=== PATIENT | male | born 1965 ===

== ENCOUNTER 2020-07-20 06:12 | Outpatient (REF) | payer OTHER, SELFPAY ==
[2020-07-20 07:17] LABS: Estimated Average Glucose 120 mg/dL; Hemoglobin A1c % 5.8 %
[2020-07-20 07:23] LABS: Alanine Aminotransferase 17 U/L (0-40); Albumin Level 4.2 g/dL (3.5-5.0); Alkaline Phosphatase 42 U/L (39-117); Anion Gap 13 (12-20); Aspartate Amino Transferase 20 U/L (5-37); Bilirubin Total 0.5 mg/dL (0.0-1.0); Blood Urea Nitrogen 17 mg/dL (9-16); Calcium 8.4 mg/dL (8.4-10.2); Carbon Dioxide 25 mmol/L (22-29); Chloride 105 mmol/L (96-108); Estimated Glomerular Filt Rate > 60; Glucose Random 102 mg/dL (60-115); Potassium 4.3 mmol/l (3.3-5.1); Sodium 139 mmol/L (135-145); Total Protein 6.7 g/dL (6.5-8.0)
== END 2020-07-20 06:13 | disposition home or self-care (01) ==
LOC: HO.LAB 06:12
PROVIDERS: PCP Internal Medicine; Visit Provider Internal Medicine
DX: R73.02 Impaired glucose tolerance (oral) (principal)
CPT/HCPCS: 80053; 83036

== ENCOUNTER 2020-11-18 12:04 | Emergency (ER) | payer OTHER, SELFPAY ==
--- NOTE | ~2020-11-18 | US_ITS ---
EXAMINATION: US SCROTUM CLINICAL INFORMATION: Pain. Evaluate for torsion.. COMPARISON: None TECHNIQUE: A sonogram of the scrotum was performed assessing yin-scale appearance and color Doppler flow. Spectral Doppler analysis of the arterial and venous flow were performed in the testes bilaterally. FINDINGS: RIGHT: Right testicle measures 4.3 x 2 x 3.2 cm. No focal testicular parenchymal lesions are visualized. There is an appendix testis. Spectral Doppler analysis of the arterial and venous flow is normal in the right testis. Right epididymal head is normal in size. There is a small right hydrocele. No right varicocele is seen. Right epididymal Doppler flow is increased. LEFT: Left testicle measures 3.8 x 2.1 x 3.1 cm. Left testicular echotexture is slightly heterogeneous. No focal testicular parenchymal lesions are visualized. There is an appendix testis. Spectral Doppler analysis of the arterial and venous flow is increased in the left testis. Left epididymal head is normal in size. There is a small left hydrocele. No left varicocele is seen. Left epididymal Doppler flow is increased. US/US scrotum IMPRESSION: No evidence of torsion. Increased flow to the left testicle and the left testicle is slightly heterogeneous questionable for orchitis. There is also increased flow to both epididymides questionable for bilateral epididymitis. There are small bilateral hydroceles.
--- NOTE | ~2020-11-18 | US_ITS ---
EXAMINATION: US SCROTUM CLINICAL INFORMATION: Pain. Evaluate for torsion.. COMPARISON: None TECHNIQUE: A sonogram of the scrotum was performed assessing yin-scale appearance and color Doppler flow. Spectral Doppler analysis of the arterial and venous flow were performed in the testes bilaterally. FINDINGS: RIGHT: Right testicle measures 4.3 x 2 x 3.2 cm. No focal testicular parenchymal lesions are visualized. There is an appendix testis. Spectral Doppler analysis of the arterial and venous flow is normal in the right testis. Right epididymal head is normal in size. There is a small right hydrocele. No right varicocele is seen. Right epididymal Doppler flow is increased. LEFT: Left testicle measures 3.8 x 2.1 x 3.1 cm. Left testicular echotexture is slightly heterogeneous. No focal testicular parenchymal lesions are visualized. There is an appendix testis. Spectral Doppler analysis of the arterial and venous flow is increased in the left testis. Left epididymal head is normal in size. There is a small left hydrocele. No left varicocele is seen. Left epididymal Doppler flow is increased. US/US scrotum doppler IMPRESSION: No evidence of torsion. Increased flow to the left testicle and the left testicle is slightly heterogeneous questionable for orchitis. There is also increased flow to both epididymides questionable for bilateral epididymitis. There are small bilateral hydroceles.
[2020-11-18 12:30] VITALS: BP 139/74; PULSE 65; RESP 16; TEMP 37.1; O2SAT 99; BMI 33.0
[2020-11-18 14:17] VITALS: BP 140/71; PULSE 59; RESP 14; TEMP 36.6; O2SAT 98
[2020-11-18 14:47] LABS: MANUAL DIFF FLAG NO
[2020-11-18 14:51] LABS: Basophils Absolute Auto 0.1 X10*3/uL (0.0-0.2); Basophils Percent Auto 0.8 % (0-2); Eosinophils Absolute Auto 0.3 X10*3/uL (0.0-0.4); Eosinophils Percent Auto 3.6 % (0-4); Hematocrit 40.9 % (42-52); Imm Gran Abs Auto 0.02 X10*3/uL (0.00-0.03); Imm Gran Pct Auto 0.3 % (0.0-0.4); Lymphocytes Absolute Auto 2.5 X10*3/uL (1.2-4.9); Lymphocytes Percent Auto 33.4 % (20-40); Mean Corpuscular HGB Conc 31.8 g/dl (31.0-36.0); Mean Corpuscular Hemoglobin 26.7 pg (27.0-33.0); Mean Corpuscular Volume 84.2 fL (80-98); Mean Platelet Volume 9.3 fL (9.4-12.4); Monocytes Absolute Auto 0.7 X10*3/uL (0.1-1.2); Monocytes Percent Auto 8.6 % (2-11); Neutrophils Percent Auto 53.3 % (45-73); Platelet Count 261 X10*3/uL (160-400); Red Blood Count 4.86 X10*6/uL (4.60-5.80); Red Cell Distribution Width 13.9 % (11.0-16.0); White Blood Count 7.6 X10*3/uL (4.8-10.8)
[2020-11-18 15:17] LABS: Alanine Aminotransferase 23 U/L (0-40); Albumin Level 4.4 g/dL (3.5-5.0); Alkaline Phosphatase 46 U/L (39-117); Anion Gap 9 (12-20); Aspartate Amino Transferase 21 U/L (5-37); Bilirubin Total 0.4 mg/dL (0.0-1.0); Blood Urea Nitrogen 16 mg/dL (9-16); Calcium 8.9 mg/dL (8.4-10.2); Carbon Dioxide 28 mmol/L (22-29); Chloride 107 mmol/L (96-108); Creatinine Clr Calc Pharmacy 103.4; Estimated Glomerular Filt Rate > 60; Glucose Random 109 mg/dL (60-115); Potassium 4.1 mmol/L (3.3-5.1); Sodium 140 mmol/L (135-145); Total Protein 7.1 g/dL (6.5-8.0)
--- NOTE | 2020-11-18 16:06 | ED.MALEGU ---
HPI - Male Genitourinary General Chief complaint: General Medical Stated complaint: ABD PAIN Time Seen by Provider: 11/18/20 13:56 Source: patient Mode of arrival: ambulatory Limitations: language barrier (Congolese-speaking) History of Present Illness HPI Narrative: 55-year-old male with a past medical history of asthma, impaired glucose intolerance and tubular adenoma of colon presenting to the ED with complaints of atraumatic left groin pain for the past week worse today. Reports that he walks a lot denies any other possible injuries. Denies any fevers, nausea/vomiting, abdominal pain, dysuria, hematuria, abnormal penile discharge, testicular pain/swelling, lesions or sores to the penis, or thoughts of STD. Denies any other symptom complaints or concerns at this time. Patient reports he was sexually active 3 months ago with someone he is no longer with and he did not use condoms. Related Data Previous Rx's Medication Instructions Recorded budesonide-formoterol HFA 80 2 puff INHALATION BID #10.2 g 06/30/20 mcg-4.5 mcg/actuation aerosol inhaler albuterol sulfate 90 mcg/actuation 2 puff INHALATION Q4-6H PRN #18 g 07/02/20 aerosol inhaler morphine 15 mg tablet,extended 15 mg PO Q8H PRN #84 tab 10/20/20 release oxycodone-acetaminophen 5 mg-325 1 tab PO Q6H PRN 28 Days #112 tab 10/20/20 mg tablet cyclobenzaprine 10 mg PO Q8H #10 tab 11/18/20 doxycycline monohydrate 100 mg PO BID 10 Days #20 cap 11/18/20 naproxen 500 mg PO BID PRN #10 tab 11/18/20 Allergies Allergy/AdvReac Type Severity Reaction Status Date / Time No Known Allergies Allergy Verified 06/08/20 09:56 Review of Systems Review of Systems: Constitutional : No Weight loss, No Fever, No Chills, No Night Sweats, No Fatigue, NoMalaise ENT/Mouth: No ear pain, No sore throat, No Difficulty swallowing Cardiovascular : No Chest Pain, No SOB, No Dyspnea on Exertion, No Orthopnea, NoEdema, No Palpitations Respiratory : No Cough, No Sputum, No Wheezing, No Dyspnea Gastrointestinal : No Nausea, No Vomiting, No abdominal pain, No Diarrhea, No blood streaked emesis, No coffee-ground emesis, No gross hematemesis, No blood streak stool, No gross hematochezia, No Melena Genitourinary : + left groin pain, No irregular bleeding, No Dysuria, No Urinary Frequency, No Hematuria,No Urinary Incontinence, No Urgency, No Flank Pain Musculoskeletal : No joint pain, No Myalgias, No Joint Swelling Skin : No Skin Lesions, No rash Neuro : No Weakness, No Numbness, No Paresthesias, No Loss of Consciousness, NoDizziness, No Headache Psych : No Social Issues, Heme/Lymph: No Bruising, No Bleeding,No Lymphadenopathy Endocrine : No Polyuria, No Polydipsia, No Temperature Intolerance Yes all other systems are reviewed and are negative [facility] Past Medical History Attestation statement: The following information was validated with the patient. Medical History Asthma Carpal tunnel syndrome of right wrist Cervicalgia Impaired glucose tolerance Obesity (BMI 30-39.9) Tubular adenoma of colon Ulnar nerve entrapment Surgical History History of neck surgery Family History Family History Father Cancer Diabetes Hypertension Mother Hypertension CVD (cardiovascular disease) Social History Social History Alcohol intake: never Smoking Status: Never smoker Use of substances other than those prescribed or required for medical reasons: No Advance Directives: No Advance Directives Information Provided: No Physical Exam Vital Signs: Vital Signs: Last Vital Signs Temp 97.9 F 11/18/20 14:17 Pulse 59 11/18/20 14:17 Resp 14 11/18/20 14:17 BP 140/71 H 11/18/20 14:17 Pulse Ox 98 11/18/20 14:17 Body Mass Index 33.0 vital signs have been reviewed as normal and appeared to be correct. Blood pressure normal. Heart rate normal. Respiration rate normal. Temperature normal. Oxygen saturation normal. Appearance: Alert. Oriented X3. No acute distress. Head: Normal external exam. Normocephalic. Atraumatic. Eyes: PERRLA. EOMI. Conjunctiva and sclera normal. Eyelids normal. ENT: Pharynx normal. Uvula midline. Moist mucous membranes. Neck: Normal inspection. Neck supple. FROM. No adenopathy. Thyroid Normal. No meningeal signs. No neck mass noted. CVS: Normal heart rate and rhythm. Heart sound normal. No murmurs noted. Pulses normal throughout. Respiratory: No respiratory distress. Painless inspiration. Breath sounds normal. No wheezes/rales/rhonchi noted. Chest nontender. No accessory muscle usage noted or decreased air movement noted. Abdomen: Soft and nontender. Bowel sounds normal in all 4 quadrants. No distention noted. No organomegaly noted. No visible injury noted. : Chaperoned by SRI Garcia. Normal external exam. No ecchymosis/edema/erythema. No hernia noted. No inguinal lymphadenopathy noted. Mild left groin pain. No lacerations/lesions/induration noted. Normal penis. No Condyloma noted. No ecchymosis/erythema/swelling/edematous/mass/nodule/papules/pustules/vesicles. Not consistent with paraphimosis or phimosis. No ulcerations or lesions noted. The meatus is normal. No meatal discharge noted. No blood at the meatus. The scrotum is normal. Cremasteric reflex absent. No ecchymosis/edematous/erythema noted. Testicles are both descended bilaterally. No hydrocele noted. No inguinal hernia noted. No scrotal mass/swelling noted. No ulcerations or varicocele. Testicles appear normal. They lie normal. Epididymides normal. No blue dot sign. Testicles are not enlarged. No epididymal induration/mass/tenderness. No testicular mass noted. No testicular swelling/tenderness. No high-riding testicle noted. No testicular atrophy noted. Back: No CVA tenderness. Full range of motion noted. Skin: Skin warm and dry. Normal skin color. Normal skin turgor. No rashes/lesions/lacerations noted. Extremities: Extremities exhibit normal range of motion. Extremities nontender. Neuro: Oriented X 3. No motor deficit. No sensory deficit. Reflexes normal. Course Course Course Narrative: 55-year-old male presenting to the ED with atraumatic left groin pain for the past week worse today. Unsure if it is related to walking. Recently sexually active unprotected. - labs obtained and all within normal limits. - ultrasound revealed No evidence of torsion. Increased flow to the left testicle and the left testicle is slightly heterogeneous questionable for orchitis. There is also increased flow to both epididymides questionable for bilateral epididymitis. There are small bilateral hydroceles. - awaiting UA and gonorrhea chlamydia sample. - will treat for gonorrhea chlamydia and instructions to return if any new or worsening symptoms to follow up with primary care provider. Patient understands agrees the plan. MDM - Male Genitourinary Medical Records Attestation: I reviewed the patient's medical records. Lab Data Attestation: I reviewed the patient's lab results. Result diagrams: 11/18/20 14:42 11/18/20 14:42 Labs: Lab Results 11/18/20 11/18/20 Range/Units 14:42 14:42 WBC 7.6 (4.8-10.8) X10*3/uL RBC 4.86 (4.60-5.80) X10*6/uL Hgb 13.0 L (14.0-18.0) g/dl Hct 40.9 L (42-52) % MCV 84.2 (80-98) fL MCH 26.7 L (27.0-33.0) pg MCHC 31.8 (31.0-36.0) g/dl RDW 13.9 (11.0-16.0) % Plt Count 261 (160-400) X10*3/uL MPV 9.3 L (9.4-12.4) fL Immature Gran % (Auto) 0.3 (0.0-0.4) % Neut % (Auto) 53.3 (45-73) % Lymph % (Auto) 33.4 (20-40) % Gates % (Auto) 8.6 (2-11) % Eos % (Auto) 3.6 (0-4) % Baso % (Auto) 0.8 (0-2) % Lymph # (Auto) 2.5 (1.2-4.9) X10*3/uL Gates # (Auto) 0.7 (0.1-1.2) X10*3/uL Eos # (Auto) 0.3 (0.0-0.4) X10*3/uL Baso # (Auto) 0.1 (0.0-0.2) X10*3/uL Abs Immat Gran (auto) 0.02 (0.00-0.03) X10*3/uL Absolute Neuts (auto) 4.0 (2.0-8.3) X10*3/uL Absolute Nucleated RBC 0.000 (0.0-0.012) X10*3/uL Nucleated RBC % (auto) 0.0 (0.0-0.2) /100WBC Sodium 140 (135-145) mmol/L Potassium 4.1 (3.3-5.1) mmol/L Chloride 107 (96-108) mmol/L Carbon Dioxide 28 (22-29) mmol/L Anion Gap 9 L (12-20) BUN 16 (9-16) mg/dL Creatinine 0.84 (0.5-1.4) mg/dL Estim Creat Clear Calc 103.4 Estimated GFR > 60 Random Glucose 109 (60-115) mg/dL Calcium 8.9 (8.4-10.2) mg/dL Total Bilirubin 0.4 (0.0-1.0) mg/dL AST 21 (5-37) U/L ALT 23 (0-40) U/L Alkaline Phosphatase 46 (39-117) U/L Total Protein 7.1 (6.5-8.0) g/dL Albumin 4.4 (3.5-5.0) g/dL Imaging Data Scrotum ultrasound: Attestation: I personally reviewed and interpreted this imaging study as follows: Radiologist's impression: FINDINGS: RIGHT: Right testicle measures 4.3 x 2 x 3.2 cm. No focal testicular parenchymal lesions are visualized. There is an appendix testis. Spectral Doppler analysis of the arterial and venous flow is normal in the right testis. Right epididymal head is normal in size. There is a small right hydrocele. No right varicocele is seen. Right epididymal Doppler flow is increased. LEFT: Left testicle measures 3.8 x 2.1 x 3.1 cm. Left testicular echotexture is slightly heterogeneous. No focal testicular parenchymal lesions are visualized. There is an appendix testis. Spectral Doppler analysis of the arterial and venous flow is increased in the left testis. Left epididymal head is normal in size. There is a small left hydrocele. No left varicocele is seen. Left epididymal Doppler flow is increased. US/US scrotum IMPRESSION: No evidence of torsion. Increased flow to the left testicle and the left testicle is slightly heterogeneous questionable for orchitis. There is also increased flow to both epididymides questionable for bilateral epididymitis. There are small bilateral hydroceles. Discharge Plan Discharge Clinical Impression: Acute epididymitis, Acute orchitis, Acute hydrocele Patient Disposition: Home, Self-Care Instructions: Epididymo-Orchitis (ED), Hydrocele (ED) Additional Instructions: You have pending lab results if any are positive you will be contacted. Please do not have any sexual intercourse for at least 10-14 days. Return if any new or worsening symptoms follow-up with her primary care provider. Prescriptions: New cyclobenzaprine 10 mg tablet 10 mg PO Q8H Qty: 10 RF: 0 doxycycline monohydrate 100 mg capsule 100 mg PO BID 10 Days Qty: 20 RF: 0 naproxen 500 mg tablet 500 mg PO BID PRN (Reason: pain) Qty: 10 RF: 0 No Action budesonide-formoterol [Symbicort] 80-4.5 mcg/actuation HFA aerosol inhaler 2 puff inhalation BID Qty: 10.2 RF: 5 albuterol sulfate [ProAir HFA] 90 mcg/actuation HFA aerosol inhaler 2 puff inhalation Q4-6H PRN (Reason: shortness of breath or wheezing) Qty: 18 RF: 2 oxycodone-acetaminophen 5-325 mg tablet 1 tab PO Q6H PRN (Reason: pain) 28 Days Qty: 112 RF: 0 morphine 15 mg tablet extended release 15 mg PO Q8H PRN (Reason: pain) Qty: 84 RF: 0 Referrals: Po,Arash Cates MD [Primary Care Provider] - 2 days Print Language: Congolese
[2020-11-18] MEDS: cefTRIAXone sodium 500 MG, Lidocaine HCl 1 % MPF 1 ML IM (17:07)
[2020-11-18] MEDS: Cyclobenzaprine HCl 10 MG TABLET PO (17:10)
[2020-11-18 17:11] VITALS: BP 137/80; PULSE 66; RESP 16; O2SAT 96
[2020-11-18] MEDS: NaPROXEN 500 MG TABLET PO (17:11)
== END 2020-11-18 17:24 | disposition home or self-care (01) ==
PROVIDERS: Nurse Practitioner Primary Care; Emergency Provider Emergency Medicine; PCP Internal Medicine
DX: N45.1 Epididymitis (principal); N45.2 Orchitis; N43.3 Hydrocele, unspecified; N50.812 Left testicular pain
CPT/HCPCS: 36415; 76870; 80053; 85025; 93975; 96372; 99284; J0696

== ENCOUNTER 2021-02-28 06:26 | Outpatient (REF) | payer OTHER, SELFPAY ==
[2021-02-28 06:59] LABS: MANUAL DIFF FLAG NO
[2021-02-28 07:05] LABS: Basophils Absolute Auto 0.1 X10*3/uL (0.0-0.2); Basophils Percent Auto 1.3 % (0-2); Eosinophils Absolute Auto 0.4 X10*3/uL (0.0-0.4); Eosinophils Percent Auto 5.7 % (0-4); Hematocrit 40.8 % (42-52); Hemoglobin 13.1 g/dl (14.0-18.0); Imm Gran Abs Auto 0.01 X10*3/uL (0.00-0.03); Imm Gran Pct Auto 0.2 % (0.0-0.4); Lymphocytes Absolute Auto 3.1 X10*3/uL (1.2-4.9); Lymphocytes Percent Auto 49.1 % (20-40); Mean Corpuscular HGB Conc 32.1 g/dl (31.0-36.0); Mean Corpuscular Hemoglobin 26.9 pg (27.0-33.0); Mean Corpuscular Volume 83.8 fL (80-98); Mean Platelet Volume 9.7 fL (9.4-12.4); Monocytes Absolute Auto 0.6 X10*3/uL (0.1-1.2); Monocytes Percent Auto 9.4 % (2-11); Neutrophils Absolute Auto 2.2 X10*3/uL (2.0-8.3); Neutrophils Percent Auto 34.3 % (45-73); Platelet Count 237 X10*3/uL (160-400); Red Blood Count 4.87 X10*6/uL (4.60-5.80); Red Cell Distribution Width 13.9 % (11.0-16.0); White Blood Count 6.3 X10*3/uL (4.8-10.8)
[2021-02-28 07:31] LABS: Alanine Aminotransferase 27 U/L (0-40); Albumin Level 4.3 g/dL (3.5-5.0); Alkaline Phosphatase 46 U/L (39-117); Anion Gap 12 (12-20); Aspartate Amino Transferase 26 U/L (5-37); Bilirubin Total 0.3 mg/dL (0.0-1.0); Blood Urea Nitrogen 14 mg/dL (9-16); Calcium 9.1 mg/dL (8.4-10.2); Carbon Dioxide 25 mmol/L (22-29); Chloride 108 mmol/L (96-108); Cholesterol 160 mg/dL; Estimated Glomerular Filt Rate > 60; Glucose Random 114 mg/dL (60-115); HDL Cholesterol 57 mg/dL; LDL Cholesterol Calculated 92 mg/dl; Potassium 4.5 mmol/L (3.3-5.1); Sodium 140 mmol/L (135-145); Triglycerides 56 mg/dL
[2021-02-28 07:39] LABS: Estimated Average Glucose 123 mg/dL; Hemoglobin A1c % 5.9 %
[2021-02-28 07:47] LABS: Free T4 (Free Thyroxine) 0.92 ng/dL (0.71-1.85); Thyroid Stimulating Hormone 1.12 uIU/mL (0.32-4.0)
[2021-02-28 08:07] LABS: Folate 13.2 ng/mL (> or = 4.0); Vitamin B12 648 pg/mL (200-900)
== END 2021-02-28 06:27 | disposition home or self-care (01) ==
LOC: HO.LAB 06:26
PROVIDERS: Visit Provider Internal Medicine
DX: R73.02 Impaired glucose tolerance (oral) (principal); E78.00 Pure hypercholesterolemia, unspecified
CPT/HCPCS: 36415; 80053; 80061; 82607; 82746; 83036; 84439; 84443; 85025

== ENCOUNTER 2021-07-17 08:29 | Emergency (ER) | payer OTHER, SELFPAY ==
--- NOTE | ~2021-07-17 | XR_ITS ---
EXAMINATION: XR SHOULDER, LEFT CLINICAL INFORMATION: Chest pain after moving heavy objects. COMPARISON: None TECHNIQUE: AP external rotation, Grashey, scapular Y, and axillary views of the left shoulder. FINDINGS: The glenohumeral joint space and AC joint space is normal. No visible acute fracture, dislocation or subluxation seen. The soft tissues are normal. XR/XR shoulder LT min 2V IMPRESSION: Unremarkable left shoulder exam.
[2021-07-17 08:43] VITALS: BP 144/71; PULSE 67; RESP 19; TEMP 36.6; O2SAT 98; BMI 32.9
--- NOTE | 2021-07-17 09:07 | ED.EXTPRO ---
HPI - Extremity Problem General Chief complaint: Extremity Injury, Upper Stated complaint: lt shoulder pain Time Seen by Provider: 07/17/21 09:01 Source: patient Mode of arrival: ambulatory History of Present Illness HPI Narrative: 48-year-old male with past medical history of asthma, carpal tunnel, presenting to the ED complaining of left shoulder pain s/p moving Washing machine yesterday. Denies direct injury/trauma. Reports decreased ROM secondary to pain. Denies associated numbness/tingling, weakness, CP/SOB MD Complaint: joint paint Onset (ago): day(s) Pain Consistency: constant Location: left Radiation: none Associated symptoms: denies other symptoms Related Data Previous Rx's Medication Instructions Recorded cyclobenzaprine 10 mg tablet 10 mg PO Q8H #10 tab 11/18/20 doxycycline monohydrate 100 mg 100 mg PO BID 10 Days #20 cap 11/18/20 capsule naproxen 500 mg tablet 500 mg PO BID PRN #10 tab 11/18/20 albuterol sulfate 90 mcg/actuation 2 puff INHALATION Q4-6H PRN #18 g 06/06/21 aerosol inhaler (ProAir HFA) budesonide-formoterol HFA 80 2 puff INHALATION BID #10.2 g 06/12/21 mcg-4.5 mcg/actuation aerosol inhaler (Symbicort) morphine 15 mg tablet,extended 15 mg PO Q8H PRN #84 tab 07/10/21 release oxycodone-acetaminophen 5 mg-325 1 tab PO Q6H PRN 28 Days #112 tab 07/10/21 mg tablet Allergies Allergy/AdvReac Type Severity Reaction Status Date / Time No Known Allergies Allergy Verified 06/06/21 12:53 Review of Systems Review of Systems: Constitutional: No Fever, No Chills ENT/Mouth: No Ear Pain, No Nasal Congestion, No Swallowing Difficulty Cardiovascular: No Chest Pain, No SOB Respiratory: No Cough Gastrointestinal: No Nausea, No Vomiting, No Abdominal pain Genitourinary: No Dysuria, No Flank Pain Musculoskeletal: + joint pain, No Myalgias, No Joint Swelling Skin: No Skin Lesions, No rash Neuro: No Weakness, No Numbness, No Paresthesias Yes all other systems are reviewed and are negative PMFSH Past Medical History Attestation statement: The following information was validated with the patient. Medical History Asthma Carpal tunnel syndrome of right wrist Cervicalgia Impaired glucose tolerance Obesity (BMI 30-39.9) Tubular adenoma of colon Ulnar nerve entrapment Surgical History History of neck surgery Family History Family History Father Cancer Diabetes Hypertension Mother Hypertension CVD (cardiovascular disease) Social History Social History Housing: Apartment Alcohol intake: never Patient Tobacco Use Status: Former Tobacco user Tobacco use type: Cigarette e-Cigarette/Vaping Use: Never Used Second Hand Smoke Exposure: No Advance Directives: No service: No Current occupational status: disabled Physical Exam Vital Signs: Vital Signs: Last Vital Signs Temp 98 F 07/17/21 08:43 Pulse 67 07/17/21 08:43 Resp 19 07/17/21 08:43 BP 144/71 H 07/17/21 08:43 Pulse Ox 98 07/17/21 08:43 Body Mass Index 32.9 Const: General: cooperative, healthy appearing and no acute distress Orientation/consciousness: patient oriented x3 Limitations: no limitations HENMT: Head: Yes normal to inspection, Yes normocephalic and Yes atraumatic Ears: hearing grossly normal bilaterally General nose exam: Normal external nose present Face and sinus: Yes normal facial exam Eyes: General: appearance normal, both eyes and all related structures EOM: EOMs intact bilaterally Neck: Neck: Yes normal visual inspection and Yes no meningeal signs Resp: Effort & Inspection: normal respiratory effort and no respiratory distress Cardio: Rate: regular rate Heart sounds: S1 normal heart sound present and S2 normal heart sound present Peripheral pulses: radial pulses present Skin: Rashes: no rashes Wounds: no wounds Neuro: General: patient oriented x3 and no meningeal signs Gait exam (Neuro): Normal gait present Extrem: Other: Left shoulder with mild swelling. Tender to palpation > anterior aspect AC joint. Limited ROM of shoulder secondary to pain. Sensation intact to light touch. Neurovascular intact distally Course Course Course Narrative: XR shoulder LT min 2V IMPRESSION: Unremarkable left shoulder exam. >> results discussed with patient including worrisome signs and symptoms and you had follow-up with Orthopedics -patient filled 112 pills Percocet 5 mg on 07/10 & 84 pills of morphine 15 mg extended release on 06/18 per [facility] review MDM - Extremity (Nontraumatic) MDM Narrative Medical decision making narrative: 48-year-old male with past medical history of asthma, carpal tunnel, presenting to the ED complaining of left shoulder pain s/p moving Washing machine yesterday. On exam VSS, NAD, physical exam as above, tenderness elicited to left shoulder with pain and decreased ROM. Concern for AC separation/tendinitis vs MSK strain/spasming vs rotator cuff injury. Rule out fracture. Low concern for dislocation Plan: X-ray Medical Records Attestation: I reviewed the patient's medical records. Lab Data Attestation: I reviewed the patient's lab results. Discharge Plan Discharge Clinical Impression: Acute pain of left shoulder Patient Disposition: Home, Self-Care Instructions: Shoulder Pain (ED) Additional Instructions: Your x-ray was unremarkable Continue taking previously prescribed home pain medications In addition Flexeril as a muscle relaxer, take at night as it makes you drowsy, do not drive, drink alcohol, or operate machinery while taking it Naproxen as anti-inflammatory/pain medication You may also take Tylenol Lidoderm patches or numbing patches, apply to painful area Please follow-up with orthopedics. If pain persist or worsen/becomes unbearable please return to the emergency department Prescriptions: No Action budesonide-formoterol [Symbicort] 80-4.5 mcg/actuation HFA aerosol inhaler 2 puff inhalation BID Qty: 10.2 RF: 5 morphine 15 mg tablet extended release 15 mg PO Q8H PRN (Reason: pain) Qty: 84 RF: 0 oxycodone-acetaminophen 5-325 mg tablet 1 tab PO Q6H PRN (Reason: pain) 28 Days Qty: 112 RF: 0 cyclobenzaprine 10 mg tablet 10 mg PO Q8H Qty: 10 RF: 0 doxycycline monohydrate 100 mg capsule 100 mg PO BID 10 Days Qty: 20 RF: 0 naproxen 500 mg tablet 500 mg PO BID PRN (Reason: pain) Qty: 10 RF: 0 albuterol sulfate [ProAir HFA] 90 mcg/actuation HFA aerosol inhaler 2 puff inhalation Q4-6H PRN (Reason: shortness of breath or wheezing) Qty: 18 RF: 0 Referrals: Ludwin Rucker MD [Physician] - 1 week
[2021-07-17] MEDS: Cyclobenzaprine HCl 5 MG TABLET PO (09:34)
== END 2021-07-17 10:57 | disposition home or self-care (01) ==
PROVIDERS: Emergency Provider Emergency Medicine; PCP Internal Medicine
DX: M25.512 Pain in left shoulder (principal); Z87.891 Personal history of nicotine dependence; Z79.899 Other long term (current) drug therapy
CPT/HCPCS: 73030; 99283

== ENCOUNTER → 2021-08-17 11:30 | Outpatient (BNVA) | payer OTHER, SELFPAY | PROVIDERS: PCP Internal Medicine; Visit Provider Orthopaedic Surgery | DX: M24.812 Other specific joint derangements of left shoulder, not elsewhere classified (principal) | CPT/HCPCS: 20610; 99202; 99212; J1100 ==

== ENCOUNTER 2021-08-28 07:31 | Outpatient (REF) | payer OTHER, SELFPAY ==
--- NOTE | ~2021-08-28 | MR_ITS ---
EXAMINATION: MR SHOULDER WITHOUT CONTRAST, LEFT CLINICAL INFORMATION: Left shoulder pain and decreased range of motion. Injury in July 2021. COMPARISON: Left shoulder radiographs dated 07/17/2021. TECHNIQUE: Multisequence MR imaging of the left shoulder was obtained without contrast on a high-field strength scanner. FINDINGS: ROTATOR CUFF: Full-thickness partial tear through the anterior aspect of the supraspinatus tendon measuring up to 2.1 x 2.0 cm (AP x ML). There appear to be a few anterior and posterior tendon fibers remaining intact. Moderate infraspinatus and subscapularis tendinosis. No muscle atrophy or fatty infiltration. BICEPS: Mild proximal long head biceps tendinosis without a measurable tendon defect. CORACOACROMIAL ARCH: The undersurface of the acromion is curved with small subacromial spurs. Moderate acromioclavicular osteoarthritis. LABRUM/CAPSULE: No displaced labral tear. Intact joint capsule. GLENOHUMERAL JOINT/MARROW: Intact articular cartilage. No marrow edema or evidence of acute osseous injury. Degenerative cystic change within the greater tuberosity. Moderate joint effusion. MR/MR shoulder LT wo con IMPRESSION: 1. Full-thickness partial tear through the anterior supraspinatus tendon measuring 2.1 x 2.0 cm with a few anterior and posterior tendon fibers remaining intact. Degenerative cystic change within the underlying greater tuberosity. Moderate infraspinatus and subscapularis tendinosis. 2. Mild proximal long head biceps tendinosis. 3. Moderate acromioclavicular osteoarthritis with small subacromial spurs. 4. Moderate glenohumeral joint effusion.
== END 2021-08-28 07:32 | disposition home or self-care (01) ==
LOC: HO.MRI 07:31
PROVIDERS: PCP Internal Medicine; Visit Provider Orthopaedic Surgery
DX: M24.812 Other specific joint derangements of left shoulder, not elsewhere classified (principal)
CPT/HCPCS: 73221

== ENCOUNTER 2021-09-04 09:00 | Outpatient (RCR) | payer OTHER, SELFPAY ==
--- NOTE | 2021-08-30 09:33 | MHC.PT.EP ---
[facility] [place] Office [place] Office [place] Office [address] Gretta Navarrete [address] [phone] F: [phone] F: [phone] F: [phone] F: [phone] Physical Therapy Plan of Care Date of Evaluation: Date of Surgery: Diagnosis: LEFT SHOULDER INTERNAL DERANGEMENT Assessment: 56 YO MALE REF TO PT S/P LIFTING A WASHING MACHINE 07/16/21 AND FEELING A POP, MRI 08/28/21 REVEALED MR/MR shoulder LT wo con IMPRESSION: 1. Full-thickness partial tear through the anterior supraspinatus tendon measuring 2.1 x 2.0 cm with a few anterior and posterior tendon fibers remaining intact. Degenerative cystic change within the underlying greater tuberosity. Moderate infraspinatus and subscapularis tendinosis. 2. Mild proximal long head biceps tendinosis. 3. Moderate acromioclavicular osteoarthritis with small subacromial spurs. 4. Moderate glenohumeral joint effusion. Dictated By:NEFTALY HUERTA MD Signed By:<Electronically signed by NEFTALY HUERTA MD in OV>08/28/21 1320 Pt HAS H/O CERVICAL SURGERY AND HAS BEEN OOW ON DISABILITY SINCE- HE HAS DECR POSTURAL AWARENESS, LEFT SH AROM DEFICITS, DECR STRENGTH AND SCAP STAB IN Lt SH GIRDLE, HYPOMOB THORACIC REGION, AND PAIN IN LEFT ANT GH/ DELT AREA. FUNCTIONALLY, Pt GUARDS LEFT SH W ALL ADLS, HE IS ABLE TO USE Lt UE FROM ELBOW DISTALLY-> LIMITED REACH, LIFT, CARRY WITH Lt- Pt IS Rt HAND DOMINANT, HE HAD SOME PRE-EXISTING FUNCT LIMITATIONS FROM HIS CERV DX. Pt WPOULD BENEFIT FROM PT TO ADDRESS PAIN AND DEV HEP , IMPROVE ROM, POSTURE, SCAP STAB, AND STRENGTH IN POST RC W RESPECT TO SUPRASPINATUS TRAUMA. Frequency and Duration: The patient will be seen 2 x WK x 5 WKS Short Term Goals: Pt indep self-correct posture to neutral IN VARIED POSTURES IN 1 wk Pt'S LEFT SH PAIN DECR TO 4-5/10 W REG ADLs IN 2 WKS Pt INCR AROM Lt SH IN 2 WKS Senior Care Goals: Pt INDEP HEP PROGR AND SELF-SX MGMT STRATEGIES FOR LEFT SH INJURY IN 5 WKS Pt RESUME REG ADLs TO NAM EVIDENT IN IMPROVED SPADI BY 8-10 POINTS ( AT EVAL 130/130 ) IN 5 WKS Pt SIMUL 3:3 ADLs W WFL MECHANICS (DECR SH AND CERV STRAIN) IN 5 WKS Pt DEMON IMPROVED Lt SH GIRDLE STRENGTH BY AT LEAST 1/2 GRADE IN 5 WKS Treatment Plan: Modalities to reduce pain, spasms and effusion. Manual therapy to restore motion and function. Therapeutic exercise to improve strength and flexibility. Neuromuscular re-education for posture and balance. Therapeutic activities to return to functional activities of daily living. Electronically signed by: Ramona Gamboa,PT Please sign and return to therapist. Thank you for your referral.
--- NOTE | 2021-09-13 09:52 | MHC.PT.DC ---
[facility] [place] Office [place] Office [place] Office [address] Gretta Navarrete 140 [facility] [phone] F: [phone] F: [phone] F: [phone] F: [phone] Physical Therapy Discharge Report Diagnosis: LEFT SHOULDER INTERNAL DERANGEMENT Date of Surgery: Date of Evaluation: 08/30/21 Date of Discharge: 09/13/21 Treatments to Date: 2 Cancellations to Date: 2 No Shows to Date: 1 Discharge Status: Patient Elected to Stop Recommend MD Follow-up Discharge Summary: Pt CONTACTED US AND D/C HIMSELF NOTING HE WAS HAVING SURGERY IN OCTOBER 2021- HE ALSO NOTED HIS RASH HAS WORSENED AND MD FOLLOWING HIM. Electronically signed by: Ramona Gamboa,PT Please sign and return to therapist. Thank you for your referral.
== END 2021-09-13 09:54 | disposition home or self-care (01) ==
LOC: HO.PT 09:00
PROVIDERS: PCP Internal Medicine; Visit Provider Orthopaedic Surgery
DX: M24.812 Other specific joint derangements of left shoulder, not elsewhere classified (principal)
CPT/HCPCS: 97110; 97140; 97162; 97535

== ENCOUNTER → 2021-09-04 13:56 | Outpatient (BNVA) | payer OTHER, SELFPAY | PROVIDERS: PCP Internal Medicine; Visit Provider Orthopaedic Surgery | DX: M75.102 Unspecified rotator cuff tear or rupture of left shoulder, not specified as traumatic (principal) | CPT/HCPCS: 99212 ==

== ENCOUNTER 2021-09-06 11:50 | Emergency (ER) | payer OTHER, SELFPAY ==
[2021-09-06 13:17] VITALS: BP 166/82; PULSE 79; RESP 19; TEMP 36.6; O2SAT 98; BMI 32.9
--- NOTE | 2021-09-06 14:34 | ED.GENADULT ---
HPI - General Adult General Chief complaint: General Medical Stated complaint: Rash Time Seen by Provider: 09/06/21 14:34 Source: patient Mode of arrival: ambulatory Limitations: no limitations History of Present Illness HPI narrative: This is a 56-year-old male who presents to the emergency department with a . Ache rash scattered throughout his body, worse on bilateral upper extremities, palms of hands and on top of his head. Patient tells me that this has been going on for about a week and has been progressively worsening. Patient has tried [id number] Benadryl with no relief. He tells me what is bothering him the most is the itchiness. He does not recall touching anything out of the ordinary. No new detergents, or soaps. No new foods. Denies chest pain, shortness of breath, scratchy throat, sore throat, nausea, vomiting, diarrhea, abdominal pain, weakness, headache, dizziness. Onset (ago): week(s) (1) Location: head, abdomen, left, right, upper extremity and lower extremity Radiation: non-radiation Severity: severe Severity scale (1-10): 10 Quality: constant and other (Itchy ) Pain Consistency: constant Relieving factors: none Exacerbating factors: none Associated symptoms: denies other symptoms Treatments prior to arrival: other (benadryl and other OTC medicines for allergies ) Related Data Previous Rx's Medication Instructions Recorded cyclobenzaprine 10 mg tablet 10 mg PO Q8H #10 tab 11/18/20 doxycycline monohydrate 100 mg 100 mg PO BID 10 Days #20 cap 11/18/20 capsule naproxen 500 mg tablet 500 mg PO BID PRN #10 tab 11/18/20 albuterol sulfate 90 mcg/actuation 2 puff INHALATION Q4-6H PRN #18 g 06/06/21 aerosol inhaler (ProAir HFA) budesonide-formoterol HFA 80 2 puff INHALATION BID #10.2 g 06/12/21 mcg-4.5 mcg/actuation aerosol inhaler (Symbicort) cyclobenzaprine 5 mg tablet 5 mg PO Q8H PRN 5 Days #14 tab 07/17/21 lidocaine 5 % topical patch 1 patch TOPICAL DAILY PRN #30 ea 07/17/21 (Lidoderm) MDD remove after 12 hours naproxen 500 mg tablet 500 mg PO BID PRN 10 Days #20 tab 07/17/21 morphine 15 mg tablet,extended 15 mg PO Q8H PRN #84 tab 08/01/21 release oxycodone-acetaminophen 5 mg-325 1 tab PO Q6H PRN 28 Days #112 tab 08/07/21 mg tablet hydroxyzine HCl 25 mg tablet 25 mg PO BID PRN #14 tab 09/06/21 prednisone 20 mg tablet 40 mg PO DAILY 4 Days #8 tab 09/06/21 Allergies Allergy/AdvReac Type Severity Reaction Status Date / Time No Known Allergies Allergy Verified 08/17/21 11:51 Review of Systems Review of Systems: Constitutional : No Fever, No Chills, Cardiovascular : No Chest Pain, No SOB Respiratory : No Dyspnea Gastrointestinal : No abdominal pain Musculoskeletal : No Joint Swelling Skin : + rash, No skin laceration Neuro : No Weakness, No Numbness Psych : No SI/HI Yes all other systems are reviewed and are negative PMFSH Past Medical History Attestation statement: The following information was validated with the patient. Source: old records reviewed and nursing notes reviewed Medical History Asthma Carpal tunnel syndrome of right wrist Cervicalgia Impaired glucose tolerance Obesity (BMI 30-39.9) Tubular adenoma of colon Ulnar nerve entrapment Surgical History History of neck surgery Family History Family History Father Cancer Diabetes Hypertension Mother Hypertension CVD (cardiovascular disease) Social History Social History Housing: Apartment Alcohol intake: never Patient Tobacco Use Status: Former Tobacco user Tobacco use type: Cigarette e-Cigarette/Vaping Use: Never Used Second Hand Smoke Exposure: No Advance Directives: No Advance Directives Information Provided: No service: No Current occupational status: disabled Physical Exam Vital Signs: Vital Signs: Last Vital Signs Temp 98.1 F 09/06/21 15:10 Pulse 75 09/06/21 15:10 Resp 18 09/06/21 15:10 BP 139/77 09/06/21 15:10 Pulse Ox 99 09/06/21 15:10 BMI result Body Mass Index 32.9 VSS Appearance: Alert.? Oriented X3.? No acute distress.? Head: Normocephalic, atraumatic, no step-offs or deformities Eyes: Pupils equal, round and reactive to light.? ENT: Pharynx normal.? Neck: Normal inspection.? Neck supple.? CVS: Normal heart rate and rhythm.? Pulses normal.? Respiratory: No respiratory distress.? Breath sounds normal.? Abdomen: Soft and nontender.? Skin: Skin warm and dry.? Normal skin color.? Normal skin turgor.?+ uriticaria and rash over his body (images below) on palms and soles. Extremities: No lower extremity edema.? No calf ttp. 5/5 strength to bilateral upper and lower extremities Back: No midline tenderness, no C-spine tenderness, full range of motion, no CVA tenderness bilaterally Neuro: Oriented X 3.? No motor deficit.? No sensory deficit. Course Reevaluation(s) Reevaluation #1: I spoke to the patient and had a lengthy conversation with him about sexually transmitted infections, expressed my concern for possibility of syphilis. Patient got a little bit upset and tells me no no no I do not have this. He tells me he would not want prophylactic treatment for syphilis, gonorrhea or chlamydia. He denies dysuria, new sexual partners, penile discharge, headache, altered mentation. Time: 15:19 Medical Decision Making [facility] Narrative Medical decision making narrative: 151 56 yo m presents with urticaria and a rash scattered throughout his body including palms and soles. PE- urticaria and puritic rash (images in the chart) Plan- I will give hydroxyzine, prednisone and will obtain a syphilis test as I am concerned for syphilis since the rash is palms and soles. Medical Records Medical records reviewed: Yes I reviewed the patient's medical records. Lab Data Lab results reviewed: Yes I reviewed the patient's lab results. Labs: Lab Results 09/06/21 Range/Units 15:23 T.pallidum Ab (EIA) Nonreactive (Nonreactive) Critical Care Time Critical Care Time Critical Care Time: No Discharge Plan Discharge Clinical Impression: Urticaria, Rash Patient Disposition: Home, Self-Care Instructions: Urticaria (ED), Acute Rash (ED), Cold Compress or Soak (ED) Additional Instructions: Take your medications as prescribed. If you were prescribed antibiotics today, it is important that you take your medication to their entirety, do not skip any doses, do not finish them early. Follow-up with your primary care provider this week. One lab test is still pending, will call you only with positive results Return to the emergency department with new or worsening symptoms. Such as chest pain, trouble breathing, fevers, chills, nausea, vomiting. In case of emergency call 911 Prescriptions: New hydroxyzine HCl 25 mg tablet 25 mg PO BID PRN (Reason: itching) Qty: 14 RF: 0 prednisone 20 mg tablet 40 mg PO DAILY 4 Days Qty: 8 RF: 0 No Action budesonide-formoterol [Symbicort] 80-4.5 mcg/actuation HFA aerosol inhaler 2 puff inhalation BID Qty: 10.2 RF: 5 morphine 15 mg tablet extended release 15 mg PO Q8H PRN (Reason: pain) Qty: 84 RF: 0 oxycodone-acetaminophen 5-325 mg tablet 1 tab PO Q6H PRN (Reason: pain) 28 Days Qty: 112 RF: 0 cyclobenzaprine 10 mg tablet 10 mg PO Q8H Qty: 10 RF: 0 doxycycline monohydrate 100 mg capsule 100 mg PO BID 10 Days Qty: 20 RF: 0 naproxen 500 mg tablet 500 mg PO BID PRN (Reason: pain) Qty: 10 RF: 0 lidocaine [Lidoderm] 5 % adhesive patch,medicated 1 patch topical DAILY MDD remove after 12 hours PRN (Reason: pain) Qty: 30 RF: 0 naproxen 500 mg tablet 500 mg PO BID PRN (Reason: pain) 10 Days Qty: 20 RF: 0 cyclobenzaprine 5 mg tablet 5 mg PO Q8H PRN (Reason: pain (scale score 7-10)) 5 Days Qty: 14 RF: 0 albuterol sulfate [ProAir HFA] 90 mcg/actuation HFA aerosol inhaler 2 puff inhalation Q4-6H PRN (Reason: shortness of breath or wheezing) Qty: 18 RF: 0 Referrals: [place] [Primary Care Provider] - 2 days Stand Alone Forms: Work/School Release
[2021-09-06 15:10] VITALS: BP 139/77; PULSE 75; RESP 18; TEMP 36.7; O2SAT 99
[2021-09-06] MEDS: hydrOXYzine HCL 25 MG TABLET PO (15:19)
[2021-09-06] MEDS: predniSONE 20 MG TABLET 40 MG PO (15:19)
[2021-09-06 16:04] LABS: Syphilis Screen Nonreactive (Nonreactive)
== END 2021-09-06 16:46 | disposition home or self-care (01) ==
PROVIDERS: Physician Assistant; Emergency Provider Emergency Medicine
DX: L50.0 Allergic urticaria (principal); R51.9 Headache, unspecified; M79.601 Pain in right arm; R10.9 Unspecified abdominal pain; Z79.899 Other long term (current) drug therapy; Z87.891 Personal history of nicotine dependence
CPT/HCPCS: 36415; 86780; 99283; 99284

== ENCOUNTER → 2021-10-06 10:57 | Outpatient (BNVA) | payer OTHER, SELFPAY | PROVIDERS: Visit Provider Physician Assistant | DX: M75.102 Unspecified rotator cuff tear or rupture of left shoulder, not specified as traumatic (principal) | CPT/HCPCS: 99212 ==

== ENCOUNTER 2021-10-25 09:49 | Day surgery (SDC) | payer OTHER, SELFPAY ==
[2021-10-19 13:08] VITALS: BMI 33.8
[2021-10-25] VITALS (10 sets, daily range): BP systolic 120–179; BP diastolic 70–98; PULSE 75–87; RESP 12–20; TEMP 36.2–36.7; O2SAT 92–98
--- NOTE | 2021-10-25 10:19 | P.CONAN_ITS ---
HPI - Anesthesia Eval Consult details Narrative: Left Shoulder Pain PMFSH Active Problems Active Problems: All Active Problems (Updated 10/10/21 @ 13:36 by Arash Gerard MD) Epididymitis (Acute) Internal derangement of left shoulder (Acute) Rotator cuff tear, left (Acute) Annual physical exam (Acute) Impaired fasting blood sugar (Acute) Ulnar nerve entrapment (Acute) Tubular adenoma of colon (Acute) Obesity (BMI 30-39.9) (Acute) Asthma (Acute) Cervicalgia (Acute) Past Medical History Medical History (Updated 10/10/21 @ 13:36 by Arash Gerard MD) Asthma Carpal tunnel syndrome of right wrist Cervicalgia Obesity (BMI 30-39.9) Tubular adenoma of colon Ulnar nerve entrapment Family History Family History Father Cancer Diabetes Hypertension Mother Hypertension CVD (cardiovascular disease) Family history of problems with anesthesia: No Surgical History Surgical History (Updated 10/19/21 @ 12:16 by Kandice Morse RN) History of neck surgery Hx of colonoscopy History of Problems with Anesthesia: No Social History Social History (Updated 10/10/21 @ 13:25 by Arash Gerard MD) Housing: Apartment Are you a primary rn intensive care unit to a significant other at home: No Do you presently have visiting nurse or other home services: No Alcohol intake: never Patient Tobacco Use Status: Former Tobacco user Quit Date: 1994 Tobacco use type: Cigarette Years Smoked: 1994 e-Cigarette/Vaping Use: Never Used Second Hand Smoke Exposure: No Have you been hit, kicked, punched, or otherwise hurt by someone within the past year? If so, by whom?: No Are you DNR?: No Advance Directives: No Advance Directives Information Provided: No Advance Directives on File: No Recently lost weight without trying: No Eating poorly because of decreased appetite: No Nutrition Risks: No Nutritional Risk service: No Current occupational status: disabled Meds Allergies Allergy/AdvReac Type Severity Reaction Status Date / Time No Known Allergies Allergy Verified 10/19/21 12:16 Active Medications: Current Medications Lactated Ringer's (Lr) 1,000 mls @ 50 mls/hr IVCONT .Q20H TEDDY Cefazolin Sodium/Dextrose (Ancef) 2 gm in 50 mls @ 100 mls/hr IV PREOP ONE Stop: 10/25/21 10:22 Home Medications Medication Instructions Recorded Confirmed Last Taken Type lidocaine 5 % topical patch 1 patch TOPICAL NEEDED 10/19/21 10/19/21 Unknown History Exam Exam Date and Time: October 25, 2021 1019 Height,Weight and Vital Signs: Height 5 ft 7 in Weight 97.976 kg Last Vital Signs Temp 98.1 F 10/25/21 10:10 Pulse 75 10/25/21 10:10 Resp 16 10/25/21 10:10 BP 137/76 10/25/21 10:10 Pulse Ox 98 10/25/21 10:10 Airway Mallampati Class: III TM Dist: >3cm Neck ROM: Full Partial: Lower Loose/Missing/Broken Teeth: Yes Heart: [id number] Lungs: CTA b/l Assessment and Plan Assessment Anesthesia Assessment: Anesthesia Plan Discussed and Chart Reviewed Final Anesthetic Review Family History of Problems with Anesthesia: No History of Problems with Anesthesia: No NPO: Yes ASA Class: III Final Preanesthetic Review: No Changes in Pt Med Stat, Meds/Allgs Chart Reviewed, Consent Obtained/Reviewed and Anes Risks/Benef Reviewed Patient Risk: Intermediate Procedure Risk: Intermediate Assessment/Block/Sedation in SS: Assess/Block/Sedation-SS Anesthetic Plan Anesthetic Plan: GA, Regional Block and Agree w/ Assess. and Plan Disposition: Standard PACU
[2021-10-25] MEDS: Lactated Ringers 1,000 ML 50 ML IVCONT (10:30)
--- NOTE | 2021-10-25 11:31 | MHC.SHP ---
Pre-Procedural Eval Section A Date of Service: 10/25/21 The patient is an INPATIENT: No Changes since office visit: Yes Patient answered all questions; No Cold of Flu in the past 2 weeks, No New Medical Problems and No Changes in Medication The History & Physical has been completed within 30 days and I have reviewed it.: Yes Section B Chief Complaint: rotator cuff tear Allergies: Allergies Allergy/AdvReac Type Severity Reaction Status Date / Time No Known Allergies Allergy Verified 10/19/21 12:16 Plan I have reviewed the history and physical and performed a pertinent physical examination on my patient. No changes have occurred unless specified.
--- NOTE | 2021-10-25 13:37 | P.BOP_ITS ---
Brief Operative Note Date of Service: 10/25/21 Pre-op diagnosis: left rotrator cuff tear Post-op diagnosis: same Procedure: Left rotator cuff repair Implants: [employer]on [employer]hew helacoil x 2, knotless x2 Surgeon: Ludwin Rucker MD Anesthesia: GETA and regional Was an Sports Marketing Internship used for this Procedure?: Yes Sports Marketing Internship: Heather Vinson Estimated blood loss (mL): 15 IV fluids (mL): 1,000 Pathology: none sent Condition: stable Disposition: PACU
--- NOTE | 2021-10-25 13:39 | W.PM.OPN ---
Operative Note Operative Note Date of Service: 10/25/21 Narrative: Pre-op diagnosis: left rotrator cuff tear Post-op diagnosis: same Procedure: Left rotator cuff repair Implants: [employer] Nephew helacoil x 2, knotless x2 Surgeon: Ludwin Rucker MD Anesthesia: GETA and regional Was an Recreational Therapist used for this Procedure?: Yes Recreational Therapist: Heather Vinson Estimated blood loss (mL): 15 IV fluids (mL): 1,000 Pathology: none sent Condition: stable Disposition: PACU Procedure in detail: Patient was brought to the operating room and placed the the beach chair position. All bony prominences were well padded and the limb was prepped and draped in standard sterile fashion. A time out was called to identify proper site, proper procedure and proper surgeon. IV antibiotics per weight were administered. I began by making a posterolateral stab incision with a 15 blade. A blunt trochar was placed into the glenohumeral joint and I insufflated the joint with saline and a 30 degree arthroscope was placed. I established an outside- in anterior portal just distal to the biceps tendon. I then began my inspection of the glenohumeral joint. There was a small central glenoid chondrolmalacia and cartilage surfaces were otherwise normal. Gutter was clean and there was synovitis of the anterior interval and superior capsule. There was fraying of the anterior labrum but gleno-complex was intact. Subscapularis was intact. There was a full thickness rotator cuff tear that could be visualized from the glenohumeral joint. I then removed the trochar and entered the subacromial space. A direct lateral portal was then established and I performed a bursectomy. The cuff was then examined. There was a complete tear of the supraspinatus. I placed two medial double loaded helacoil and two lateral knotless anchors. The footprint was debrided down to bleeding bone and the cuff was compressed over the footprint. A small subacromial decompression was perfromed. Once I was satisfied with the repair final images were captured and I removed all instrumentation. Portals were closed with nylon. Patient was placed in an abduction sling, extubated and brought to the recovery room in stable condition. There were no known complications.
[2021-10-25] MEDS: fentaNYL citrate/PF 100 MCG/2 ML VIAL 50 MCG IVPUSH (13:55)
[2021-10-25] MEDS: oxyCODONE HCl Immed Release 5 MG TABLET 10 MG PO (13:57)
== END 2021-10-25 15:59 | disposition home or self-care (01) ==
LOC: HO.SSS 09:50
PROVIDERS: PCP Internal Medicine; Visit Provider Orthopaedic Surgery
PROC: (CPT 29827; principal; 2021-10-25 12:40)
DX: S46.012A Strain of muscle(s) and tendon(s) of the rotator cuff of left shoulder, initial encounter (principal); X50.0XXA Overexertion from strenuous movement or load, initial encounter; X50.9XXA Other and unspecified overexertion or strenuous movements or postures, initial encounter; Y93.89 Activity, other specified; Y92.9 Unspecified place or not applicable; Y99.8 Other external cause status; G56.20 Lesion of ulnar nerve, unspecified upper limb; J45.909 Unspecified asthma, uncomplicated; E66.9 Obesity, unspecified; Z68.33 Body mass index [BMI] 33.0-33.9, adult; R73.02 Impaired glucose tolerance (oral); Z87.891 Personal history of nicotine dependence
CPT/HCPCS: 29827; 29826; C1713; J0131; J0171; J0690; J1100; J1170; J2250; J2405; J3010

== ENCOUNTER 2021-10-30 08:57 | Outpatient (RCR) | payer OTHER, SELFPAY | END 2021-12-19 13:37 | disposition home or self-care (01) | LOC: HO.PT 08:57 | PROVIDERS: Visit Provider Physician Assistant | DX: M75.102 Unspecified rotator cuff tear or rupture of left shoulder, not specified as traumatic (principal) ==

== ENCOUNTER → 2021-11-02 14:56 | Outpatient (BNVA) | payer OTHER, SELFPAY | PROVIDERS: Visit Provider Physician Assistant | DX: M75.102 Unspecified rotator cuff tear or rupture of left shoulder, not specified as traumatic (principal) | CPT/HCPCS: 99212 ==

== ENCOUNTER → 2021-12-01 09:53 | Outpatient (BNVA) | payer OTHER, SELFPAY | PROVIDERS: PCP Internal Medicine; Visit Provider Physician Assistant | DX: M75.102 Unspecified rotator cuff tear or rupture of left shoulder, not specified as traumatic (principal) | CPT/HCPCS: 99212 ==

== ENCOUNTER 2021-12-20 07:41 | Outpatient (REF) | payer OTHER, SELFPAY ==
[2021-12-20 08:03] LABS: MANUAL DIFF FLAG NO
[2021-12-20 08:33] LABS: Basophils Absolute Auto 0.1 X10*3/uL (0.0-0.2); Basophils Percent Auto 0.7 % (0-2); Eosinophils Absolute Auto 0.3 X10*3/uL (0.0-0.4); Eosinophils Percent Auto 3.1 % (0-4); Hematocrit 42.4 % (42.0-52.0); Hemoglobin 13.8 g/dl (14.0-18.0); Imm Gran Abs Auto 0.02 X10*3/uL (0.00-0.03); Imm Gran Pct Auto 0.2 % (0.0-0.4); Lymphocytes Absolute Auto 3.2 X10*3/uL (1.2-4.9); Lymphocytes Percent Auto 38.3 % (20-40); Mean Corpuscular HGB Conc 32.5 g/dl (31.0-36.0); Mean Corpuscular Volume 82.8 fL (80.0-98.0); Mean Platelet Volume 9.4 fL (9.4-12.4); Monocytes Absolute Auto 0.6 X10*3/uL (0.1-1.2); Monocytes Percent Auto 7.7 % (2-11); Neutrophils Absolute Auto 4.1 x10*3/uL (2.0-8.3); Platelet Count 305 X10*3/uL (160-400); Red Blood Count 5.12 X10*6/uL (4.60-5.80); White Blood Count 8.3 X10*3/uL (4.8-10.8)
[2021-12-20 08:50] LABS: Estimated Average Glucose 131 mg/dL; Hemoglobin A1c % 6.2 %
[2021-12-20 09:03] LABS: Alanine Aminotransferase 34 U/L (0-40); Albumin Level 4.4 g/dL (3.5-5.0); Alkaline Phosphatase 58 U/L (39-117); Anion Gap 13 (12-20); Aspartate Amino Transferase 22 U/L (5-37); Bilirubin Total 0.5 mg/dL (0.0-1.0); Blood Urea Nitrogen 11 mg/dL (9-16); Calcium 9.6 mg/dL (8.4-10.2); Carbon Dioxide 27 mmol/L (22-29); Chloride 105 mmol/L (96-108); Cholesterol 176 mg/dL; Estimated Glomerular Filt Rate > 60; Glucose Random 108 mg/dL (60-115); HDL Cholesterol 65 mg/dL; LDL Cholesterol Calculated 96 mg/dl; Potassium 4.7 mmol/L (3.3-5.1); Sodium 140 mmol/L (135-145); Total Protein 7.2 g/dL (6.5-8.0); Triglycerides 75 mg/dL
[2021-12-20 09:25] LABS: Free T4 (Free Thyroxine) 1.04 ng/dL (0.71-1.85); Thyroid Stimulating Hormone 0.66 uIU/mL (0.32-4.0)
[2021-12-20 09:31] LABS: Folate 18.2 ng/mL (> or = 4.0); Vitamin B12 441 pg/mL (200-900)
== END 2021-12-20 07:42 | disposition home or self-care (01) ==
LOC: HO.LAB 07:41
PROVIDERS: PCP Internal Medicine; Visit Provider Internal Medicine
DX: R73.01 Impaired fasting glucose (principal); E78.00 Pure hypercholesterolemia, unspecified; Z12.5 Encounter for screening for malignant neoplasm of prostate
CPT/HCPCS: 36415; 80053; 80061; 82607; 82746; 83036; 84153; 84439; 84443; 85025

== ENCOUNTER → 2021-12-22 12:30 | Outpatient (BNVA) | payer OTHER, SELFPAY | PROVIDERS: PCP Internal Medicine; Visit Provider Physician Assistant | DX: M75.102 Unspecified rotator cuff tear or rupture of left shoulder, not specified as traumatic (principal) | CPT/HCPCS: 99212 ==

== ENCOUNTER → 2022-01-12 09:55 | Outpatient (BNVA) | payer OTHER, SELFPAY | PROVIDERS: PCP Internal Medicine; Visit Provider Physician Assistant | DX: M75.102 Unspecified rotator cuff tear or rupture of left shoulder, not specified as traumatic (principal) | CPT/HCPCS: 99212 ==

== ENCOUNTER 2022-01-16 10:00 | Outpatient (RCR) | payer OTHER, SELFPAY ==
--- NOTE | 2021-11-09 14:27 | MHC.PT.EP ---
[facility] [place] Office [place] Office [place] Office [address] Tomeka Navarrete [address] [phone] F: [phone] F: [phone] F: [phone] F: [phone] Physical Therapy Plan of Care Date of Evaluation: Date of Surgery: 10/25/21 Diagnosis: Large rotator cuff tear, or rupture of L shoulder, traumatic, Large rotator cuff tear, bursectomy, subacromial decompression- 10/25/21 Assessment: Rickie is a 56 year old male who is referred to PT following large rotator cuff tear and repair . Per operative noted pt had supraspinatus repair with bursectomy and subacromial decompression. He is 2 weeks post op. On PT examination he presents with 0/10 pain at rest 9/10 pain with shoulder movements, TTP over anterior shoulder joint line, decreased shoulder ROM, decreased shoulder and scap strength and altered posture. Due to these impairments he has difficulty performing ADLS like dressing, showering, cleaning, cooking and grocery. He would benefit from PT to address the aforementioned impairments and improve tolerance to functional activities. Frequency and Duration: The patient will be seen 2/week for 12 weeks Short Term Goals: 1. Pt will have 50% decrease in pain which will enable him to sleep at night in 3 weeks. 2. Pt will have all shoulder ranges WFL and with a pain no more than 2/10 which will enable him to dress her upper body without difficulty in 5 weeks Hospitality Job Titles Goals: 1. Pt will demonstrate an increase in muscle strength by 1 grade which will enable him to participate in light house keeping like dusting in 7 weeks. 2. Pt will be able to perform IADLS like cleaning, cooking and grocery without pain in 10 weeks. 3. Pt will be independent with all HEPs and return to PLOF in 12 weeks. Treatment Plan: Modalities to reduce pain, spasms and effusion. Manual therapy to restore motion and function. Therapeutic exercise to improve strength and flexibility. Neuromuscular re-education for posture and balance. Therapeutic activities to return to functional activities of daily living. Electronically signed by: Nathalia Edwards PT DPT Please sign and return to therapist. Thank you for your referral.
--- NOTE | 2022-02-08 10:42 | MHC.PT.DC ---
[facility] [place] Office [place] Office [place] Office [address] Gretta Navarrete 140 [facility] [phone] F: [phone] F: [phone] F: [phone] F: [phone] Physical Therapy Discharge Report Diagnosis: Large rotator cuff tear, or rupture of L shoulder, traumatic, Large rotator cuff tear, bursectomy, subacromial decompression- 10/25/21 Date of Surgery: 10/25/21 Date of Evaluation: 11/09/21 Date of Discharge: 02/08/22 Treatments to Date: 16 Cancellations to Date: 1 No Shows to Date: 0 Discharge Status: Patient Elected to Stop Discharge Summary: Rickie was making progress but did not complete his course of PT. He missed his last few appointments. Attempted to call pt to make more appointments however he did not call back to schedule them. He is therefore being d/c from PT. Electronically signed by: Nathalia Edwards PT DPT Please sign and return to therapist. Thank you for your referral.
== END 2022-02-08 10:43 | disposition home or self-care (01) ==
LOC: HO.PT 10:00
PROVIDERS: PCP Internal Medicine; Visit Provider Physician Assistant
DX: M75.102 Unspecified rotator cuff tear or rupture of left shoulder, not specified as traumatic (principal)
CPT/HCPCS: 97014; 97110; 97112; 97140; 97161; 97530

== ENCOUNTER → 2022-04-26 08:59 | Outpatient (BNVA) | payer OTHER, SELFPAY | PROVIDERS: PCP Internal Medicine; Visit Provider Physician Assistant | DX: M75.102 Unspecified rotator cuff tear or rupture of left shoulder, not specified as traumatic (principal) | CPT/HCPCS: 99212 ==

== ENCOUNTER 2022-09-14 06:02 | Outpatient (REF) | payer OTHER, SELFPAY ==
[2022-09-14 06:20] LABS: MANUAL DIFF FLAG NO
[2022-09-14 07:28] LABS: Basophils Absolute Auto 0.1 X10*3/uL (0.0-0.2); Basophils Percent Auto 1.3 % (0-2); Eosinophils Absolute Auto 0.4 X10*3/uL (0.0-0.4); Eosinophils Percent Auto 6.5 % (0-4); Hematocrit 40.6 % (42.0-52.0); Hemoglobin 13.3 g/dl (14.0-18.0); Imm Gran Abs Auto 0.02 X10*3/uL (0.00-0.03); Imm Gran Pct Auto 0.3 % (0.0-0.4); Immature Retic Fraction 11.6 % (2.3-13.4); Lymphocytes Absolute Auto 3.1 X10*3/uL (1.2-4.9); Lymphocytes Percent Auto 51.1 % (20-40); Mean Corpuscular HGB Conc 32.8 g/dl (31.0-36.0); Mean Corpuscular Hemoglobin 27.1 pg (27.0-33.0); Mean Corpuscular Volume 82.7 fL (80.0-98.0); Mean Platelet Volume 9.7 fL (9.4-12.4); Monocytes Absolute Auto 0.7 X10*3/uL (0.1-1.2); Neutrophils Absolute Auto 1.8 x10*3/uL (2.0-8.3); Neutrophils Percent Auto 29.8 % (45-73); Platelet Count 282 X10*3/uL (160-400); Red Blood Count 4.91 X10*6/uL (4.60-5.80); Retic HGB Equivalent 30.9 pg (30.0-35.0); Reticulocytes Absolute 0.051 X10*6/uL (0.026-0.095)
[2022-09-14 07:44] LABS: Estimated Average Glucose 131 mg/dL; Hemoglobin A1C 151.4718 umol/L; Hemoglobin A1c % 6.2 %
[2022-09-14 07:59] LABS: Alanine Aminotransferase 29 U/L (0-40); Albumin Level 4.2 g/dL (3.5-5.0); Alkaline Phosphatase 55 U/L (39-117); Anion Gap 13 (12-20); Aspartate Amino Transferase 26 U/L (5-37); Bilirubin Total 0.3 mg/dL (0.0-1.0); Blood Urea Nitrogen 18 mg/dL (9-16); Calcium 9.1 mg/dL (8.4-10.2); Carbon Dioxide 28 mmol/L (22-29); Chloride 104 mmol/L (96-108); Estimated Glomerular Filt Rate > 60; Glucose Random 108 mg/dL (60-115); Iron 58 mcg/dL (45-160); Percent Iron Saturation 20 % (15-50); Potassium 5.1 mmol/L (3.3-5.1); Sodium 140 mmol/L (135-145); Total Iron Binding Capacity 288 mcg/dL (228-428); Total Protein 6.8 g/dL (6.5-8.0); Unsaturated Iron Binding 230 ug/dL
[2022-09-14 08:16] LABS: Ferritin 95 ng/mL (20-250)
[2022-09-14 08:29] LABS: Folate 13.6 ng/mL (> or = 4.0); Vitamin B12 522 pg/mL (200-900)
== END 2022-09-14 06:03 | disposition home or self-care (01) ==
LOC: HO.LAB 06:02
PROVIDERS: PCP Internal Medicine; Visit Provider Internal Medicine
DX: R73.01 Impaired fasting glucose (principal)
CPT/HCPCS: 36415; 80053; 82607; 82728; 82746; 83036; 83540; 84443; 85025; 85045

== ENCOUNTER 2023-01-16 06:39 | Outpatient (REF) | payer OTHER, SELFPAY ==
[2023-01-16 06:47] LABS: MANUAL DIFF FLAG NO
[2023-01-16 07:03] LABS: Basophils Absolute Auto 0.1 X10*3/uL (0.0-0.2); Basophils Percent Auto 0.8 % (0-2); Eosinophils Absolute Auto 0.2 X10*3/uL (0.0-0.4); Eosinophils Percent Auto 3.2 % (0-4); Hemoglobin 14.2 g/dl (14.0-18.0); Imm Gran Abs Auto 0.01 X10*3/uL (0.00-0.03); Imm Gran Pct Auto 0.1 % (0.0-0.4); Lymphocytes Absolute Auto 2.9 X10*3/uL (1.2-4.9); Lymphocytes Percent Auto 40.7 % (20-40); Mean Corpuscular HGB Conc 31.6 g/dl (31.0-36.0); Mean Corpuscular Hemoglobin 26.4 pg (27.0-33.0); Mean Corpuscular Volume 83.8 fL (80.0-98.0); Mean Platelet Volume 9.3 fL (9.4-12.4); Monocytes Absolute Auto 0.5 X10*3/uL (0.1-1.2); Monocytes Percent Auto 7.1 % (2-11); Neutrophils Absolute Auto 3.4 x10*3/uL (2.0-8.3); Neutrophils Percent Auto 48.1 % (45-73); Platelet Count 259 X10*3/uL (160-400); Red Blood Count 5.37 X10*6/uL (4.60-5.80); Red Cell Distribution Width 15.1 % (11.0-16.0); White Blood Count 7.2 X10*3/uL (4.8-10.8)
[2023-01-16 07:23] LABS: Alanine Aminotransferase 29 U/L (0-40); Albumin Level 4.5 g/dL (3.5-5.0); Alkaline Phosphatase 51 U/L (39-117); Anion Gap 12 (12-20); Aspartate Amino Transferase 23 U/L (5-37); Bilirubin Total 0.4 mg/dL (0.0-1.0); Blood Urea Nitrogen 14 mg/dL (9-16); Calcium 9.6 mg/dL (8.4-10.2); Carbon Dioxide 28 mmol/L (22-29); Chloride 107 mmol/L (96-108); Cholesterol 183 mg/dL; Estimated Glomerular Filt Rate > 60; Glucose Random 109 mg/dL (60-115); HDL Cholesterol 62 mg/dL; LDL Cholesterol Calculated 110 mg/dl; Potassium 4.8 mmol/L (3.3-5.1); Sodium 142 mmol/L (135-145); Total Protein 7.5 g/dL (6.5-8.0); Triglycerides 58 mg/dL
[2023-01-16 07:28] LABS: Estimated Average Glucose 117 mg/dL; Hemoglobin A1C 149.6191 umol/L; Hemoglobin A1c % 5.7 %
[2023-01-16 07:52] LABS: Folate 12.3 ng/mL (> or = 4.0); Free T4 (Free Thyroxine) 0.86 ng/dL (0.71-1.85); Prostate Specific Antigen Scr 0.36 ng/mL (<0.05-4.0); Thyroid Stimulating Hormone 0.96 uIU/mL (0.32-4.0); Vitamin B12 1570 pg/mL (200-900)
== END 2023-01-16 06:40 | disposition home or self-care (01) ==
LOC: HO.LAB 06:39
PROVIDERS: PCP Internal Medicine; Visit Provider Internal Medicine
DX: R73.01 Impaired fasting glucose (principal); E78.00 Pure hypercholesterolemia, unspecified
CPT/HCPCS: 36415; 80053; 80061; 82607; 82746; 83036; 84153; 84439; 84443; 85025

== ENCOUNTER 2023-09-13 12:18 | Outpatient (AMB) | payer OTHER, SELFPAY ==
--- NOTE | 2023-09-13 12:38 | A.OFFPC_ITS ---
Vital Signs 09/13/23 12:40 Height 5 ft 7 in Weight 226 lb BMI 35.4 BP 138/72 Blood Pressure Location Lt brachial Position Sitting Pulse 65 Pulse Source Pulse Oximeter Pulse Oximetry (%) 97 Oxygen Delivery Method Room Air Intake Visit Reasons: Pain med follow up Intake Note: Patient is here to follow up on pain medication Allergies lisinopril Adverse Reaction (Intermediate, Verified 09/13/23 12:40) dryness of throat Medication List - Last Reconciled 09/13/23 by Arash Gerard MD albuterol sulfate 90 mcg/actuation (Ventolin HFA) 2 puffs inhalation Q6H PRN blood pressure monitor (Blood Pressure Kit) As directed budesonide-formoterol 80-4.5 mcg/actuation (Symbicort) 2 puffs inhalation BID 30 days cetirizine (Zyrtec) 10 mg PO DAILY PRN cyclobenzaprine 10 mg PO Q8H hydroxyzine HCl 25 mg PO BID PRN lidocaine 5% 1 patch topical NEEDED hejnlgyt-kzqyrtlko-YN 3.5-10,000-1 mg/mL-unit/mL-% 4 drps otic (ear) left Q8H 5 days oxycodone-acetaminophen 5-325 mg 1 tab PO Q6H PRN 28 days triamcinolone acetonide 0.5% 1 appl topical BID 14 days Tobacco use date assessed: 09/13/23 HPI Pain med follow up HPI Details 58-year-old obese male with a history of cervicalgia on narcotic pain medication impaired glucose tolerance last seen in January 2023. Noted 20 lb weight gain? ! Last blood work was in December 2022 with impaired glucose tolerance. [facility] Medical History (Updated 11/08/22 @ 16:59 by Arash Gerard MD) Blood pressure elevated without history of HTN Carpal tunnel syndrome of right wrist Tubular adenoma of colon Ulnar nerve entrapment Obesity (BMI 30-39.9) Asthma Cervicalgia Surgical History H/O hand surgery H/O shoulder surgery History of neck surgery Hx of colonoscopy Family History (Updated 12/18/22 @ 14:49 by Emelia Hallman CMA) Father Cancer Diabetes Hypertension Mother Hypertension CVD (cardiovascular disease) Social History Housing: Apartment Are you a primary childcare center administrator to a significant other at home: No Do you presently have visiting nurse or other home services: No Alcohol intake: never Patient Tobacco Use Status: Former Tobacco user Quit Date: 1994 Tobacco use type: Cigarette Years Smoked: 1994 e-Cigarette/Vaping Use: Never Used Second Hand Smoke Exposure: No service: No Current occupational status: disabled Cognitive needs: No Hearing needs: No Vision needs: No Questionnaire PHQ-9 Over the last 2 weeks, how often have you been bothered by any of the following problems? 1. Little interest or pleasure in doing things: not at all 2. Feeling down, depressed, or hopeless: not at all 3. Trouble falling or staying asleep, or sleeping too much: not at all 4. Feeling tired or having little energy: not at all 5. Poor appetite or overeating: not at all 6. Feeling bad about yourself - or that you are a failure or have let yourself or your family down: not at all 7. Trouble concentrating on things, such as reading the newspaper or watching television: not at all 8. Moving or speaking so slowly that other people could have noticed. Or the opposite - being so fidgety or restless that you have been moving around a lot more than usual: not at all 9. Thoughts that you would be better off or of hurting yourself in some way: not at all Total score: 0 Depression Screening Interpretation: Negative Depression Screening Done: Yes Source: Developed by Drs. Ze Lopez, Abel Minor and colleagues, with an educational reji from [employer]. Thrive Questionnaire Date Thrive assessed: 09/13/23 AUDIT C Alcohol Use Questionnaire (AUDIT-C) 1. How often do you have a drink containing alcohol?: Never 2. How many drinks containing alcohol do you have on a typical day when you are drinking?: 1 or 2 (0) 3. How often do you have six or more drinks on one occasion?: Never Total Score: 0 JAREN-7 AMB Questionnaire JAREN-7 Date JAREN - 7 assessed: 09/13/23 Source: Developed by Drs. Ze Lopez, Catrina Locke, Abel Fields and colleagues, with an educational reji from [employer]. Physical exam (Primary Care) Vital Signs: Last Vital Signs Pulse 65 09/13/23 12:40 BP 138/72 09/13/23 12:40 Pulse Ox 97 09/13/23 12:40 Oxygen Delivery Method Room Air 09/13/23 12:40 BMI result Body Mass Index 35.4 Tobacco/Smoking Status: Tobacco use Status Tobacco use date assessed 09/13/23 09/13/23 12:40 Patient Tobacco Use Status Former Tobacco user 09/13/23 12:39 Tobacco use type Cigarette 09/13/23 12:39 e-Cigarette/Vaping Use Never Used 09/13/23 12:39 PHQ-9: PHQ-9 Score PHQ-9: Total score 0 09/13/23 12:40 Depression Screening Interpretation: Negative Thrive Assessment: Date of Thrive Assessment Date Thrive assessed 09/13/23 09/13/23 12:40 Const General: alert; No acute distress Eyes Conjunctivae: conjunctivae normal Resp Auscultation: clear to auscultation bilaterally Cardio Rate: regular rate Rhythm: regular rhythm GI Inspection: Yes normal to inspection Extrem General: Yes normal to inspection and No edema Assessment and Plan Assessment & Plan (1) Cervicalgia: Comment: degenerative joint disease status post fusion Code(s): M54.2 - Cervicalgia Plan: Narcotic pain meds: Is being prescribed with the understanding that these medications are potentially addictive and should be used only when absolutely necessary and must always be secured. Any remaining pills should be safely disposed off appropriately. Patient is advised that narcotics can impaired judgment and one should not drive or operate heavy machinery while taking these medications. Never share these medications with anybody and do not leave them unattended. They will not be replaced under any circumstances. (2) Obesity (BMI 30-39.9): Code(s): E66.9 - Obesity, unspecified Plan: Diet and exercise (3) Impaired fasting blood sugar: Code(s): R73.01 - Impaired fasting glucose Plan: Decrease the amount of carbohydrate intake, pasta, bread, rice and potatoes are all sugar and that is aside from all the sweet stuff, remember that fruits are good but they are Sweet also. (4) Tubular adenoma of colon: Comment: June 2019 Code(s): D12.6 - Benign neoplasm of colon, unspecified Orders: Orders Hemoglobin A1c Today R73.01 - Impaired fasting glucose Thyroid Stimulating Hormone Today R73.01 - Impaired fasting glucose Free T4 (Free Thyroxine) Today R73.01 - Impaired fasting glucose Comprehensive Met. Panel Today R73.01 - Impaired fasting glucose Complete Blood Count Auto Diff Today R73.01 - Impaired fasting glucose Lipid Panel Today E78.00 - Pure hypercholesterolemia, unspecified, R73.01 - Impaired fasting glucose Referrals Gastroenterology Referral D12.6 - Benign neoplasm of colon, unspecified Medications: Refilled budesonide-formoterol 80-4.5 mcg/actuation (Symbicort) 2 puffs inhalation BID 30 days 10.2 grams 5RF R73.01 - Impaired fasting glucose Coding Level of Care Code Est Pt Level 4 (67538) Diagnoses Cervicalgia M54.2 Obesity (BMI 30-39.9) E66.9 Impaired fasting blood sugar R73.01 Tubular adenoma of colon D12.6
[2023-09-13 12:40] VITALS: BP 138/72; PULSE 65; O2SAT 97; BMI 35.4
== END 2023-09-13 13:07 | disposition home or self-care (01) ==
PROVIDERS: PCP Internal Medicine; Visit Provider Internal Medicine
DX: M54.2 Cervicalgia (principal); E66.9 Obesity, unspecified; Z68.35 Body mass index [BMI] 35.0-35.9, adult; R73.01 Impaired fasting glucose; D12.6 Benign neoplasm of colon, unspecified
CPT/HCPCS: 99214

== ENCOUNTER 2023-10-14 14:34 | Outpatient (AMB) | payer OTHER, SELFPAY ==
[2023-10-14 14:43] VITALS: BP 132/68; PULSE 80; O2SAT 98; BMI 35.1
--- NOTE | 2023-10-14 14:43 | MHC.PC.OV ---
Vital Signs 10/14/23 14:43 Height 5 ft 7 in Weight 224 lb 0.2 oz BMI 35.1 BP 132/68 Blood Pressure Location Lt brachial Position Sitting Pulse 80 Pulse Source Pulse Oximeter Pulse Oximetry (%) 98 Oxygen Delivery Method Room Air Intake Visit Reasons: Pain Med Follow UP Intake Note: Patient is here to follow up on pain medication Electroplating Sales Representative Required: No Allergies lisinopril Adverse Reaction (Intermediate, Verified 10/14/23 14:43) dryness of throat Tobacco use date assessed: 10/14/23 Dental Screening Dental Screen Date: 10/14/23 Did you have a dental visit in the last 12 months?: Yes Did you have a dental problem in the last 6 months where you did not have access to dental care?: No Was dental information given to patient?: Patient has dentist HPI Pain Med Follow UP HPI Details 58-year-old obese male with cervicalgia on narcotic pain medication seen on a monthly basis for refill has a history of obesity impaired glucose tolerance has a history of tubular adenoma also last seen in August 2023. Patient complains of some neck pain and feels that he has not able to move it. Discussed that his procedure was fusion yes it is to resist movement of the cervical spine. Will do x-rays to follow-up and heating pads should help patient also has muscle relaxants. [facility] Medical History (Updated 11/08/22 @ 16:59 by Arash Gerard MD) Blood pressure elevated without history of HTN Carpal tunnel syndrome of right wrist Tubular adenoma of colon Ulnar nerve entrapment Obesity (BMI 30-39.9) Asthma Cervicalgia Surgical History H/O hand surgery H/O shoulder surgery History of neck surgery Hx of colonoscopy Family History (Updated 12/18/22 @ 14:49 by Emelia Hallman CMA) Father Cancer Diabetes Hypertension Mother Hypertension CVD (cardiovascular disease) Social History Housing: Apartment Are you a primary care transitions nurse to a significant other at home: No Do you presently have visiting nurse or other home services: No Alcohol intake: never Patient Tobacco Use Status: Former Tobacco user Quit Date: 1994 Tobacco use type: Cigarette Years Smoked: 1994 e-Cigarette/Vaping Use: Never Used Second Hand Smoke Exposure: No service: No Current occupational status: disabled Cognitive needs: No Hearing needs: No Vision needs: No Questionnaire Thrive Questionnaire Date Thrive assessed: 09/13/23 AUDIT C Alcohol Use Questionnaire (AUDIT-C) 1. How often do you have a drink containing alcohol?: Never 2. How many drinks containing alcohol do you have on a typical day when you are drinking?: 1 or 2 (0) 3. How often do you have six or more drinks on one occasion?: Never Total Score: 0 JAREN-7 AMB Questionnaire JAREN-7 Date JAREN - 7 assessed: 09/13/23 Source: Developed by Drs. Ze Lopez, Catrina Locke, Abel Fields and colleagues, with an educational reji from [employer]. Physical exam (Primary Care) Vital Signs: Last Vital Signs Pulse 80 10/14/23 14:43 BP 132/68 10/14/23 14:43 Pulse Ox 98 10/14/23 14:43 Oxygen Delivery Method Room Air 10/14/23 14:43 BMI result Body Mass Index 35.1 Tobacco/Smoking Status: Tobacco use Status Tobacco use date assessed 10/14/23 10/14/23 14:44 Patient Tobacco Use Status Former Tobacco user 10/14/23 14:44 Tobacco use type Cigarette 10/14/23 14:44 e-Cigarette/Vaping Use Never Used 10/14/23 14:44 Thrive Assessment: Date of Thrive Assessment Date Thrive assessed 09/13/23 10/14/23 14:44 Const General: alert; No acute distress Eyes Conjunctivae: conjunctivae normal Resp Auscultation: clear to auscultation bilaterally Cardio Rate: regular rate Rhythm: regular rhythm GI Inspection: Yes normal to inspection Extrem General: Yes normal to inspection and No edema Assessment and Plan Assessment & Plan (1) Cervicalgia: Comment: degenerative joint disease status post fusion Code(s): M54.2 - Cervicalgia Plan: Narcotic pain meds: Is being prescribed with the understanding that these medications are potentially addictive and should be used only when absolutely necessary and must always be secured. Any remaining pills should be safely disposed off appropriately. Patient is advised that narcotics can impaired judgment and one should not drive or operate heavy machinery while taking these medications. Never share these medications with anybody and do not leave them unattended. They will not be replaced under any circumstances. Advised to get a neck x-ray to follow-up. (2) Obesity (BMI 30-39.9): Code(s): E66.9 - Obesity, unspecified Plan: Diet and exercise (3) Tubular adenoma of colon: Comment: June 2019 Code(s): D12.6 - Benign neoplasm of colon, unspecified Plan: Patient is due for colonoscopy this year (4) Impaired fasting blood sugar: Code(s): R73.01 - Impaired fasting glucose Plan: Decrease the amount of carbohydrate intake, pasta, bread, rice and potatoes are all sugar and that is aside from all the sweet stuff, remember that fruits are good but they are Sweet also. Medications: Refilled oxycodone-acetaminophen 5-325 mg 1 tab PO Q6H 28 days PRN 112 tabs 0RF pain M54.2 - Cervicalgia Coding Level of Care Code Est Pt Level 4 (07573) Diagnoses Cervicalgia M54.2 Obesity (BMI 30-39.9) E66.9 Tubular adenoma of colon D12.6 Impaired fasting blood sugar R73.01
== END 2023-10-14 15:09 | disposition home or self-care (01) ==
PROVIDERS: PCP Internal Medicine; Visit Provider Internal Medicine
DX: M54.2 Cervicalgia (principal); E66.9 Obesity, unspecified; D12.6 Benign neoplasm of colon, unspecified; Z68.35 Body mass index [BMI] 35.0-35.9, adult; R73.01 Impaired fasting glucose
CPT/HCPCS: 99214

== ENCOUNTER 2023-10-15 07:09 | Outpatient (REF) | payer OTHER, SELFPAY ==
[2023-10-15 07:22] LABS: MANUAL DIFF FLAG NO
[2023-10-15 07:44] LABS: Basophils Absolute Auto 0.1 X10*3/uL (0.0-0.2); Basophils Percent Auto 0.7 % (0-2); Eosinophils Absolute Auto 0.2 X10*3/uL (0.0-0.4); Eosinophils Percent Auto 2.7 % (0-4); Hematocrit 41.5 % (42.0-52.0); Hemoglobin 13.5 g/dl (14.0-18.0); Imm Gran Abs Auto 0.01 X10*3/uL (0.00-0.03); Imm Gran Pct Auto 0.1 % (0.0-0.4); Lymphocytes Absolute Auto 2.5 X10*3/uL (1.2-4.9); Lymphocytes Percent Auto 30.1 % (20-40); Mean Corpuscular HGB Conc 32.5 g/dl (31.0-36.0); Mean Corpuscular Hemoglobin 26.8 pg (27.0-33.0); Mean Corpuscular Volume 82.5 fL (80.0-98.0); Mean Platelet Volume 9.2 fL (9.4-12.4); Monocytes Absolute Auto 0.9 X10*3/uL (0.1-1.2); Monocytes Percent Auto 10.2 % (2-11); Neutrophils Absolute Auto 4.7 x10*3/uL (2.0-8.3); Neutrophils Percent Auto 56.2 % (45-73); Platelet Count 253 X10*3/uL (160-400); Red Blood Count 5.03 X10*6/uL (4.60-5.80); Red Cell Distribution Width 14.7 % (11.0-16.0); White Blood Count 8.4 X10*3/uL (4.8-10.8)
[2023-10-15 08:16] LABS: Alanine Aminotransferase 22 U/L (0-40); Albumin Level 4.3 g/dL (3.5-5.0); Alkaline Phosphatase 48 U/L (39-117); Anion Gap 9 (12-20); Aspartate Amino Transferase 23 U/L (5-37); Bilirubin Total 0.4 mg/dL (0.0-1.0); Blood Urea Nitrogen 18 mg/dL (9-16); Calcium 9.4 mg/dL (8.4-10.2); Carbon Dioxide 27 mmol/L (22-29); Chloride 106 mmol/L (96-108); Cholesterol 167 mg/dL (<200); Estimated Glomerular Filt Rate > 60; Glucose Random 110 mg/dL (60-115); HDL Cholesterol 65 mg/dL (>40); LDL Cholesterol Calculated 91 mg/dL (<100); Potassium 4.3 mmol/L (3.3-5.1); Sodium 138 mmol/L (135-145); Total Protein 7.5 g/dL (6.5-8.0); Triglycerides 58 mg/dL (<150)
[2023-10-15 08:35] LABS: Free T4 (Free Thyroxine) 0.84 ng/dL (0.71-1.85); Thyroid Stimulating Hormone 1.07 uIU/mL (0.32-4.0)
[2023-10-15 08:43] LABS: Estimated Average Glucose 126 mg/dL
== END 2023-10-15 07:10 | disposition home or self-care (01) ==
LOC: HO.LAB 07:09
PROVIDERS: PCP Internal Medicine; Visit Provider Internal Medicine
DX: R73.01 Impaired fasting glucose (principal); E78.00 Pure hypercholesterolemia, unspecified
CPT/HCPCS: 36415; 80053; 80061; 83036; 84439; 84443; 85025

== ENCOUNTER 2023-11-12 14:08 | Outpatient (AMB) | payer OTHER, SELFPAY ==
[2023-11-12 14:10] VITALS: BP 148/70; PULSE 74; O2SAT 98; BMI 34.6
--- NOTE | 2023-11-12 14:10 | A.OFFPC_ITS ---
Vital Signs 11/12/23 14:10 11/12/23 14:35 Height 5 ft 7 in Weight 221 lb 0.6 oz BMI 34.6 BP 148/70 H 128/70 Blood Pressure Location Lt brachial Lt brachial Position Sitting Sitting Pulse 74 Pulse Source Pulse Oximeter Pulse Oximetry (%) 98 Oxygen Delivery Method Room Air Intake Visit Reasons: Pain Med Follow Up Intake Note: Patient is here to follow up on medication follow up Range Examiner Required: No Allergies lisinopril Adverse Reaction (Intermediate, Verified 11/12/23 14:14) dryness of throat Medication List - Last Reconciled 11/12/23 by Arash Gerard MD albuterol sulfate 90 mcg/actuation (Ventolin HFA) 2 puffs inhalation Q6H PRN blood pressure monitor (Blood Pressure Kit) As directed budesonide-formoterol 80-4.5 mcg/actuation (Symbicort) 2 puffs inhalation BID 30 days cetirizine (Zyrtec) 10 mg PO DAILY PRN cyclobenzaprine 10 mg PO Q8H hydroxyzine HCl 25 mg PO BID PRN lidocaine 5% 1 patch topical NEEDED oxycodone-acetaminophen 5-325 mg 1 tab PO Q6H PRN 28 days triamcinolone acetonide 0.5% 1 appl topical BID 14 days Tobacco use date assessed: 11/12/23 HPI Pain Med Follow Up HPI Details 58-year-old obese male with a history of impaired glucose tolerance cervicalgia on narcotic pain medication asthma impaired glucose tolerance hypertension coming in for follow-up last seen in September 2023. Patient's colon test was done in 2018. Noted mild anemia September 2023 last blood work. [facility] Medical History (Updated 11/08/22 @ 16:59 by Arash Gerard MD) Blood pressure elevated without history of HTN Carpal tunnel syndrome of right wrist Tubular adenoma of colon Ulnar nerve entrapment Obesity (BMI 30-39.9) Asthma Cervicalgia Surgical History H/O hand surgery H/O shoulder surgery History of neck surgery Hx of colonoscopy Family History (Updated 12/18/22 @ 14:49 by Emelia Hallman CMA) Father Cancer Diabetes Hypertension Mother Hypertension CVD (cardiovascular disease) Social History Housing: Apartment Are you a primary home care administrator to a significant other at home: No Do you presently have visiting nurse or other home services: No Alcohol intake: never Patient Tobacco Use Status: Former Tobacco user Quit Date: 1994 Tobacco use type: Cigarette Years Smoked: 1994 e-Cigarette/Vaping Use: Never Used Second Hand Smoke Exposure: No service: No Current occupational status: disabled Cognitive needs: No Hearing needs: No Vision needs: No Questionnaire Thrive Questionnaire Date Thrive assessed: 09/13/23 AUDIT C Alcohol Use Questionnaire (AUDIT-C) 1. How often do you have a drink containing alcohol?: Never 2. How many drinks containing alcohol do you have on a typical day when you are drinking?: 1 or 2 (0) 3. How often do you have six or more drinks on one occasion?: Never Total Score: 0 JAREN-7 AMB Questionnaire JAREN-7 Date JAREN - 7 assessed: 09/13/23 Source: Developed by Drs. Ze Lopez, Catrina Locke, Abel Fields and colleagues, with an educational reji from [employer]. Physical exam (Primary Care) Vital Signs: Last Vital Signs Pulse 74 11/12/23 14:10 BP 148/70 H 11/12/23 14:10 Pulse Ox 98 11/12/23 14:10 Oxygen Delivery Method Room Air 11/12/23 14:10 BMI result Body Mass Index 34.6 Tobacco/Smoking Status: Tobacco use Status Tobacco use date assessed 11/12/23 11/12/23 14:11 Patient Tobacco Use Status Former Tobacco user 11/12/23 14:11 Tobacco use type Cigarette 11/12/23 14:11 e-Cigarette/Vaping Use Never Used 11/12/23 14:11 Thrive Assessment: Date of Thrive Assessment Date Thrive assessed 09/13/23 11/12/23 14:11 Const General: alert; No acute distress Eyes Conjunctivae: conjunctivae normal Resp Auscultation: clear to auscultation bilaterally Cardio Rate: regular rate Rhythm: regular rhythm GI Inspection: Yes normal to inspection Extrem General: Yes normal to inspection and No edema Assessment and Plan Assessment & Plan (1) Anemia of chronic disease: Code(s): D63.8 - Anemia in other chronic diseases classified elsewhere Plan: Continue to monitor blood count (2) Hypertension: Comment: Good BP at home. Code(s): I10 - Essential (primary) hypertension Plan: Continue with blood pressure medication. Decrease salt intake and exercise patient states blood pressure at home has been controlled patient is not on any blood pressure medication. (3) Impaired fasting blood sugar: Code(s): R73.01 - Impaired fasting glucose Plan: Decrease the amount of carbohydrate intake, pasta, bread, rice and potatoes are all sugar and that is aside from all the sweet stuff, remember that fruits are good but they are Sweet also. (4) Tubular adenoma of colon: Comment: June 2019 Code(s): D12.6 - Benign neoplasm of colon, unspecified Plan: Reminded about colonoscopy this year, referral has been done (5) Cervicalgia: Comment: degenerative joint disease status post fusion Code(s): M54.2 - Cervicalgia Plan: Narcotic pain meds: Is being prescribed with the understanding that these medications are potentially addictive and should be used only when absolutely necessary and must always be secured. Any remaining pills should be safely disposed off appropriately. Patient is advised that narcotics can impaired judgment and one should not drive or operate heavy machinery while taking these medications. Never share these medications with anybody and do not leave them unattended. They will not be replaced under any circumstances. X-ray requested of the neck Orders: Orders XR cervical spine 2V Today M54.2 - Cervicalgia Medications: Refilled oxycodone-acetaminophen 5-325 mg 1 tab PO Q6H PRN 112 tabs 0RF pain 28 days M54.2 - Cervicalgia Discontinued mfdoteoj-jxyjdksdl-OH 3.5-10,000-1 mg/mL-unit/mL-% Discontinued Reason: Patient Completed Course 4 drps otic (ear) left Q8H 10 mL 0RF 5 days H61.22 - Impacted cerumen, left ear Coding Level of Care Code Est Pt Level 4 (24515) Diagnoses Anemia of chronic disease D63.8 Hypertension I10 Impaired fasting blood sugar R73.01 Tubular adenoma of colon D12.6 Cervicalgia M54.2
[2023-11-12 14:35] VITALS: BP 128/70
== END 2023-11-12 14:43 | disposition home or self-care (01) ==
PROVIDERS: PCP Internal Medicine; Visit Provider Internal Medicine
DX: I10 Essential (primary) hypertension (principal); R73.01 Impaired fasting glucose; D63.8 Anemia in other chronic diseases classified elsewhere; D12.6 Benign neoplasm of colon, unspecified; M54.2 Cervicalgia
CPT/HCPCS: 99214

== ENCOUNTER 2023-12-13 07:27 | Outpatient (REF) | payer OTHER, SELFPAY ==
--- NOTE | ~2023-12-13 | XR_ITS ---
EXAMINATION: XR CERVICAL SPINE CLINICAL INFORMATION: Neck pain and limited range of motion Cervicalgia COMPARISON: Cervical spine 08/15/2017 TECHNIQUE: 4 views of the cervical spine were obtained. FINDINGS: The odontoid is obscured on the open-mouth view. There is no fracture or subluxation. Prevertebral soft tissues are within normal limits. There is straightening of the usual cervical lordosis which can be seen with muscle spasm or be due to patient positioning. There is fusion of the C5 and C6 vertebral bodies as previously seen. There is mild disc space narrowing with marginal osteophyte formation at C3-C4, C4-C5 and and C6-C7. Multilevel endplate osteophytes are noted. The lung apices are clear. Multilevel degenerative facet joint disease. XR/XR cervical spine 2V IMPRESSION: 1. Straightening of the usual cervical lordosis which can be seen with muscle spasm or be due to patient positioning. 2. Bony fusion of the C5 and C6 vertebral bodies. 3. Multilevel degenerative disc disease
== END 2023-12-13 07:28 | disposition home or self-care (01) ==
LOC: HO.XRAY 07:27
PROVIDERS: PCP Internal Medicine; Visit Provider Internal Medicine
DX: M54.2 Cervicalgia (principal)
CPT/HCPCS: 72040

== ENCOUNTER 2023-12-13 14:49 | Outpatient (AMB) | payer OTHER, SELFPAY ==
--- NOTE | 2023-12-13 15:00 | A.OFFPC_ITS ---
Vital Signs 12/13/23 15:02 Height 5 ft 7 in Weight 226 lb BMI 35.4 BP 114/62 Blood Pressure Location Lt brachial Position Sitting Pulse 71 Pulse Source Pulse Oximeter Pulse Oximetry (%) 97 Oxygen Delivery Method Room Air Intake Visit Reasons: Pain Med Follow Up Intake Note: Patient is here to follow up on pain med. Ends Down Checker Required: Yes Ends Down Checker Language: Center Human Resources Manager Name: Myrna (niece) Information Interpreted: non-clinical & clinical Employee Training Specialist: Present Accompanied by: Nephew or Niece Allergies lisinopril Adverse Reaction (Intermediate, Verified 12/13/23 15:02) dryness of throat Tobacco use date assessed: 12/13/23 Dental Screening Dental Screen Date: 10/14/23 HPI Pain Med Follow Up HPI Details 58-year-old obese male with a history of anemia of chronic disease hypertension impaired glucose tolerance cervicalgia on narcotic pain medication refill. Patient has history of tubular adenoma and is due for colonoscopy. [facility] Medical History (Updated 11/08/22 @ 16:59 by Arash Gerard MD) Blood pressure elevated without history of HTN Carpal tunnel syndrome of right wrist Tubular adenoma of colon Ulnar nerve entrapment Obesity (BMI 30-39.9) Asthma Cervicalgia Surgical History H/O shoulder surgery H/O hand surgery Hx of colonoscopy History of neck surgery Family History Father Cancer Diabetes Hypertension Mother Hypertension CVD (cardiovascular disease) Social History Housing: Apartment Are you a primary career center director to a significant other at home: No Do you presently have visiting nurse or other home services: No Alcohol intake: never Patient Tobacco Use Status: Former Tobacco user Quit Date: 1994 Tobacco use type: Cigarette Years Smoked: 1994 e-Cigarette/Vaping Use: Never Used Second Hand Smoke Exposure: No service: No Current occupational status: disabled Cognitive needs: No Hearing needs: No Vision needs: No Questionnaire Thrive Questionnaire Date Thrive assessed: 09/13/23 JAREN-7 AMB Questionnaire JAREN-7 Date JAREN - 7 assessed: 09/13/23 Source: Developed by Drs. Ze L. JohnCatrina oliveros, Abel Fields and colleagues, with an educational reji from [employer]. Physical exam (Primary Care) Vital Signs: Last Vital Signs Pulse 71 12/13/23 15:02 BP 114/62 12/13/23 15:02 Pulse Ox 97 12/13/23 15:02 Oxygen Delivery Method Room Air 12/13/23 15:02 BMI result Body Mass Index 35.4 Tobacco/Smoking Status: Tobacco use Status Tobacco use date assessed 12/13/23 12/13/23 15:09 Patient Tobacco Use Status Former Tobacco user 12/13/23 15:09 Tobacco use type Cigarette 12/13/23 15:09 e-Cigarette/Vaping Use Never Used 12/13/23 15:09 Thrive Assessment: Date of Thrive Assessment Date Thrive assessed 09/13/23 12/13/23 15:09 Const General: alert; No acute distress Eyes Conjunctivae: conjunctivae normal Resp Auscultation: clear to auscultation bilaterally Cardio Rate: regular rate Rhythm: regular rhythm GI Inspection: Yes normal to inspection Extrem General: Yes normal to inspection and No edema Assessment and Plan Assessment & Plan (1) Obesity (BMI 30-39.9): Code(s): E66.9 - Obesity, unspecified Plan: Diet and exercise (2) Tubular adenoma of colon: Comment: June 2019 Code(s): D12.6 - Benign neoplasm of colon, unspecified Plan: Patient is reminded about colon cancer screening as the patient has tubular adenoma. (3) Cervicalgia: Comment: degenerative joint disease status post fusion Code(s): M54.2 - Cervicalgia Plan: Narcotic pain meds: Is being prescribed with the understanding that these medications are potentially addictive and should be used only when absolutely necessary and must always be secured. Any remaining pills should be safely disposed off appropriately. Patient is advised that narcotics can impaired ju dgment and one should not drive or operate heavy machinery while taking these medications. Never share these medications with anybody and do not leave them unattended. They will not be replaced under any circumstances. Medications: Refilled oxycodone-acetaminophen 5-325 mg 1 tab PO Q6H 28 days PRN 112 tabs 0RF pain M54.2 - Cervicalgia Coding Level of Care Code Est Pt Level 4 (85072) Diagnoses Obesity (BMI 30-39.9) E66.9 Tubular adenoma of colon D12.6 Cervicalgia M54.2
[2023-12-13 15:02] VITALS: BP 114/62; PULSE 71; O2SAT 97; BMI 35.4
== END 2023-12-13 15:52 | disposition home or self-care (01) ==
PROVIDERS: PCP Internal Medicine; Visit Provider Internal Medicine
DX: D12.6 Benign neoplasm of colon, unspecified (principal); E66.9 Obesity, unspecified; M54.2 Cervicalgia; Z68.34 Body mass index [BMI] 34.0-34.9, adult
CPT/HCPCS: 99214

== ENCOUNTER 2024-01-10 11:51 | Outpatient (AMB) | payer OTHER, SELFPAY ==
[2024-01-10 11:52] VITALS: BP 112/72; PULSE 73; O2SAT 96; BMI 35.5
--- NOTE | 2024-01-10 11:52 | A.OFFPC_ITS ---
Vital Signs 01/10/24 11:52 Height 5 ft 7 in Weight 227 lb BMI 35.5 BP 112/72 Blood Pressure Location Lt brachial Position Sitting Pulse 73 Pulse Source Pulse Oximeter Pulse Oximetry (%) 96 Oxygen Delivery Method Room Air Intake Visit Reasons: Med follow up Watch Engine Operator Required: No Allergies lisinopril Adverse Reaction (Intermediate, Verified 01/10/24 11:53) dryness of throat Tobacco use date assessed: 01/10/24 Dental Screening Dental Screen Date: 10/14/23 HPI Med follow up HPI Details 58-year-old obese male with cervicalgia on narcotic pain medication coming in for follow-up. Has a history of tubular adenoma and advised to get repeat colonoscopy patient has a history of asthma impaired glucose tolerance hypertension. [facility] Medical History (Updated 11/08/22 @ 16:59 by Arash Gerard MD) Blood pressure elevated without history of HTN Carpal tunnel syndrome of right wrist Tubular adenoma of colon Ulnar nerve entrapment Obesity (BMI 30-39.9) Asthma Cervicalgia Surgical History H/O shoulder surgery H/O hand surgery Hx of colonoscopy History of neck surgery Family History Father Cancer Diabetes Hypertension Mother Hypertension CVD (cardiovascular disease) Social History Housing: Apartment Are you a primary critical care educator to a significant other at home: No Do you presently have visiting nurse or other home services: No Alcohol intake: never Patient Tobacco Use Status: Former Tobacco user Quit Date: 1994 Tobacco use type: Cigarette Years Smoked: 1994 e-Cigarette/Vaping Use: Never Used Second Hand Smoke Exposure: No service: No Current occupational status: disabled Cognitive needs: No Hearing needs: No Vision needs: No Questionnaire Thrive Questionnaire Date Thrive assessed: 09/13/23 AUDIT C Alcohol Use Questionnaire (AUDIT-C) 1. How often do you have a drink containing alcohol?: Never 2. How many drinks containing alcohol do you have on a typical day when you are drinking?: 1 or 2 (0) 3. How often do you have six or more drinks on one occasion?: Never Total Score: 0 JAREN-7 AMB Questionnaire JAREN-7 Date JAREN - 7 assessed: 09/13/23 Source: Developed by Drs. Ze Lopez, Catrina Locke, Abel Fields and colleagues, with an educational reji from [employer]. Physical exam (Primary Care) Vital Signs: Last Vital Signs Pulse 73 01/10/24 11:52 BP 112/72 01/10/24 11:52 Pulse Ox 96 01/10/24 11:52 Oxygen Delivery Method Room Air 01/10/24 11:52 BMI result Body Mass Index 35.5 Tobacco/Smoking Status: Tobacco use Status Tobacco use date assessed 01/10/24 01/10/24 11:57 Patient Tobacco Use Status Former Tobacco user 01/10/24 11:57 Tobacco use type Cigarette 01/10/24 11:57 e-Cigarette/Vaping Use Never Used 01/10/24 11:57 Thrive Assessment: Date of Thrive Assessment Date Thrive assessed 09/13/23 01/10/24 11:57 Const General: alert; No acute distress Eyes Conjunctivae: conjunctivae normal Resp Auscultation: clear to auscultation bilaterally Cardio Rate: regular rate Rhythm: regular rhythm GI Inspection: Yes normal to inspection Extrem General: Yes normal to inspection and No edema Assessment and Plan Assessment & Plan (1) Cervicalgia: Comment: degenerative joint disease status post fusion Code(s): M54.2 - Cervicalgia Plan: Narcotic pain meds: Is being prescribed with the understanding that these medications are potentially addictive and should be used only when absolutely necessary and must always be secured. Any remaining pills should be safely disposed off appropriately. Patient is advised that narcotics can impaired judgment and one should not drive or operate heavy machinery while taking these medications. Never share these medications with anybody and do not leave them unattended. They will not be replaced under any circumstances. PAtient is asking for additional treatment as he still has pain . (2) Obesity (BMI 30-39.9): Code(s): E66.9 - Obesity, unspecified Plan: Diet and exercise (3) Impaired fasting blood sugar: Code(s): R73.01 - Impaired fasting glucose Plan: Decrease the amount of carbohydrate intake, pasta, bread, rice and potatoes are all sugar and that is aside from all the sweet stuff, remember that fruits are good but they are Sweet also. Will request for blood work (4) Tubular adenoma of colon: Comment: June 2019 Code(s): D12.6 - Benign neoplasm of colon, unspecified Plan: awaiting GI for schedule for colon test Orders: Orders Lipid Panel Today E78.00 - Pure hypercholesterolemia, unspecified, R73.01 - Impaired fasting glucose Complete Blood Count Auto Diff Today R73.01 - Impaired fasting glucose Vitamin B12 and Folate Today R73.01 - Impaired fasting glucose Hemoglobin A1c Today R73.01 - Impaired fasting glucose Comprehensive Met. Panel Today R73.01 - Impaired fasting glucose Reticulocyte Count Today R73.01 - Impaired fasting glucose IRON PROFILE Today R73.01 - Impaired fasting glucose Referrals Pain Management Referral M54.2 - Cervicalgia Medications: Refilled oxycodone-acetaminophen 5-325 mg 1 tab PO Q6H 28 days PRN 112 tabs 0RF pain M54.2 - Cervicalgia Coding Level of Care Code Est Pt Level 4 (44516) Diagnoses Cervicalgia M54.2 Obesity (BMI 30-39.9) E66.9 Impaired fasting blood sugar R73.01 Tubular adenoma of colon D12.6
== END 2024-01-10 15:02 | disposition home or self-care (01) ==
LOC: HO.HMGH 11:51
PROVIDERS: PCP Internal Medicine; Visit Provider Internal Medicine
DX: M54.2 Cervicalgia (principal); R73.01 Impaired fasting glucose; Z86.010 Personal history of colon polyps; J45.20 Mild intermittent asthma, uncomplicated
CPT/HCPCS: 99214

== ENCOUNTER 2024-01-29 09:18 | Outpatient (AMB) | payer OTHER, SELFPAY ==
--- NOTE | 2024-01-29 09:24 | MHC.OFFVIS ---
Vital Signs 01/29/24 09:33 Height 5 ft 7 in Weight 215 lb BMI 33.7 BP 146/62 H Blood Pressure Location Rt radial Position Sitting Respiration 16 Pulse 71 Pulse Source Pulse Oximeter Pulse Oximetry (%) 99 Oxygen Delivery Method Room Air Intake Visit Reasons: Cervicalgia Intake Note: Patient comes in for initial visit was referred by primary care. He was accompanied by?his niece Stephanie. Reports pain 05/28. Accompanied by: Nephew or Niece Allergies lisinopril Adverse Reaction (Intermediate, Verified 01/29/24 09:32) dryness of throat HPI Comments Details: Rickie is very pleasant 58 years old gentleman who presents in my office with his daughter who is fluent in both Yi and Serbian and help us to maintain this conversation. He reports pain in the neck and pain in the left shoulder joint remote pain in lower back. The appointment today concentrated on the pain on the neck because patient was more interested in alleviation that pain. The patient reports that he had surgery on his neck in [address] Hernandez. Unfortunately we will not be able to obtain the records from that doctor's office, it is permanently closed. He reports he sleeps okay after he is taking his opioid medications oxycodone, he does some of his activities of daily living, he can not take care of himself he can not function normally in some of the circumstances. He is on permanent disability because of the pain in the neck. Say he is self mobile. He tried multiple medications for the pain in the neck including topical cold topical heat and topical medications. He reports his pain in terms of tissue damage as pulsing, throbbing, pounding, jumping, flushing, shooting, stabbing, lancinating, sharp, lacerating, pinching, crushing. We have x-ray available in the chart results of which dictated as below. He had physical therapy for his neck pain many years ago he reported exacerbation of the pain secondary to physical therapy. He received multiple steroid injections in his neck. Those injections were performed in [place]. He does not know the name of the practitioner however after many years of injections this practitioner told him that because of potential osteoporosis he should avoid steroid injections in the neck. He has past medical history of asthma and he has urticaria skin condition. His past surgical history described as above next surgery and shoulder surgery, social history he is retired and disabled individual he denies smoking cigarettes denies drinking alcohol drinks coffee but not soda and denies recreational drugs. [facility] Medical History (Updated 01/29/24 @ 09:56 by Ezra Luna MD) Blood pressure elevated without history of HTN Carpal tunnel syndrome of right wrist Tubular adenoma of colon Ulnar nerve entrapment Obesity (BMI 30-39.9) Asthma Cervicalgia Surgical History H/O shoulder surgery H/O hand surgery Hx of colonoscopy History of neck surgery Family History Father Cancer Diabetes Hypertension Mother Hypertension CVD (cardiovascular disease) Social History Housing: Apartment Are you a primary gericare aide teacher to a significant other at home: No Do you presently have visiting nurse or other home services: No Alcohol intake: never Patient Tobacco Use Status: Former Tobacco user Tobacco use type: Cigarette Years Smoked: 1994 e-Cigarette/Vaping Use: Never Used Second Hand Smoke Exposure: No service: No Current occupational status: disabled Cognitive needs: No Hearing needs: No Vision needs: No Review of Systems Const Denies poor appetite and Denies weakness Eyes Denies no additional complaints ENT Reports Normal hearing present, Denies dizziness, Denies nasal congestion, Denies tinnitus and Denies sore throat Card Denies chest pain, Denies syncope, Denies rapid heart rate and Denies dyspnea Resp Denies cough and Denies dyspnea GI Denies change in stool character, Reports constipation, Denies diarrhea, Denies nausea and Denies vomiting Denies dysuria and Denies urinary frequency Neuro Reports Normal hearing present, Denies dizziness, Denies syncope and Denies weakness Physical Exam Vital Signs: Last Vital Signs Pulse 71 01/29/24 09:33 Resp 16 01/29/24 09:33 BP 146/62 H 01/29/24 09:33 Pulse Ox 99 01/29/24 09:33 Oxygen Delivery Method Room Air 01/29/24 09:33 BMI result Body Mass Index 33.7 Const General: comfortable and no acute distress Nutritional Appearance: average body habitus and well nourished Orientation/consciousness: patient oriented x3 Neck Other: On inspection patient tends to keep his head slightly turned to the left side avoiding tension in the left side of the neck. Tenderness on palpation in paraspinal spinal region of the cervical spine most tender spot approximately in the projection of C4-C5 vertebral bodies. All motions of the cervical spine are very painful for the patient. Spurling test is negative bilaterally, axial compression on the head reveals pain in the projection of the midcervical spine, however this pain does not radiate down the spine therefore Lhermitte is negative. Normal strength and sensation of bilateral upper extremities. Tenderness on palpation in the projection of the left shoulder. See as below. Resp Effort & Inspection: normal respiratory effort, able to speak in complete sentences, normal respiratory pattern, no audible wheezes and no cough Cardio Jugular venous distension: no JVD GI Inspection: Yes normal to inspection Neuro General: patient oriented x3 Cranial nerves: Yes Normal hearing present Extrem Other: Left shoulder normal to inspection.? No ecchymosis, redness or edema.? Prior incision sites are well approximated and healed.? Patient is able to demonstrate forward flexion to 110 degrees.? Abduction to 90 degrees.? Sensation intact.? Radial pulse intact. Results Reviewed Results Reviewed: XR CERVICAL SPINE CLINICAL INFORMATION: Neck pain and limited range of motion Cervicalgia COMPARISON: Cervical spine 08/15/2017 TECHNIQUE: 4 views of the cervical spine were obtained. FINDINGS: The odontoid is obscured on the open-mouth view. There is no fracture or subluxation. Prevertebral soft tissues are within normal limits. There is straightening of the usual cervical lordosis which can be seen with muscle spasm or be due to patient positioning. There is fusion of the C5 and C6 vertebral bodies as previously seen. There is mild disc space narrowing with marginal osteophyte formation at C3-C4, C4-C5 and and C6-C7. Multilevel endplate osteophytes are noted. The lung apices are clear. Multilevel degenerative facet joint disease. XR/XR cervical spine 2V IMPRESSION: 1. Straightening of the usual cervical lordosis which can be seen with muscle spasm or be due to patient positioning. 2. Bony fusion of the C5 and C6 vertebral bodies. 3. Multilevel degenerative disc disease Assessment & Plan Assessment & Plan (1) Postlaminectomy syndrome, cervical: Code(s): M96.1 - Postlaminectomy syndrome, not elsewhere classified Category: Medical (2) Degeneration, intervertebral disc, cervical: Code(s): M50.30 - Other cervical disc degeneration, unspecified cervical region Category: Medical (3) Spondylosis of cervical region without myelopathy or radiculopathy: Code(s): M47.812 - Spondylosis without myelopathy or radiculopathy, cervical region Category: Medical Plan Unfortunately his neurosurgeon's office is closed at this time. Therefore his MRI reports and medical records from that office are not available for us. He received multiple steroid injections in his neck in the past. I think he exhausted possibilities of the cervical injections. I offered this patient neuromodulation in the form of [employer] [facility]. I explained briefly [employer] to the patient and I gave him brochure to read. He may use the telephone on the brochure to contact [employer] representatives who will be able to explained procedure in more detail. Considering potential future SCS I need to see the patient's MRI. He had MRI more than 10 years ago and therefore he does not require contract. He does not have metal hardware in the back the fusion C5-C6 was done with autologous bone most likely because on the x-ray there is no metal artifacts. I will see this patient when his MRI is ready, it will be most likely in 6 weeks. Orders: Orders MR cervical spine wo con Today M47.812 - Spondylosis without myelopathy or radiculopathy, cervical region, M50.30 - Other cervical disc degeneration, unspecified cervical region, M96.1 - Postlaminectomy syndrome, not elsewhere classified Patient Instructions: I here by testify that I spent 45 minutes in conversation with this patient as well as examination his studies, planning his care and organizing this note. Coding Level of Care Code New Pt Level 4 (79825) Diagnoses Postlaminectomy syndrome, cervical M96.1 Degeneration, intervertebral disc, cervical M50.30 Spondylosis of cervical region without myelopathy or radiculopathy M47.812
[2024-01-29 09:33] VITALS: BP 146/62; PULSE 71; RESP 16; O2SAT 99; BMI 33.7
== END 2024-01-29 09:54 | disposition home or self-care (01) ==
PROVIDERS: PCP Internal Medicine; Visit Provider Anesthesiology
DX: M96.1 Postlaminectomy syndrome, not elsewhere classified (principal); M50.30 Other cervical disc degeneration, unspecified cervical region; M47.812 Spondylosis without myelopathy or radiculopathy, cervical region
CPT/HCPCS: 99204

== ENCOUNTER → 2024-01-29 09:18 | Outpatient (BNVA) | payer OTHER, SELFPAY | PROVIDERS: PCP Internal Medicine; Visit Provider Anesthesiology | DX: M96.1 Postlaminectomy syndrome, not elsewhere classified (principal); M50.30 Other cervical disc degeneration, unspecified cervical region; M47.812 Spondylosis without myelopathy or radiculopathy, cervical region | CPT/HCPCS: 99202 ==

== ENCOUNTER 2024-03-10 06:13 | Outpatient (REF) | payer OTHER, SELFPAY ==
[2024-03-10 06:22] LABS: MANUAL DIFF FLAG NO
[2024-03-10 07:38] LABS: Basophils Absolute Auto 0.1 X10*3/uL (0.0-0.2); Basophils Percent Auto 0.8 % (0-2); Eosinophils Absolute Auto 0.3 X10*3/uL (0.0-0.4); Eosinophils Percent Auto 3.6 % (0-4); Hemoglobin 13.9 g/dl (14.0-18.0); Imm Gran Abs Auto 0.02 X10*3/uL (0.00-0.03); Imm Gran Pct Auto 0.3 % (0.0-0.4); Immature Retic Fraction 8.8 % (2.3-13.4); Lymphocytes Absolute Auto 2.8 X10*3/uL (1.2-4.9); Lymphocytes Percent Auto 39.1 % (20-40); Mean Corpuscular HGB Conc 33.1 g/dl (31.0-36.0); Mean Corpuscular Hemoglobin 27.3 pg (27.0-33.0); Mean Corpuscular Volume 82.4 fL (80.0-98.0); Mean Platelet Volume 9.5 fL (9.4-12.4); Monocytes Absolute Auto 0.7 X10*3/uL (0.1-1.2); Monocytes Percent Auto 9.8 % (2-11); Neutrophils Absolute Auto 3.4 x10*3/uL (2.0-8.3); Neutrophils Percent Auto 46.4 % (45-73); Platelet Count 258 X10*3/uL (160-400); Red Cell Distribution Width 14.7 % (11.0-16.0); Retic HGB Equivalent 30.5 pg (30.0-35.0); Reticulocyte Percent 0.9 % (0.5-1.8); Reticulocytes Absolute 0.044 X10*6/uL (0.026-0.095); White Blood Count 7.3 X10*3/uL (4.8-10.8)
[2024-03-10 07:55] LABS: Alanine Aminotransferase 43 U/L (0-40); Albumin Level 4.4 g/dL (3.5-5.0); Alkaline Phosphatase 53 U/L (39-117); Anion Gap 15 (12-20); Aspartate Amino Transferase 30 U/L (5-37); Bilirubin Total 0.4 mg/dL (0.0-1.0); Blood Urea Nitrogen 12 mg/dL (9-16); Calcium 9.4 mg/dL (8.4-10.2); Carbon Dioxide 23 mmol/L (22-29); Chloride 107 mmol/L (96-108); Cholesterol 155 mg/dL (<200); Estimated Glomerular Filt Rate > 60; Glucose Random 117 mg/dL (60-115); HDL Cholesterol 59 mg/dL (>40); Iron 102 mcg/dL (45-160); LDL Cholesterol Calculated 85 mg/dL (<100); Percent Iron Saturation 35 % (15-50); Potassium 4.1 mmol/L (3.3-5.1); Sodium 141 mmol/L (135-145); Total Iron Binding Capacity 290 mcg/dL (228-428); Total Protein 7.2 g/dL (6.5-8.0); Triglycerides 56 mg/dL (<150); Unsaturated Iron Binding 188 ug/dL
[2024-03-10 08:20] LABS: Estimated Average Glucose 128 mg/dL; Hemoglobin A1c % 6.1 % (<6.0)
[2024-03-10 08:30] LABS: Folate 13.9 ng/mL (> or = 4.0); Vitamin B12 929 pg/mL (200-900)
== END 2024-03-10 06:14 | disposition home or self-care (01) ==
LOC: HO.LAB 06:13
PROVIDERS: PCP Internal Medicine; Visit Provider Internal Medicine
DX: R73.01 Impaired fasting glucose (principal); E78.00 Pure hypercholesterolemia, unspecified
CPT/HCPCS: 36415; 80053; 80061; 82607; 82746; 83036; 83540; 85025; 85045

== ENCOUNTER 2024-03-11 10:03 | Outpatient (AMB) | payer OTHER, SELFPAY ==
--- NOTE | 2024-03-11 10:09 | MHC.OFFVIS ---
Vital Signs 03/11/24 10:15 Height 5 ft 7 in Weight 215 lb 8 oz BMI 33.7 BP 130/61 Blood Pressure Location Lt brachial Position Sitting Respiration 14 Pulse 73 Pulse Source Pulse Oximeter Pulse Oximetry (%) 98 Oxygen Delivery Method Room Air Intake Visit Reasons: 6 week follow up Intake Note: Patient comes in for 6 weeks follow up.Reports pain 9/10. Allergies lisinopril Adverse Reaction (Intermediate, Verified 03/11/24 10:15) dryness of throat HPI Comments Details: Rickie is back in my office with complains on cervicalgia severe cervical pain syndrome. We in the past discussed treatment of postlaminectomy syndrome cervical spine with spinal cord stimulator [facility] [employer]. Brochure was given to him. Patient agreed to go for the procedure. He will be scheduled for psychological evaluation in the office. He does not have computer at home. After he is scheduled for psychological evaluation and past psychological evaluation I will schedule him for the cervical lead placement trial of the spinal cord stimulator [facility] [employer]. . He reports pain in the neck and pain in the left shoulder joint remote pain in lower back. He is scheduled for MRI on the cervical spine to be performed of 03/18/2024 this MRI I need to examined before the procedure. He had surgery on his neck in [address] Hernandez. Unfortunately we will not be able to obtain the records from that doctor's office, it is permanently closed. We have x-ray available in the chart results of which dictated as below. He had physical therapy for his neck pain many years ago he reported exacerbation of the pain secondary to physical therapy. He received multiple steroid injections in his neck. Those injections were performed in [place]. He does not know the name of the practitioner however after many years of injections this practitioner told him that because of potential osteoporosis he should avoid steroid injections in the neck. He has past medical history of asthma and he has urticaria skin condition. His past surgical history described as above next surgery and shoulder surgery, social history he is retired and disabled individual he denies smoking cigarettes denies drinking alcohol drinks coffee but not soda and denies recreational drugs. [facility] Medical History (Updated 01/29/24 @ 09:56 by Ezra Luna MD) Blood pressure elevated without history of HTN Carpal tunnel syndrome of right wrist Tubular adenoma of colon Ulnar nerve entrapment Obesity (BMI 30-39.9) Asthma Cervicalgia Surgical History H/O shoulder surgery H/O hand surgery Hx of colonoscopy History of neck surgery Family History Father Cancer Diabetes Hypertension Mother Hypertension CVD (cardiovascular disease) Social History Housing: Apartment Are you a primary respiratory care instructor to a significant other at home: No Do you presently have visiting nurse or other home services: No Alcohol intake: never Patient Tobacco Use Status: Former Tobacco user Tobacco use type: Cigarette Years Smoked: 1994 e-Cigarette/Vaping Use: Never Used Second Hand Smoke Exposure: No service: No Current occupational status: disabled Cognitive needs: No Hearing needs: No Vision needs: No Review of Systems Const All systems reviewed & are unremarkable except as noted in HPI and below ENT Reports Normal hearing present Neuro Reports Normal hearing present Physical Exam Vital Signs: Last Vital Signs Pulse 73 03/11/24 10:15 Resp 14 03/11/24 10:15 BP 130/61 03/11/24 10:15 Pulse Ox 98 03/11/24 10:15 Oxygen Delivery Method Room Air 03/11/24 10:15 BMI result Body Mass Index 33.7 Const General: comfortable and no acute distress Nutritional Appearance: average body habitus and well nourished Orientation/consciousness: patient oriented x3 Neck Other: On inspection patient tends to keep his head slightly turned to the left side avoiding tension in the left side of the neck. Tenderness on palpation in paraspinal spinal region of the cervical spine most tender spot approximately in the projection of C4-C5 vertebral bodies. All motions of the cervical spine are very painful for the patient. Spurling test is negative bilaterally, axial compression on the head reveals pain in the projection of the midcervical spine, however this pain does not radiate down the spine therefore Lhermitte is negative. Normal strength and sensation of bilateral upper extremities. Tenderness on palpation in the projection of the left shoulder. See as below. Resp Effort & Inspection: normal respiratory effort, able to speak in complete sentences, normal respiratory pattern, no audible wheezes and no cough Cardio Jugular venous distension: no JVD GI Inspection: Yes normal to inspection Neuro General: patient oriented x3 Cranial nerves: Yes Normal hearing present Extrem Other: Left shoulder normal to inspection.? No ecchymosis, redness or edema.? Prior incision sites are well approximated and healed.? Patient is able to demonstrate forward flexion to 110 degrees.? Abduction to 90 degrees.? Sensation intact.? Radial pulse intact. Results Reviewed Results Reviewed: XR CERVICAL SPINE CLINICAL INFORMATION: Neck pain and limited range of motion Cervicalgia COMPARISON: Cervical spine 08/15/2017 TECHNIQUE: 4 views of the cervical spine were obtained. FINDINGS: The odontoid is obscured on the open-mouth view. There is no fracture or subluxation. Prevertebral soft tissues are within normal limits. There is straightening of the usual cervical lordosis which can be seen with muscle spasm or be due to patient positioning. There is fusion of the C5 and C6 vertebral bodies as previously seen. There is mild disc space narrowing with marginal osteophyte formation at C3-C4, C4-C5 and and C6-C7. Multilevel endplate osteophytes are noted. The lung apices are clear. Multilevel degenerative facet joint disease. XR/XR cervical spine 2V IMPRESSION: 1. Straightening of the usual cervical lordosis which can be seen with muscle spasm or be due to patient positioning. 2. Bony fusion of the C5 and C6 vertebral bodies. 3. Multilevel degenerative disc disease Assessment & Plan Assessment & Plan (1) Postlaminectomy syndrome, cervical: Code(s): M96.1 - Postlaminectomy syndrome, not elsewhere classified Category: Medical (2) Degeneration, intervertebral disc, cervical: Code(s): M50.30 - Other cervical disc degeneration, unspecified cervical region Category: Medical (3) Spondylosis of cervical region without myelopathy or radiculopathy: Code(s): M47.812 - Spondylosis without myelopathy or radiculopathy, cervical region Category: Medical Plan Unfortunately his neurosurgeon's office is closed at this time. Therefore his MRI reports and medical records from that office are not available for us. He received multiple steroid injections in his neck in the past. I think he exhausted possibilities of the cervical injections. I offered this patient neuromodulation in the form of [employer]. Patient agreed to go for the procedure. He needs to go for psychological evaluation in the office because he does not have computer at home. I will schedule him accordingly in the office for psychological evaluation. I will see the MRI which will be performed on 03/18/2024 to prepare him for the surgery. The feasibility of accessing of the epidural space will be evaluated on the MRI. I will see this patient in the office after he will past psychological evaluation. Patient Instructions: I here by testify that I spent 32 minutes in conversation with this patient as well as evaluating his prior images, evaluating prior diagnostic studies planning his care and organizing this note. Coding Level of Care Code Est Pt Level 4 (23487) Diagnoses Postlaminectomy syndrome, cervical M96.1 Degeneration, intervertebral disc, cervical M50.30 Spondylosis of cervical region without myelopathy or radiculopathy M47.812
[2024-03-11 10:15] VITALS: BP 130/61; PULSE 73; RESP 14; O2SAT 98; BMI 33.7
== END 2024-03-11 10:52 | disposition home or self-care (01) ==
PROVIDERS: PCP Internal Medicine; Visit Provider Anesthesiology
DX: M96.1 Postlaminectomy syndrome, not elsewhere classified (principal); M50.30 Other cervical disc degeneration, unspecified cervical region; M47.812 Spondylosis without myelopathy or radiculopathy, cervical region
CPT/HCPCS: 99214

== ENCOUNTER → 2024-03-11 10:03 | Outpatient (BNVA) | payer OTHER, SELFPAY | PROVIDERS: PCP Internal Medicine; Visit Provider Anesthesiology | DX: M47.812 Spondylosis without myelopathy or radiculopathy, cervical region (principal); M50.30 Other cervical disc degeneration, unspecified cervical region; M96.1 Postlaminectomy syndrome, not elsewhere classified | CPT/HCPCS: 99212 ==

== ENCOUNTER 2024-03-11 13:21 | Outpatient (AMB) | payer OTHER, SELFPAY ==
[2024-03-11 13:28] VITALS: BP 138/70; PULSE 78; O2SAT 98; BMI 33.8
--- NOTE | 2024-03-11 13:28 | A.OFFPC_ITS ---
Vital Signs 03/11/24 13:28 Height 5 ft 7 in Weight 216 lb BMI 33.8 BP 138/70 Blood Pressure Location Lt brachial Position Sitting Pulse 78 Pulse Source Pulse Oximeter Pulse Oximetry (%) 98 Oxygen Delivery Method Room Air Intake Visit Reasons: Pain Med Follow Up Allergies lisinopril Adverse Reaction (Intermediate, Verified 03/11/24 13:28) dryness of throat Tobacco use date assessed: 01/10/24 Dental Screening Dental Screen Date: 10/14/23 HPI Pain Med Follow Up HPI Details 58-year-old obese male with cervicalgia on narcotic pain medication coming in for refill every month. Has impaired glucose tolerance and history of tubular adenoma. Patient comes in for follow-up. Last seen in January 09 review of the notes has followed up with pain management has advised spinal cord stimulator and has referred for psychological evaluation and cervical lead placement trial and scheduled for an MRI of the cervical spine done in 03/07/2024. X-ray Showing straightening of the usual cervical lordosis with muscle spasm bony fusion C5-6 and multi level degenerative disc disease PFSH Medical History (Updated 03/11/24 @ 13:57 by Arash Gerard MD) Blood pressure elevated without history of HTN Carpal tunnel syndrome of right wrist Tubular adenoma of colon Ulnar nerve entrapment Obesity (BMI 30-39.9) Asthma Cervicalgia Surgical History H/O shoulder surgery H/O hand surgery Hx of colonoscopy History of neck surgery Family History Father Cancer Diabetes Hypertension Mother Hypertension CVD (cardiovascular disease) Social History Housing: Apartment Are you a primary doggy daycare activities director to a significant other at home: No Do you presently have visiting nurse or other home services: No Alcohol intake: never Patient Tobacco Use Status: Former Tobacco user Tobacco use type: Cigarette Years Smoked: 1994 e-Cigarette/Vaping Use: Never Used Second Hand Smoke Exposure: No service: No Current occupational status: disabled Cognitive needs: No Hearing needs: No Vision needs: No Questionnaire PHQ-9 Over the last 2 weeks, how often have you been bothered by any of the following problems? 1. Little interest or pleasure in doing things: not at all 2. Feeling down, depressed, or hopeless: not at all 3. Trouble falling or staying asleep, or sleeping too much: not at all 4. Feeling tired or having little energy: not at all 5. Poor appetite or overeating: not at all 6. Feeling bad about yourself - or that you are a failure or have let yourself or your family down: not at all 7. Trouble concentrating on things, such as reading the newspaper or watching television: not at all 8. Moving or speaking so slowly that other people could have noticed. Or the opposite - being so fidgety or restless that you have been moving around a lot more than usual: not at all 9. Thoughts that you would be better off or of hurting yourself in some way: not at all Total score: 0 Depression Screening Interpretation: Negative Depression Screening Done: Yes Source: Developed by Drs. Ze Lopez, Catrina Locke, Abel Fields and colleagues, with an educational reji from [employer]. Thrive Questionnaire Date Thrive assessed: 09/13/23 AUDIT C Alcohol Use Questionnaire (AUDIT-C) 1. How often do you have a drink containing alcohol?: Never 2. How many drinks containing alcohol do you have on a typical day when you are drinking?: 1 or 2 (0) 3. How often do you have six or more drinks on one occasion?: Never Total Score: 0 JAREN-7 AMB Questionnaire JAREN-7 Date JAREN - 7 assessed: 09/13/23 Source: Developed by Drs. Ze Lopez, Catrina Locke, Abel Fields and colleagues, with an educational reji from [employer]. Physical exam (Primary Care) Vital Signs: Last Vital Signs Pulse 78 03/11/24 13:28 BP 138/70 03/11/24 13:28 Pulse Ox 98 03/11/24 13:28 Oxygen Delivery Method Room Air 03/11/24 13:28 BMI result Body Mass Index 33.8 Tobacco/Smoking Status: Tobacco use Status Tobacco use date assessed 01/10/24 03/11/24 13:29 Patient Tobacco Use Status Former Tobacco user 03/11/24 13:29 Tobacco use type Cigarette 03/11/24 13:29 e-Cigarette/Vaping Use Never Used 03/11/24 13:29 PHQ-9: PHQ-9 Score PHQ-9: Total score 0 03/11/24 13:38 Depression Screening Interpretation: Negative Thrive Assessment: Date of Thrive Assessment Date Thrive assessed 09/13/23 03/11/24 13:29 Const General: alert; No acute distress Eyes Conjunctivae: conjunctivae normal Resp Auscultation: clear to auscultation bilaterally Cardio Rate: regular rate Rhythm: regular rhythm GI Inspection: Yes normal to inspection Extrem General: Yes normal to inspection and No edema Assessment and Plan Assessment & Plan (1) Postlaminectomy syndrome, cervical: Code(s): M96.1 - Postlaminectomy syndrome, not elsewhere classified Plan: Patient is presently seeing pain management and planned on psychological worked up as well as spinal cord stimulator placement. Narcotic pain meds: Is being prescribed with the understanding that these medications are potentially addictive and should be used only when absolutely necessary and must always be secured. Any remaining pills should be safely disposed off appropriately. Patient is advised that narcotics can impaired judgment and one should not drive or operate heavy machinery while taking these medications. Never share these medications with anybody and do not leave them unattended. They will not be replaced under any circumstances. (2) Anemia of chronic disease: Code(s): D63.8 - Anemia in other chronic diseases classified elsewhere Plan: Continue to follow the up and monitor. (3) Obesity (BMI 30-39.9): Code(s): E66.9 - Obesity, unspecified Plan: Diet and exercise (4) Impaired fasting blood sugar: Code(s): R73.01 - Impaired fasting glucose Plan: Decrease the amount of carbohydrate intake, pasta, bread, rice and potatoes are all sugar and that is aside from all the sweet stuff, remember that fruits are good but they are Sweet also. (5) LFT elevation: Code(s): R7. - Other specified abnormal findings of blood chemistry Orders: Orders Hepatitis B,C Profile 3 Months - Other specified abnormal findings of blood chemistry Comprehensive Met. Panel 3 Months - Other specified abnormal findings of blood chemistry Hemoglobin A1c 3 Months - Other specified abnormal findings of blood chemistry US abdomen complete Today - Other specified abnormal findings of blood chemistry Coding Level of Care Code Est Pt Level 4 (61120) Diagnoses Postlaminectomy syndrome, cervical M96.1 Anemia of chronic disease D63.8 Obesity (BMI 30-39.9) E66.9 Impaired fasting blood sugar R73.01 LFT elevation R79.89
== END 2024-03-11 15:09 | disposition home or self-care (01) ==
PROVIDERS: PCP Internal Medicine; Visit Provider Internal Medicine
DX: M96.1 Postlaminectomy syndrome, not elsewhere classified (principal); D63.8 Anemia in other chronic diseases classified elsewhere; R73.01 Impaired fasting glucose; R79.89 Other specified abnormal findings of blood chemistry
CPT/HCPCS: 99214

== ENCOUNTER 2024-03-18 12:33 | Outpatient (REF) | payer OTHER, SELFPAY ==
--- NOTE | ~2024-03-18 | MR_ITS ---
EXAMINATION: MR CERVICAL SPINE WITHOUT CONTRAST CLINICAL INFORMATION: Postlaminectomy syndrome COMPARISON: None available. TECHNIQUE: MRI of the cervical spine was obtained using routine sequences without contrast. FINDINGS: The imaged posterior fossa is unremarkable. Straightening of the normal cervical lordosis. Trace retrolisthesis at C3-4. Grade 1 anterolisthesis at C7-T1. Sequelae of C5-C6 vertebral body fusion. Acute to subacute Schmorl's nodes at T7 superior endplate posteriorly and T1 superior endplate. The remaining vertebral body heights are preserved. Multilevel disc desiccation and disc height loss, worsening severe at C3-4 and C6-7. The visualized cord is normal in caliber. No abnormal cord signal. C2-3: Bilateral uncovertebral hypertrophy, ligamentum flavum hypertrophy, and facet arthrosis. Moderate right neural foraminal narrowing. No significant spinal canal stenosis. C3-4: Disc osteophyte complex, and ligamentum flavum hypertrophy, bilateral uncovertebral hypertrophy, and bilateral facet arthrosis. Moderate spinal canal stenosis. Moderate bilateral neural foraminal narrowing. C4-5: Disc osteophyte complex, ligamentum flavum hypertrophy, bilateral uncovertebral hypertrophy, and bilateral facet arthrosis. Moderate spinal canal stenosis with mass effect on the cord. Severe bilateral neural foraminal narrowing. C5-6: Decompressed spinal canal. Moderate left neural foraminal narrowing. C6-7: Disc osteophyte complex, ligamentum flavum hypertrophy. Bilateral uncovertebral hypertrophy, and bilateral facet arthrosis. Severe spinal canal stenosis with impingement of the cord. Severe bilateral neural foraminal narrowing. C7-T1: Disc osteophyte complex, bilateral uncovertebral hypertrophy, bilateral facet arthrosis. Moderate spinal canal stenosis. Severe bilateral neural foraminal narrowing. T1-T2: Diffuse disc bulge. No significant canal spinal canal stenosis. Moderate to severe right and moderate left neural foraminal narrowing. The paravertebral soft tissues are unremarkable. MR/MR cervical spine wo con IMPRESSION: -Sequelae of C5-C6 vertebral body fusion with decompression of the spinal canal. -Multilevel spinal canal stenosis, severe at C6-7 and moderate at C3-4 and C4-5. -Neural foraminal narrowing is worse and severe at C4-5 bilaterally and C6-7 bilaterally. Electronically signed by: Becca Ellison MD 04/15/2024 04:51 PM EDT RP
== END 2024-03-18 12:34 | disposition home or self-care (01) ==
LOC: HO.MRI 12:33
PROVIDERS: PCP Internal Medicine; Visit Provider Anesthesiology
DX: M96.1 Postlaminectomy syndrome, not elsewhere classified (principal); M50.30 Other cervical disc degeneration, unspecified cervical region; M47.812 Spondylosis without myelopathy or radiculopathy, cervical region
CPT/HCPCS: 72141

== ENCOUNTER → 2024-03-19 10:18 | Outpatient (BNVA) | payer OTHER, SELFPAY | PROVIDERS: PCP Internal Medicine; Visit Provider Anesthesiology ==

== ENCOUNTER 2024-03-20 08:36 | Outpatient (REF) | payer OTHER, SELFPAY ==
--- NOTE | ~2024-03-20 | US_ITS ---
EXAMINATION: US ABDOMEN COMPLETE CLINICAL INFORMATION: Unspecified abnormal findings of blood chemistry. COMPARISON: Ultrasound abdomen 10/11/2008 TECHNIQUE: Real-time imaging of the abdominal viscera. FINDINGS: PANCREAS: The head and the body the pancreas is homogeneous in echotexture. The tail is obscured by overlying gas. ABDOMINAL AORTA: The proximal, mid, and distal segments are normal in caliber. INFERIOR VENA CAVA: Visualized portions are normal. LIVER: There are 2 hyp to isoechoic areas in the right hepatic lobe measuring 1.5 x 1.0 cm and 1.4 x 1.6 cm. The liver is otherwise normal size and contour. The parenchymal echotexture is normal. There is no intrahepatic biliary duct dilatation seen. GALLBLADDER: Normal. The gallbladder is physiologically distended without evidence of stones, sludge, polyps, wall thickening or pericholecystic fluid. COMMON BILE DUCT: Normal in caliber measuring 0.5 cm in diameter. RIGHT KIDNEY: Normal. No hydronephrosis. No renal calculi or focal parenchymal lesions. The kidney measures 11.3 cm in maximum dimension. LEFT KIDNEY: Normal. No hydronephrosis. No renal calculi or focal parenchymal lesions. The kidney measures 11.8 cm in maximum dimension. SPLEEN: Normal. The spleen measures 9.8 cm in maximum dimension. FREE FLUID: None. US/US abdomen complete IMPRESSION: 1. There are 2 hypoechoic areas in the right hepatic lobe. Question artifact versus adenoma. Focal fatty infiltration is considered less likely. The rest of the liver is unremarkable. Recommend CT liver protocol without and with contrast. 2. The rest of the abdominal ultrasound is unremarkable.
== END 2024-03-20 08:37 | disposition home or self-care (01) ==
LOC: HO.US 08:36
PROVIDERS: Visit Provider Internal Medicine
DX: R79.89 Other specified abnormal findings of blood chemistry (principal)
CPT/HCPCS: 76700

== ENCOUNTER → 2024-03-31 08:36 | Outpatient (BNVA) | payer OTHER, SELFPAY | PROVIDERS: PCP Internal Medicine; Visit Provider Anesthesiology ==

== ENCOUNTER 2024-04-09 06:42 | Outpatient (REF) | payer OTHER, SELFPAY ==
[2024-04-09 07:27] LABS: Alanine Aminotransferase 26 U/L (0-40); Alkaline Phosphatase 48 U/L (39-117); Anion Gap 11 (12-20); Aspartate Amino Transferase 25 U/L (5-37); Bilirubin Total 0.2 mg/dL (0.0-1.0); Blood Urea Nitrogen 20 mg/dL (9-16); Calcium 9.2 mg/dL (8.4-10.2); Carbon Dioxide 27 mmol/L (22-29); Chloride 109 mmol/L (96-108); Estimated Glomerular Filt Rate > 60; Glucose Random 104 mg/dL (60-115); Potassium 4.1 mmol/L (3.3-5.1); Sodium 143 mmol/L (135-145)
== END 2024-04-09 06:43 | disposition home or self-care (01) ==
LOC: HO.LAB 06:42
PROVIDERS: PCP Internal Medicine; Visit Provider Internal Medicine
DX: Z00.00 Encounter for general adult medical examination without abnormal findings (principal)
CPT/HCPCS: 36415; 80053

== ENCOUNTER 2024-04-10 11:30 | Outpatient (AMB) | payer OTHER, SELFPAY ==
[2024-04-10 11:31] VITALS: BP 130/80; PULSE 74; O2SAT 97; BMI 33.0
--- NOTE | 2024-04-10 11:31 | MHC.PC.OV ---
Vital Signs 04/10/24 11:31 Height 5 ft 7 in Weight 210 lb 8 oz BMI 33.0 BP 130/80 Blood Pressure Location Lt brachial Position Sitting Pulse 74 Pulse Source Pulse Oximeter Pulse Oximetry (%) 97 Oxygen Delivery Method Room Air Intake Visit Reasons: Pain Med Follow Up [employer] Board Certified Orthotist Required: No Accompanied by: Self / Same As Patient Allergies lisinopril Adverse Reaction (Intermediate, Verified 04/10/24 11:32) dryness of throat Tobacco use date assessed: 04/10/24 Dental Screening Dental Screen Date: 04/10/24 Did you have a dental visit in the last 12 months?: No Did you have a dental problem in the last 6 months where you did not have access to dental care?: No Was dental information given to patient?: Patient has dentist HPI Pain Med Follow Up HPI Details 58-year-old obese male with a history of cervical post laminectomy syndrome on narcotic pain medication coming in for follow-up. Last seen in March 11 patient also has anemia chronic disease impaired glucose tolerance. Ultrasound of the abdomen done showing fatty liver noted 2 hypoechoic areas of the right hepatic lobe. Patient had cervical spine MRI which results are not area. [facility] Medical History (Updated 04/10/24 @ 12:10 by Arash Gerard MD) Blood pressure elevated without history of HTN Carpal tunnel syndrome of right wrist Tubular adenoma of colon Ulnar nerve entrapment Obesity (BMI 30-39.9) Asthma Cervicalgia Surgical History H/O shoulder surgery H/O hand surgery Hx of colonoscopy History of neck surgery Family History Father Cancer Diabetes Hypertension Mother Hypertension CVD (cardiovascular disease) Social History Housing: Apartment Are you a primary resident care manager to a significant other at home: No Do you presently have visiting nurse or other home services: No Alcohol intake: never Patient Tobacco Use Status: Former Tobacco user Tobacco use type: Cigarette Years Smoked: 1994 e-Cigarette/Vaping Use: Never Used Second Hand Smoke Exposure: No service: No Current occupational status: disabled Cognitive needs: No Hearing needs: No Vision needs: No Questionnaire PHQ-9 Over the last 2 weeks, how often have you been bothered by any of the following problems? 1. Little interest or pleasure in doing things: not at all 2. Feeling down, depressed, or hopeless: not at all 3. Trouble falling or staying asleep, or sleeping too much: not at all 4. Feeling tired or having little energy: not at all 5. Poor appetite or overeating: not at all 6. Feeling bad about yourself - or that you are a failure or have let yourself or your family down: not at all 7. Trouble concentrating on things, such as reading the newspaper or watching television: not at all 8. Moving or speaking so slowly that other people could have noticed. Or the opposite - being so fidgety or restless that you have been moving around a lot more than usual: not at all 9. Thoughts that you would be better off or of hurting yourself in some way: not at all Total score: 0 Depression Screening Interpretation: Negative Depression Screening Done: Yes Source: Developed by Drs. Ze Lopez, Catrina Locke, Abel Fields and colleagues, with an educational reji from [employer]. Thrive Questionnaire Date Thrive assessed: 04/10/24 I am a: Patient What is your living situation today?: I have a steady place to live Within the past 12 months, did the food you bought not last and you didn't have the money to get more?: Never true Within the past 12 months, did you worry whether your food would run out before you got money to buy more?: Never true Do you have trouble paying for medicines?: No Do you have trouble getting transportation to medical appointments?: No Do you have trouble paying your heating and electricity bill?: No Do you have trouble taking care of your child, family member or friend?: No Do you have trouble with day-to-day activities such as bathing, preparing meals, shopping, managing finances, etc.?: No Are you currently unemployed and looking for a job?: No Are you interested in more education?: No Please select the resources that you would like help with: None Currently or been in a relationship where the following occur: No concerns reported THRIVE Score: 0 AUDIT C Alcohol Use Questionnaire (AUDIT-C) 1. How often do you have a drink containing alcohol?: Never 2. How many drinks containing alcohol do you have on a typical day when you are drinking?: 1 or 2 (0) 3. How often do you have six or more drinks on one occasion?: Never Total Score: 0 JAREN-7 AMB Questionnaire JAREN-7 Date JAREN - 7 assessed: 04/10/24 Feeling nervous, anxious, or on edge: 0 = Not at all Not being able to stop or control worryin = Not at all Worrying too much about different things: 0 = Not at all Trouble relaxin = Not at all Being so restless that it is hard to sit still: 0 = Not at all Becoming easily annoyed or irritable: 0 = Not at all Feeling afraid as if something awful might happen: 0 = Not at all Total JAREN-7 score (0-4 normal; 5-9 mild; 10-14 moderate; 15-21 severe): 0 Source: Developed by Drs. Ze Lopez, Catrina Locke, Abel Fields and colleagues, with an educational reji from [employer]. Physical exam (Primary Care) Vital Signs: Last Vital Signs Pulse 74 04/10/24 11:31 BP 130/80 04/10/24 11:31 Pulse Ox 97 04/10/24 11:31 Oxygen Delivery Method Room Air 04/10/24 11:31 BMI result Body Mass Index 33.0 Tobacco/Smoking Status: Tobacco use Status Tobacco use date assessed 04/10/24 04/10/24 11:37 Patient Tobacco Use Status Former Tobacco user 04/10/24 11:37 Tobacco use type Cigarette 04/10/24 11:37 e-Cigarette/Vaping Use Never Used 04/10/24 11:37 PHQ-9: PHQ-9 Score PHQ-9: Total score 0 04/10/24 12:11 Depression Screening Interpretation: Negative Thrive Assessment: Date of Thrive Assessment Date Thrive assessed 04/10/24 04/10/24 11:37 Currently or been in a relationship where the following occur: No concerns reported Const General: alert; No acute distress Eyes Conjunctivae: conjunctivae normal Resp Auscultation: clear to auscultation bilaterally Cardio Rate: regular rate Rhythm: regular rhythm GI Inspection: Yes normal to inspection Extrem General: Yes normal to inspection and No edema Assessment and Plan Assessment & Plan (1) Postlaminectomy syndrome, cervical: Code(s): M96.1 - Postlaminectomy syndrome, not elsewhere classified Plan: Narcotic pain meds: Is being prescribed with the understanding that these medications are potentially addictive and should be used only when absolutely necessary and must always be secured. Any remaining pills should be safely disposed off appropriately. Patient is advised that narcotics can impaired judgment and one should not drive or operate heavy machinery while taking these medications. Never share these medications with anybody and do not leave them unattended. They will not be replaced under any circumstances. Patient had cervical MRI in which the results are still pending. Patient also follows up with pain management (2) Liver nodule: Code(s): K76.89 - Other specified diseases of liver Plan: Patient was advised to get a CT scan of the abdomen (3) Fatty liver: Code(s): K76.0 - Fatty (change of) liver, not elsewhere classified Plan: Low-fat diet and exercise (4) Obesity (BMI 30-39.9): Code(s): E66.9 - Obesity, unspecified Plan: Diet and exercise (5) Impaired fasting blood sugar: Code(s): R73.01 - Impaired fasting glucose Plan: Decrease the amount of carbohydrate intake, pasta, bread, rice and potatoes are all sugar and that is aside from all the sweet stuff, remember that fruits are good but they are Sweet also. Coding Level of Care Code Est Pt Level 4 (21549) Diagnoses Postlaminectomy syndrome, cervical M96.1 Liver nodule K76.89 Fatty liver K76.0 Obesity (BMI 30-39.9) E66.9 Impaired fasting blood sugar R73.01
== END 2024-04-10 14:22 | disposition home or self-care (01) ==
PROVIDERS: PCP Internal Medicine; Visit Provider Internal Medicine
DX: M96.1 Postlaminectomy syndrome, not elsewhere classified (principal); K76.89 Other specified diseases of liver; Z68.33 Body mass index [BMI] 33.0-33.9, adult; E66.9 Obesity, unspecified; K76.0 Fatty (change of) liver, not elsewhere classified; R73.01 Impaired fasting glucose
CPT/HCPCS: 99214

== ENCOUNTER 2024-04-13 09:52 | Outpatient (AMB) | payer OTHER, SELFPAY ==
[2024-04-13 09:59] VITALS: BP 120/68; PULSE 70; O2SAT 98; BMI 33.4
--- NOTE | 2024-04-13 09:59 | MHC.PC.OV ---
Vital Signs 04/13/24 09:59 Height 5 ft 7 in Weight 213 lb BMI 33.4 BP 120/68 Blood Pressure Location Lt brachial Position Sitting Pulse 70 Pulse Source Pulse Oximeter Pulse Oximetry (%) 98 Oxygen Delivery Method Room Air Intake Visit Reasons: Annual Exam Allergies lisinopril Adverse Reaction (Intermediate, Verified 04/13/24 09:59) dryness of throat Medication List - Last Reconciled 04/13/24 by Arash Gerard MD albuterol sulfate 90 mcg/actuation (Ventolin HFA) 2 puffs inhalation Q6H PRN blood pressure monitor (Blood Pressure Kit) As directed budesonide-formoterol 80-4.5 mcg/actuation (Symbicort) 2 puffs inhalation BID 30 days oxycodone-acetaminophen 5-325 mg 1 tab PO Q6H PRN 28 days triamcinolone acetonide 0.5% 1 appl topical BID 14 days Tobacco use date assessed: 04/10/24 Dental Screening Dental Screen Date: 04/10/24 HPI Annual Exam HPI Details 58-year-old obese male with a history of post laminectomy syndrome on narcotic pain medication has a history of asthma impaired glucose tolerance hypertension anemia of chronic disease fatty liver coming in for physical exam last seen in April 10 for the back pain narcotic refill. Patient's last colonoscopy was done in June 2019 having tubular adenoma. croatian Celine(cannot hear) Herman [id number] colon test. occ mild dizzy, PFSH Medical History (Updated 04/13/24 @ 10:54 by Arash Gerard MD) Blood pressure elevated without history of HTN Carpal tunnel syndrome of right wrist Tubular adenoma of colon Ulnar nerve entrapment Obesity (BMI 30-39.9) Asthma Cervicalgia Surgical History H/O shoulder surgery H/O hand surgery Hx of colonoscopy History of neck surgery Family History Father Cancer Diabetes Hypertension Mother Hypertension CVD (cardiovascular disease) Social History Housing: Apartment Are you a primary team primary care physician to a significant other at home: No Do you presently have visiting nurse or other home services: No Alcohol intake: never Patient Tobacco Use Status: Former Tobacco user Tobacco use type: Cigarette Years Smoked: 1994 e-Cigarette/Vaping Use: Never Used Second Hand Smoke Exposure: No service: No Current occupational status: disabled Cognitive needs: No Hearing needs: No Vision needs: No Questionnaire PHQ-9 Over the last 2 weeks, how often have you been bothered by any of the following problems? 1. Little interest or pleasure in doing things: not at all 2. Feeling down, depressed, or hopeless: not at all 3. Trouble falling or staying asleep, or sleeping too much: not at all 4. Feeling tired or having little energy: not at all 5. Poor appetite or overeating: not at all 6. Feeling bad about yourself - or that you are a failure or have let yourself or your family down: not at all 7. Trouble concentrating on things, such as reading the newspaper or watching television: not at all 8. Moving or speaking so slowly that other people could have noticed. Or the opposite - being so fidgety or restless that you have been moving around a lot more than usual: not at all 9. Thoughts that you would be better off or of hurting yourself in some way: not at all Total score: 0 Depression Screening Interpretation: Negative Depression Screening Done: Yes Source: Developed by Drs. Ze Lopez, Catrina Locke, Abel Fields and colleagues, with an educational reji from [employer]. Thrive Questionnaire Date Thrive assessed: 04/10/24 AUDIT C Alcohol Use Questionnaire (AUDIT-C) 1. How often do you have a drink containing alcohol?: Never 2. How many drinks containing alcohol do you have on a typical day when you are drinking?: 1 or 2 (0) 3. How often do you have six or more drinks on one occasion?: Never Total Score: 0 JAREN-7 AMB Questionnaire JAREN-7 Date JAREN - 7 assessed: 04/10/24 Source: Developed by Drs. Ze Lopez, Catrina Locke, Abel Fields and colleagues, with an educational reji from [employer]. Review of Systems Const Denies poor appetite and Denies weakness Eyes Denies no additional complaints ENT Reports Normal hearing present, Denies dizziness, Denies nasal congestion, Denies tinnitus and Denies sore throat Card Denies chest pain, Denies syncope, Denies rapid heart rate and Denies dyspnea Resp Denies cough and Denies dyspnea GI Denies change in stool character, Reports constipation, Denies diarrhea, Denies nausea and Denies vomiting Denies dysuria and Denies urinary frequency Neuro Reports Normal hearing present, Denies confusion, Denies dizziness, Denies syncope and Denies weakness Psych Denies confusion Physical exam (Primary Care) Vital Signs: Last Vital Signs Pulse 70 04/13/24 09:59 BP 120/68 04/13/24 09:59 Pulse Ox 98 04/13/24 09:59 Oxygen Delivery Method Room Air 04/13/24 09:59 BMI result Body Mass Index 33.4 Tobacco/Smoking Status: Tobacco use Status Tobacco use date assessed 04/10/24 04/13/24 09:59 Patient Tobacco Use Status Former Tobacco user 04/13/24 09:59 Tobacco use type Cigarette 04/13/24 09:59 e-Cigarette/Vaping Use Never Used 04/13/24 09:59 PHQ-9: PHQ-9 Score PHQ-9: Total score 0 04/13/24 10:22 Depression Screening Interpretation: Negative Thrive Assessment: Date of Thrive Assessment Date Thrive assessed 04/10/24 04/13/24 09:59 Const General: No confusion Orientation/consciousness: No confusion HENMT Head: Yes normocephalic Ears: external ears normal and TM's normal bilaterally Face and sinus: Yes normal facial exam Mouth: moist mucous membranes Throat: Yes tonsils normal Eyes Conjunctivae: conjunctivae normal Pupils: Equal, round and reactive pupils present and Pupil accommodation reflex normal Direct Ophthalmoscopy: normal light reflex Neck Neck: No lymphadenopathy Thyroid: Thyroid normal Chest Chest palpation & inspection: normal inspection of the chest Resp Effort & Inspection: normal respiratory effort and no audible wheezes Auscultation: clear to auscultation bilaterally, no crackles, no wheezes and lung sounds not diminished Cardio Rate: regular rate Rhythm: regular rhythm Peripheral pulses: radial pulses present and dorsalis pedis present GI Palpation (GI): no masses Auscultation: normal bowel sounds and normoactive bowel sounds Rectal Exam - Male: Yes deferred Skin General skin exam: no rashes or lesions noted Rashes: no rashes Neuro General: No confusion Cranial nerves: Yes Equal, round and reactive pupils present and Yes Normal hearing present Cognition (Neuro): normal cognition Gait exam (Neuro): Normal gait present Motor exam (neuro): 5/5 motor strength present throughout Deep tendon reflexes (DTR's): Right brachioradialis reflex intensity grade: 2+, Left brachioradialis reflex intensity grade: 2+, Right patellar reflex intensity grade: 2+ and Left patellar reflex intensity grade: 2+ Extrem General: No edema Assessment and Plan Assessment & Plan (1) Annual physical exam: Code(s): Z00.00 - Encounter for general adult medical examination without abnormal findings Plan: Patient is advised to eat healthy, keep well hydrated, keep active and have adequate sleep. (2) Obesity (BMI 30-39.9): Code(s): E66.9 - Obesity, unspecified Plan: Diet and exercise (3) Asthma: Code(s): J45.909 - Unspecified asthma, uncomplicated Qualifiers: Asthma severity: mild Asthma persistence: intermittent Asthma complication type: uncomplicated Qualified Code(s): J45.20 - Mild intermittent asthma, uncomplicated Plan: On Symbicort and albuterol (4) Tubular adenoma of colon: Comment: June 2019 Code(s): D12.6 - Benign neoplasm of colon, unspecified Plan: Reminded about colonoscopy (5) Impaired fasting blood sugar: Code(s): R73.01 - Impaired fasting glucose Plan: Decrease the amount of carbohydrate intake, pasta, bread, rice and potatoes are all sugar and that is aside from all the sweet stuff, remember that fruits are good but they are Sweet also. (6) Postlaminectomy syndrome, cervical: Code(s): M96.1 - Postlaminectomy syndrome, not elsewhere classified Plan: Narcotic pain meds: Is being prescribed with the understanding that these medications are potentially addictive and should be used only when absolutely necessary and must always be secured. Any remaining pills should be safely disposed off appropriately. Patient is advised that narcotics can impaired judgment and one should not drive or operate heavy machinery while taking these medications. Never share these medications with anybody and do not leave them unattended. They will not be replaced under any circumstances. (7) Fatty liver: Code(s): K76.0 - Fatty (change of) liver, not elsewhere classified Plan: Low-fat diet and exercise (8) Hearing difficulty: Code(s): H91.90 - Unspecified hearing loss, unspecified ear (9) Liver nodule: Comment: U S done 03/2024 Code(s): K76.89 - Other specified diseases of liver Plan: CT scan requested Orders: Referrals Gastroenterology Referral D12.6 - Benign neoplasm of colon, unspecified Speech and Hearing Referral H91.90 - Unspecified hearing loss, unspecified ear Coding Level of Care Code Est Pt Prev Care 40-64y(01373) Diagnoses Annual physical exam Z00.00 Obesity (BMI 30-39.9) E66.9 Mild intermittent asthma without complication J45.20 Asthma severity: mild Asthma persistence: intermittent Asthma complication type: uncomplicated Tubular adenoma of colon D12.6 Impaired fasting blood sugar R73.01 Postlaminectomy syndrome, cervical M96.1 Fatty liver K76.0 Hearing difficulty H91.90 Liver nodule K76.89
== END 2024-04-13 11:05 | disposition home or self-care (01) ==
PROVIDERS: PCP Internal Medicine; Visit Provider Internal Medicine
DX: Z00.00 Encounter for general adult medical examination without abnormal findings (principal); E66.9 Obesity, unspecified; Z68.33 Body mass index [BMI] 33.0-33.9, adult; J45.20 Mild intermittent asthma, uncomplicated; D12.6 Benign neoplasm of colon, unspecified; R73.01 Impaired fasting glucose; M96.1 Postlaminectomy syndrome, not elsewhere classified; K76.0 Fatty (change of) liver, not elsewhere classified; K76.89 Other specified diseases of liver
CPT/HCPCS: 99396

== ENCOUNTER 2024-05-26 08:58 | Outpatient (REF) | payer OTHER, SELFPAY | END 2024-05-26 08:59 | disposition home or self-care (01) | LOC: HO.SH 08:58 | PROVIDERS: Visit Provider Internal Medicine | DX: Z01.118 Encounter for examination of ears and hearing with other abnormal findings (principal); H90.3 Sensorineural hearing loss, bilateral | CPT/HCPCS: 92557; 92567 ==

== ENCOUNTER 2024-06-04 08:42 | Outpatient (REF) | payer OTHER, SELFPAY ==
--- NOTE | ~2024-06-04 | CT_ITS ---
EXAMINATION: CT ABDOMEN WITHOUT AND WITH CONTRAST CLINICAL INFORMATION: Disorders of the liver. COMPARISON: No priors. Correlated to ultrasound dated March 20, 2024. TECHNIQUE: Contiguous axial thin section helical images of the abdomen were performed before and after the administration of 85 mL of Omnipaque 350 intravenous contrast without reported immediate complications. Acquisition during the arterial and portal venous phases.. The data set was reformatted in the coronal and sagittal planes and reviewed on an independent workstation. This CT examination was performed using dose optimization techniques as appropriate, variously including the following: *Automated exposure control *Adjustment of mA and/or kV according to patient size (this includes techniques or standardized protocols for targeted exams where dose is matched to indication/reason for exam; i.e. extremities or head) *Use of iterative reconstruction technique DLP: 878 mGy-cm FINDINGS: Submitted for interpretation on July 30, 2024. LUNG BASES: No acute airspace disease or gross pulmonary nodules. LIVER, GALLBLADDER, AND BILIARY TREE: Liver measures 17 cm. No focal enhancing mass. The arterial phase or the portal phase. Portal veins, hepatic veins and intrahepatic portion of the IVC are patent. No intrahepatic biliary ductal dilatation. No gross nodular surface of the liver. Fluid-filled gallbladder without pericholecystic fluid collection or gallbladder wall thickening. Common bile duct measures 4 mm in diameter. PANCREAS: No focal mass. No peripancreatic fluid collection. No main pancreatic ductal dilatation. SPLEEN: 9 cm. No focal mass. Small accessory spleen. ADRENAL GLANDS AND KIDNEYS: No nodular lesions in the adrenal glands. No gross renal mass or hydronephrosis. Normal enhancement pattern of the renal cortex and the medulla. BOWEL LOOPS: Abundant stool. No intestinal obstruction pattern. No pneumatosis intestinalis. No pneumoperitoneum. No ascites. Appendix is normal. LYMPH NODES: There are scattered prominent, 13 mm mesenteric and inguinal lymph nodes. VASCULAR: No aneurysm or dissection, abdominal aorta. BONES: Multilevel thoracolumbar spondylosis more conspicuous at L5-S1. Sclerosis of the sacroiliac joints. No acute fracture. Grade 1 retrolisthesis L2-3 on a degenerative basis. Small fat-containing umbilical hernia. Small fat-containing inguinal hernias, bilaterally CT/CT abdomen wo/w IV con IMPRESSION: Hepatomegaly. No gross liver mass. Prominent mesenteric and inguinal lymph nodes of concern etiology. Umbilical and inguinal fat-containing hernias.. Fleischner guidelines were followed. Electronically signed by: Eduardo German MD 07/30/2024 09:12 AM RIGO NELSON
[2024-06-04] MEDS: iohexoL 350 MG/ML 100 ML INFUS..BTL 85 ML IV (09:55)
[2024-06-04 16:51] LABS: Creatinine POC 0.8 mg/dL (0.5-1.4); GFR POC > 60
== END 2024-06-04 08:43 | disposition home or self-care (01) ==
LOC: HO.CT 08:42
PROVIDERS: PCP Internal Medicine
DX: K76.89 Other specified diseases of liver (principal)
CPT/HCPCS: 74170; 82565; Q9967

== ENCOUNTER → 2024-06-04 08:44 | Outpatient (BNV) | payer OTHER, SELFPAY | PROVIDERS: PCP Internal Medicine; Visit Provider Radiology Diagnostic Radiology | DX: K76.89 Other specified diseases of liver (principal) | CPT/HCPCS: 74170 ==

== ENCOUNTER 2024-06-11 11:37 | Outpatient (AMB) | payer OTHER, SELFPAY ==
--- NOTE | 2024-06-11 11:43 | A.OFFPC_ITS ---
Vital Signs 06/11/24 11:44 Height 5 ft 7 in Weight 214 lb BMI 33.5 BP 118/62 Blood Pressure Location Lt brachial Position Sitting Pulse 70 Pulse Source Pulse Oximeter Pulse Oximetry (%) 98 Oxygen Delivery Method Room Air Intake Visit Reasons: Pain Med Follow Up Signal Technician Required: No Accompanied by: Self / Same As Patient Allergies lisinopril Adverse Reaction (Intermediate, Verified 06/11/24 11:44) dryness of throat Medication List - Last Reconciled 06/11/24 by Arash Gerard MD albuterol sulfate 90 mcg/actuation (Ventolin HFA) 2 puffs inhalation Q6H PRN blood pressure monitor (Blood Pressure Kit) As directed budesonide-formoterol 80-4.5 mcg/actuation (Symbicort) 2 puffs inhalation BID 30 days oxycodone-acetaminophen 5-325 mg 1 tab PO Q6H PRN 28 days Tobacco use date assessed: 04/10/24 Dental Screening Dental Screen Date: 04/10/24 HPI Pain Med Follow Up HPI Details 59-year-old obese male with asthma impai red glucose tolerance cervical post laminectomy syndrome on narcotic pain medication fatty liver coming in for follow-up. Last seen in 04/13/2024. Patient was reminded about colonoscopy. Patient did have the CT scan done in June 04 in the results are still pen ding. Meanwhile patient had hearing test and noted asymmetric hearing lost and will need ear nose and throat referral. Reminded about colonoscopy and discussed that there was a tubular adenoma that needs to be followed up. Medication for pain is well supplied presently. Patient was told on needing an implant and was asking for referral. Discussed with the patient that I have never done a referral. Tell them to send the notes to me. Discussed weight gain seen in the office and patient just came from cruise in [place]. [facility] Medical History (Updated 06/11/24 @ 12:09 by Arash Gerard MD) Blood pressure elevated without history of HTN Carpal tunnel syndrome of right wrist Tubular adenoma of colon Ulnar nerve entrapment Obesity (BMI 30-39.9) Asthma Cervicalgia Surgical History H/O shoulder surgery H/O hand surgery Hx of colonoscopy History of neck surgery Family History Father Cancer Diabetes Hypertension Mother Hypertension CVD (cardiovascular disease) Social History Housing: Apartment Are you a primary care transition coordinator to a significant other at home: No Do you presently have visiting nurse or other home services: No Alcohol intake: never Patient Tobacco Use Status: Former Tobacco user Tobacco use type: Cigarette Years Smoked: 1994 e-Cigarette/Vaping Use: Never Used Second Hand Smoke Exposure: No service: No Current occupational status: disabled Cognitive needs: No Hearing needs: No Vision needs: No Questionnaire Thrive Questionnaire Date Thrive assessed: 04/10/24 JAREN-7 AMB Questionnaire JAREN-7 Date JAREN - 7 assessed: 04/10/24 Source: Developed by Drs. Ze Lopez, Catrina Locke, Abel Fields and colleagues, with an educational reji from [employer]. Physical exam (Primary Care) Vital Signs: Last Vital Signs Pulse 70 06/11/24 11:44 BP 118/62 06/11/24 11:44 Pulse Ox 98 06/11/24 11:44 Oxygen Delivery Method Room Air 06/11/24 11:44 BMI result Body Mass Index 33.5 Tobacco/Smoking Status: Tobacco use Status Tobacco use date assessed 04/10/24 06/11/24 11:44 Patient Tobacco Use Status Former Tobacco user 06/11/24 11:44 Tobacco use type Cigarette 06/11/24 11:44 e-Cigarette/Vaping Use Never Used 06/11/24 11:44 Thrive Assessment: Date of Thrive Assessment Date Thrive assessed 04/10/24 06/11/24 11:44 Const General: alert; No acute distress Eyes Conjunctivae: conjunctivae normal Resp Auscultation: clear to auscultation bilaterally Cardio Rate: regular rate Rhythm: regular rhythm GI Inspection: Yes normal to inspection Extrem General: Yes normal to inspection and No edema Coding Level of Care Code Est Pt Level 4 (35235) Diagnoses Liver nodule K76.89 Postlaminectomy syndrome, cervical M96.1 Obesity (BMI 30-39.9) E66.9 Tubular adenoma of colon D12.6 Asymmetrical hearing loss H91.8X3 Assessment & Plan Assessment & Plan (1) Liver nodule: Comment: U S done 03/2024 Code(s): K76.89 - Other specified diseases of liver Category: Medical Plan: CT scan has been ordered and awaiting results. (2) Postlaminectomy syndrome, cervical: Code(s): M96.1 - Postlaminectomy syndrome, not elsewhere classified Category: Medical Plan: Narcotic pain meds: Is being prescribed with the understanding that these medications are potentially addictive and should be used only when absolutely necessary and must always be secured. Any remaining pills should be safely disposed off appropriately. Patient is advised that narcotics can impaired judgment and one should not drive or operate heavy machinery while taking these medications. Never share these medications with anybody and do not leave them unattended. They will not be replaced under any circumstances. (3) Obesity (BMI 30-39.9): Code(s): E66.9 - Obesity, unspecified Category: Medical Plan: Discussed about diet and exercise patient has been gaining weight. (4) Tubular adenoma of colon: Comment: June 2019 Code(s): D12.6 - Benign neoplasm of colon, unspecified Category: Medical Plan: Patient is reminded about colonoscopy (5) Asymmetrical hearing loss: Code(s): H91.8X3 - Other specified hearing loss, bilateral Category: Medical Plan: Referral to ear nose and throat Orders: Referrals Ear/Nose/Throat Referral H91.8X3 - Other specified hearing loss, bilateral
[2024-06-11 11:44] VITALS: BP 118/62; PULSE 70; O2SAT 98; BMI 33.5
== END 2024-06-11 12:51 | disposition home or self-care (01) ==
PROVIDERS: PCP Internal Medicine; Visit Provider Internal Medicine
DX: M96.1 Postlaminectomy syndrome, not elsewhere classified (principal); K76.89 Other specified diseases of liver; Z68.33 Body mass index [BMI] 33.0-33.9, adult; E66.9 Obesity, unspecified; D12.6 Benign neoplasm of colon, unspecified; H91.8X3 Other specified hearing loss, bilateral

== ENCOUNTER → 2024-06-11 11:37 | Outpatient (BNVA) | payer OTHER, SELFPAY | PROVIDERS: PCP Internal Medicine; Visit Provider Internal Medicine | DX: M96.1 Postlaminectomy syndrome, not elsewhere classified (principal); E66.9 Obesity, unspecified; D12.6 Benign neoplasm of colon, unspecified; H91.8X3 Other specified hearing loss, bilateral | CPT/HCPCS: 99212 ==

== ENCOUNTER 2024-07-13 11:33 | Outpatient (AMB) | payer OTHER, SELFPAY ==
[2024-07-13 11:40] VITALS: BP 144/80; PULSE 75; O2SAT 98; BMI 32.6
--- NOTE | 2024-07-13 11:40 | A.OFFPC_ITS ---
Vital Signs 07/13/24 11:40 Height 5 ft 7 in Weight 208 lb BMI 32.6 BP 144/80 H Blood Pressure Location Lt brachial Position Sitting Pulse 75 Pulse Source Pulse Oximeter Pulse Oximetry (%) 98 Oxygen Delivery Method Room Air Intake Visit Reasons: Pain Med Follow Up Allergies lisinopril Adverse Reaction (Intermediate, Verified 07/13/24 11:41) dryness of throat Tobacco use date assessed: 04/10/24 Dental Screening Dental Screen Date: 04/10/24 HPI Pain Med Follow Up HPI Details 59-year-old obese male(noted 6 lb weight loss) with post laminectomy syndrome on narcotic pain medication coming in for follow-up. Last seen in June 11. [facility] Medical History (Updated 06/11/24 @ 12:09 by Arash Gerard MD) Blood pressure elevated without history of HTN Carpal tunnel syndrome of right wrist Tubular adenoma of colon Ulnar nerve entrapment Obesity (BMI 30-39.9) Asthma Cervicalgia Surgical History H/O shoulder surgery H/O hand surgery Hx of colonoscopy History of neck surgery Family History Father Cancer Diabetes Hypertension Mother Hypertension CVD (cardiovascular disease) Social History Housing: Apartment Are you a primary pulmonary care nurse to a significant other at home: No Do you presently have visiting nurse or other home services: No Alcohol intake: never Patient Tobacco Use Status: Former Tobacco user Tobacco use type: Cigarette Years Smoked: 1994 e-Cigarette/Vaping Use: Never Used Second Hand Smoke Exposure: No service: No Current occupational status: disabled Cognitive needs: No Hearing needs: No Vision needs: No Questionnaire PHQ-9 Over the last 2 weeks, how often have you been bothered by any of the following problems? 1. Little interest or pleasure in doing things: not at all 2. Feeling down, depressed, or hopeless: not at all 3. Trouble falling or staying asleep, or sleeping too much: not at all 4. Feeling tired or having little energy: not at all 5. Poor appetite or overeating: not at all 6. Feeling bad about yourself - or that you are a failure or have let yourself or your family down: not at all 7. Trouble concentrating on things, such as reading the newspaper or watching television: not at all 8. Moving or speaking so slowly that other people could have noticed. Or the opposite - being so fidgety or restless that you have been moving around a lot more than usual: not at all 9. Thoughts that you would be better off or of hurting yourself in some way: not at all Total score: 0 Depression Screening Interpretation: Negative Depression Screening Done: Yes Source: Developed by Drs. Ze Lopez, Catrina Locke, Abel Fields and colleagues, with an educational reji from [employer]. Thrive Questionnaire Date Thrive assessed: 04/10/24 AUDIT C Alcohol Use Questionnaire (AUDIT-C) 1. How often do you have a drink containing alcohol?: Never 2. How many drinks containing alcohol do you have on a typical day when you are drinking?: 1 or 2 (0) 3. How often do you have six or more drinks on one occasion?: Never Total Score: 0 JAREN-7 AMB Questionnaire JAREN-7 Date JAREN - 7 assessed: 04/10/24 Source: Developed by Drs. Ze Lopez, Catrina Locke, Abel Fields and colleagues, with an educational reji from [employer]. Physical exam (Primary Care) Vital Signs: Last Vital Signs Pulse 75 07/13/24 11:40 BP 144/80 H 07/13/24 11:40 Pulse Ox 98 07/13/24 11:40 Oxygen Delivery Method Room Air 07/13/24 11:40 BMI result Body Mass Index 32.6 Tobacco/Smoking Status: Tobacco use Status Tobacco use date assessed 04/10/24 07/13/24 11:41 Patient Tobacco Use Status Former Tobacco user 07/13/24 11:41 Tobacco use type Cigarette 07/13/24 11:41 e-Cigarette/Vaping Use Never Used 07/13/24 11:41 PHQ-9: PHQ-9 Score PHQ-9: Total score 0 07/13/24 11:41 Depression Screening Interpretation: Negative Thrive Assessment: Date of Thrive Assessment Date Thrive assessed 04/10/24 07/13/24 11:41 Const General: alert; No acute distress Eyes Conjunctivae: conjunctivae normal Resp Auscultation: clear to auscultation bilaterally Cardio Rate: regular rate Rhythm: regular rhythm GI Inspection: Yes normal to inspection Extrem General: Yes normal to inspection and No edema Office Procedures Flu Questionnaire Does the patient have a severe egg allergy?: No Does the patient have severe life threatening allergies?: No Does the patient have a fever or illness today?: No Has the patient ever had Guillain-[place] Syndrome?: No Has the patient ever had any past reaction to a flu shot?: No Immunizations Fluarix Triv [id number] (PF) 45 mcg (15 mcg x 3)/0.5 mL IM syringe Performing Provider: Arash Gerard MD [facility] Administered by: Emelia Hallman CMA on 07/13/24 11:48 Dose Route Admin Location Dispensed Lot Number Expiration Date NDC Curriculum Designer 0.5 mL IM Left Deltoid 0.5 mL [id number] 02/15/25 [id number] Concurrent Inc VIS Given Date VIS Provided VIS Publication Date 07/13/24 Single Vaccine 21 Eligibility Eligibility Date Funding Source Not [facility] Eligible 07/13/24 Private Coding Level of Care Code Est Pt Level 4 (83002) Diagnoses Obesity (BMI 30-39.9) E66.9 Tubular adenoma of colon D12.6 Postlaminectomy syndrome, cervical M96.1 Assessment & Plan Assessment & Plan (1) Obesity (BMI 30-39.9): Code(s): E66.9 - Obesity, unspecified Category: Medical Plan: Diet and exercise (2) Tubular adenoma of colon: Comment: June 2019 Code(s): D12.6 - Benign neoplasm of colon, unspecified Category: Medical Plan: Patient is reminded about colonoscopy 10/22/2024 (3) Postlaminectomy syndrome, cervical: Code(s): M96.1 - Postlaminectomy syndrome, not elsewhere classified Category: Medical Plan: Narcotic pain meds: Is being prescribed with the understanding that these medications are potentially addictive and should be used only when absolutely necessary and must always be secured. Any remaining pills should be safely disposed off appropriately. Patient is advised that narcotics can impaired judgment and one should not drive or operate heavy machinery while taking these medications. Never share these medications with anybody and do not leave them unattended. They will not be replaced under any circumstances. Orders: Orders Influenza [id number] Immunization Today Z23 - Encounter for immunization
== END 2024-07-13 12:38 | disposition home or self-care (01) ==
PROVIDERS: PCP Internal Medicine; Visit Provider Internal Medicine
DX: D12.6 Benign neoplasm of colon, unspecified (principal); E66.9 Obesity, unspecified; M96.1 Postlaminectomy syndrome, not elsewhere classified; Z68.32 Body mass index [BMI] 32.0-32.9, adult

== ENCOUNTER → 2024-07-13 11:33 | Outpatient (BNVA) | payer OTHER, SELFPAY | PROVIDERS: PCP Internal Medicine; Visit Provider Internal Medicine | DX: Z23 Encounter for immunization (principal); D21.9 Benign neoplasm of connective and other soft tissue, unspecified; M96.1 Postlaminectomy syndrome, not elsewhere classified; E66.9 Obesity, unspecified; Z68.32 Body mass index [BMI] 32.0-32.9, adult; Z71.3 Dietary counseling and surveillance | CPT/HCPCS: 90471; 90656; 96127; 99212 ==

== ENCOUNTER 2024-12-11 09:41 | Outpatient (AMB) | payer OTHER, SELFPAY ==
[2024-12-11 09:52] VITALS: BP 132/78; PULSE 68; O2SAT 98; BMI 32.9
--- NOTE | 2024-12-11 09:52 | A.OFFPC_ITS ---
Vital Signs 12/11/24 09:52 Height 5 ft 7 in Weight 210 lb BMI 32.9 BP 132/78 Blood Pressure Location Lt brachial Position Sitting Pulse 68 Pulse Source Pulse Oximeter Pulse Oximetry (%) 98 Oxygen Delivery Method Room Air Intake Visit Reasons: Pain Med Follow Up Allergies lisinopril Adverse Reaction (Intermediate, Verified 12/11/24 09:53) dryness of throat Tobacco use date assessed: 12/11/24 Dental Screening Dental Screen Date: 12/11/24 Did you have a dental visit in the last 12 months?: Yes Did you have a dental problem in the last 6 months where you did not have access to dental care?: No Was dental information given to patient?: Patient has dentist [facility] Medical History (Updated 06/11/24 @ 12:09 by Arash Gerard MD) Blood pressure elevated without history of HTN Carpal tunnel syndrome of right wrist Tubular adenoma of colon Ulnar nerve entrapment Obesity (BMI 30-39.9) Asthma Cervicalgia Surgical History H/O shoulder surgery H/O hand surgery Hx of colonoscopy History of neck surgery Family History Father Cancer Diabetes Hypertension Mother Hypertension CVD (cardiovascular disease) Social History Housing: Apartment Are you a primary health careers instructor to a significant other at home: No Do you presently have visiting nurse or other home services: No Alcohol intake: never Patient Tobacco Use Status: Former Tobacco user Tobacco use type: Cigarette Years Smoked: 1994 e-Cigarette/Vaping Use: Never Used Second Hand Smoke Exposure: No service: No Current occupational status: disabled Cognitive needs: No Hearing needs: No Vision needs: No Questionnaire PHQ-9 Over the last 2 weeks, how often have you been bothered by any of the following problems? 1. Little interest or pleasure in doing things: not at all 2. Feeling down, depressed, or hopeless: not at all 3. Trouble falling or staying asleep, or sleeping too much: not at all 4. Feeling tired or having little energy: not at all 5. Poor appetite or overeating: not at all 6. Feeling bad about yourself - or that you are a failure or have let yourself or your family down: not at all 7. Trouble concentrating on things, such as reading the newspaper or watching television: not at all 8. Moving or speaking so slowly that other people could have noticed. Or the opposite - being so fidgety or restless that you have been moving around a lot more than usual: not at all 9. Thoughts that you would be better off or of hurting yourself in some way: not at all Total score: 0 Depression Screening Interpretation: Negative Depression Screening Done: Yes 47249 - PHQ-9 Billing: Yes Source: Developed by Drs. Ze Lopez, Catrina Locke, Abel Fields and colleagues, with an educational reji from [employer]. Thrive Questionnaire Date Thrive assessed: 12/11/24 I am a: Patient What is your living situation today?: I have a steady place to live Within the past 12 months, did the food you bought not last and you didn't have the money to get more?: I choose not to answer this question Within the past 12 months, did you worry whether your food would run out before you got money to buy more?: I choose not to answer this question Do you have trouble paying for medicines?: No Do you have trouble getting transportation to medical appointments?: No Do you have trouble paying your heating and electricity bill?: No Do you have trouble taking care of your child, family member or friend?: No Do you have trouble with day-to-day activities such as bathing, preparing meals, shopping, managing finances, etc.?: Yes Are you currently unemployed and looking for a job?: I choose not to answer this question Are you interested in more education?: No Please select the resources that you would like help with: None Currently or been in a relationship where the following occur: I choose not to answer THRIVE Score: 0 AUDIT C Alcohol Use Questionnaire (AUDIT-C) 1. How often do you have a drink containing alcohol?: Never Total Score: 0 JAREN-7 AMB Questionnaire JAREN-7 Date JAREN - 7 assessed: 12/11/24 Feeling nervous, anxious, or on edge: 0 = Not at all Not being able to stop or control worryin = Not at all Worrying too much about different things: 0 = Not at all Trouble relaxin = Not at all Being so restless that it is hard to sit still: 0 = Not at all Becoming easily annoyed or irritable: 0 = Not at all Feeling afraid as if something awful might happen: 0 = Not at all Total JAREN-7 score (0-4 normal; 5-9 mild; 10-14 moderate; 15-21 severe): 0 Source: Developed by Drs. Ze Lopez, Catrina Locke, Abel Fields and colleagues, with an educational reji from [employer]. JAREN-7 Assessment Billing JAREN-7 Assessment Tool: JAREN-7 Assessment 81180 Physical exam (Primary Care) Vital Signs: Last Vital Signs Pulse 68 12/11/24 09:52 BP 132/78 12/11/24 09:52 Pulse Ox 98 12/11/24 09:52 Oxygen Delivery Method Room Air 12/11/24 09:52 BMI result Body Mass Index 32.9 Tobacco/Smoking Status: Tobacco use Status Tobacco use date assessed 12/11/24 12/11/24 09:57 Patient Tobacco Use Status Former Tobacco user 12/11/24 09:57 Tobacco use type Cigarette 12/11/24 09:57 e-Cigarette/Vaping Use Never Used 12/11/24 09:57 PHQ-9: PHQ-9 Score PHQ-9: Total score 0 12/11/24 10:04 Depression Screening Interpretation: Negative Thrive Assessment: Date of Thrive Assessment Date Thrive assessed 12/11/24 12/11/24 09:57 Currently or been in a relationship where the following occur: I choose not to answer Const General: alert; No acute distress Eyes Conjunctivae: conjunctivae normal Resp Auscultation: clear to auscultation bilaterally Cardio Rate: regular rate Rhythm: regular rhythm GI Inspection: Yes normal to inspection Extrem General: Yes normal to inspection and No edema Coding Level of Care Code Est Pt Level 4 (19635) Complex EM visit Add On G2211 Diagnoses Obesity (BMI 30-39.9) E66.9 Mild intermittent asthma without complication J45.20 Asthma complication type: uncomplicated Asthma persistence: intermittent Asthma severity: mild Tubular adenoma of colon D12.6 Impaired fasting blood sugar R73.01 Chronic urticaria L50.8 Anemia of chronic disease D63.8 Postlaminectomy syndrome, cervical M96.1 Fatty liver K76.0 Additional Codes JAREN-7 Assessment Billing - JAREN-7 Assessment Tool: JAREN-7 Assessment 00465 ([id number]) PHQ-9 - 40069 - PHQ-9 Billing: Yes ([id number]) Assessment & Plan Assessment & Plan (1) Obesity (BMI 30-39.9): Code(s): E66.9 - Obesity, unspecified Category: Medical Plan: Diet and exercise (2) Asthma: Code(s): J45.909 - Unspecified asthma, uncomplicated Category: Medical Qualifiers: Asthma complication type: uncomplicated Asthma persistence: intermittent Asthma severity: mild Qualified Code(s): J45.20 - Mild intermittent asthma, uncomplicated Plan: Patient on Symbicort and albuterol as needed (3) Tubular adenoma of colon: Comment: June 2019 Code(s): D12.6 - Benign neoplasm of colon, unspecified Category: Medical Plan: Patient is reminded about colonoscopy patient is due (4) Impaired fasting blood sugar: Code(s): R73.01 - Impaired fasting glucose Category: Medical Plan: Decrease the amount of carbohydrate intake, pasta, bread, rice and potatoes are all sugar and that is aside from all the sweet stuff, remember that fruits are good but they are Sweet also. (5) Chronic urticaria: Code(s): L50.8 - Other urticaria Category: Medical Plan: Patient has seen the education faculty member and placed on loratadine, cetirizine and montelukast. Recently started on Xolair. As per patient due to the xolair working was advised to stop the other allergy med (6) Anemia of chronic disease: Code(s): D63.8 - Anemia in other chronic diseases classified elsewhere Category: Medical Plan: Continuing to monitor (7) Postlaminectomy syndrome, cervical: Code(s): M96.1 - Postlaminectomy syndrome, not elsewhere classified Category: Medical Plan: Narcotic pain meds: Is being prescribed with the understanding that these medications are potentially addictive and should be used only when absolutely necessary and must always be secured. Any remaining pills should be safely disposed off appropriately. Patient is advised that narcotics can impaired judgment and one should not drive or operate heavy machinery while taking these medications. Never share these medications with anybody and do not leave them unattended. They will not be replaced under any circumstances. (8) Fatty liver: Code(s): K76.0 - Fatty (change of) liver, not elsewhere classified Category: Medical Plan: Low-fat diet and exercise Plan History of Present Illness The patient is a 59-year-old male presenting with follow-up for multiple chronic conditions and health maintenance. He suffers from essential hypertension, asthma, and idiopathic urticaria. For the past two years, the patient has experienced chronic hives, treated with antihistamines and montelukast. Initiation of Xolair (omalizumab) injections has recently been undertaken. Asthmatic symptoms are controlled with Symbicort and occasional use of albuterol. Medical history includes tubular adenoma noted in a 2019 colonoscopy, with a recommended repeat schedule overdue. Current clinical priorities include blood glucose and liver function monitoring, with the last documented A1c at 6.1. Anemia of chronic disease is managed, and mild anemia noted in last year's labs. The patient reports stable cerebricalgia, managed currently with narcotic pain medication. His weight management is essential given the observed increase to 210 lbs. Recommendations for increased physical activity and a low-fat diet are in place, considering his hepatic steatosis and the presence of obesity. Health Maintenance - Colonoscopy is overdue since the last one in 2019 for tubular adenoma monitoring. - Weight management discussions; advised low-fat diet and regular exercise. - Liver function showed improvement on repeat tests. - Monitoring of blood glucose levels; previous Hemoglobin A1c at 6.1. - Recommended follow-up in approximately three months. - Blood work requests for fasting lipid profile. Social History - Engaged in regular use of Symbicort for asthma management. - Recent weight gain noted post-vacation; weight increased to 210 lbs. - Discussed the importance of exercise and a low-fat diet. - Use of narcotic pain medications for cerebricalgia management. Review of Systems - Respiratory: Reports controlled asthma symptoms with current medications. - Cardiovascular: Denies chest pain or palpitations. - Gastrointestinal: Denies changes in bowel habits or constipation. - Genitourinary: Denies dysuria or urinary issues. - Dermatologic: Reports chronic hives and idiopathic urticaria. - General: Reports weight gain; denies fatigue. Physical Exam Results - Labs: Previous Hemoglobin A1c was 6.1, mild anemia noted, B12 and cholesterol within normal limits. - Last colonoscopy noted tubular adenoma in 2019 with follow-up due. Plan 1. 1. It remains crucial to ensure repeat colonoscopy given patient history and graduation to high screens in time. Blood testing panels are in place to appraise glucose and lipid levels, facilitating targeted medical adjustments.: Patient was informed and verbally consented to the use of an ambient scribe for clinic note documentation during this visit. Discussion Notes During the consultation, I advised the patient regarding his existing chronic conditions management, including essential hypertension, asthma, and idiopathic urticaria. The introduction of Xolair injections sharma an upgrade in urticaria care, with consensus regarding its benefits in limiting outbreak disturbances. Weight management through balanced nutrition and physical activity was extensively discussed, given the observed gain and its implications on hepatic steatosis and overall health metrics, particularly concerning glucose and cholesterol control. The patient was informed about the necessity of repeated testing for confirmed tubular adenoma. We also agreed on periodic evaluations in roughly three months to discuss improvements and necessary changes in the medical and management scopes. Patient Instructions - Continue current medication regimen as prescribed. - Start Xolair injections as directed. - Maintain a low-fat diet and engage in regular exercise. - Schedule follow-up colonoscopy as it is overdue. - Obtain fasting blood work as requested. - Return for follow-up in three months or sooner if symptoms worsen. - Monitor blood pressure and glucose levels regularly. Orders: Orders Comprehensive Met. Panel Today R73.01 - Impaired fasting glucose Free T4 (Free Thyroxine) Today R73.01 - Impaired fasting glucose Thyroid Stimulating Hormone Today R73.01 - Impaired fasting glucose Prostate Specific Antigen Scr Today R73.01 - Impaired fasting glucose Hemoglobin A1c Today R73.01 - Impaired fasting glucose Complete Blood Count Auto Diff Today R73.01 - Impaired fasting glucose Ferritin Today R73.01 - Impaired fasting glucose Reticulocyte Count Today R73.01 - Impaired fasting glucose Lipid Panel Today E78.00 - Pure hypercholesterolemia, unspecified, R73.01 - Impaired fasting glucose Vitamin B12 and Folate Today R73.01 - Impaired fasting glucose
== END 2024-12-11 10:13 | disposition home or self-care (01) ==
LOC: HO.HMCH 09:41
PROVIDERS: PCP Internal Medicine; Visit Provider Internal Medicine
DX: J45.20 Mild intermittent asthma, uncomplicated (principal); E66.9 Obesity, unspecified; Z68.32 Body mass index [BMI] 32.0-32.9, adult; D12.6 Benign neoplasm of colon, unspecified; R73.01 Impaired fasting glucose; L50.8 Other urticaria; D63.8 Anemia in other chronic diseases classified elsewhere; M96.1 Postlaminectomy syndrome, not elsewhere classified; K76.0 Fatty (change of) liver, not elsewhere classified

== ENCOUNTER → 2024-12-11 09:41 | Outpatient (BNVA) | payer OTHER, SELFPAY | PROVIDERS: PCP Internal Medicine; Visit Provider Internal Medicine | DX: M96.1 Postlaminectomy syndrome, not elsewhere classified (principal); E66.9 Obesity, unspecified; Z68.32 Body mass index [BMI] 32.0-32.9, adult; J45.20 Mild intermittent asthma, uncomplicated; R73.01 Impaired fasting glucose; L50.8 Other urticaria; D63.8 Anemia in other chronic diseases classified elsewhere; K76.0 Fatty (change of) liver, not elsewhere classified; Z79.891 Long term (current) use of opiate analgesic; Z86.0101 Personal history of adenomatous and serrated colon polyps | CPT/HCPCS: 96127; 99212 ==

== ENCOUNTER 2025-01-14 06:10 | Outpatient (REF) | payer OTHER, SELFPAY ==
--- OUTSIDE RECORDS SUMMARY | 2025-01-14 06:13 | XMS_ITS ---
Author Organization [facility] Address [address] [place] [address] Care Team Providers Care Top Tile Decorator Name Role Phone Arash Gerard MD Primary Care Provider Ze Martinez [phone] REASON FOR VISIT Patient presents today for a COLON SCREENING Encounters Encounter Location Date Provider Diagnosis [facility] [address] [place] [address] 10/22/2024 Ze Powers Plan Of Treatment Next Appt Details Provider Name:Ze Powers , 04/01/2025 11:00:00 AM, [address], [address], [place], [address], Progress Notes * VOGEL JULIO C HEREDIA JrDOB :1965 (59 yo M)Acc No.[id number]:10/22/2024 Progress Notes Patient:?LUCILA TEE Jr Provider:?Ze Powers MD :1965???Age:59 Y???Sex:Male Akil e:10/22/2024 Address:[address], [place] Pcp:Arash Gerard MD Subjective: * Chief Complaints: * ???1. Patient presents today for a COLON SCREENING. * Medical History:? Objective: * Vitals:? Assessment: Plan: * Treatment: * * The named appointment provid er may or may not be the originator of this progress note, and it is not deemed complete until electronically signed by the appointment provider. Sign off status: Pending * Provider:?Ze Powers MD Date:? 025 Generated for Gaye patiño/Catalina/Hannah on:?01/14/2025 06:13 AM EDT
[2025-01-14 06:21] LABS: MANUAL DIFF FLAG NO
[2025-01-14 07:18] LABS: Basophils Absolute Auto 0.1 X10*3/uL (0.0-0.2); Eosinophils Absolute Auto 0.2 X10*3/uL (0.0-0.4); Eosinophils Percent Auto 3.6 % (0-4); Hematocrit 40.4 % (42.0-52.0); Imm Gran Abs Auto 0.01 X10*3/uL (0.00-0.03); Imm Gran Pct Auto 0.2 % (0.0-0.4); Immature Retic Fraction 8.7 % (2.3-13.4); Lymphocytes Absolute Auto 2.7 X10*3/uL (1.2-4.9); Lymphocytes Percent Auto 43.3 % (20-40); Mean Corpuscular HGB Conc 32.2 g/dl (31.0-36.0); Mean Corpuscular Hemoglobin 27.1 pg (27.0-33.0); Mean Corpuscular Volume 84.2 fL (80.0-98.0); Mean Platelet Volume 9.7 fL (9.4-12.4); Monocytes Absolute Auto 0.5 X10*3/uL (0.1-1.2); Monocytes Percent Auto 8.3 % (2-11); Neutrophils Absolute Auto 2.7 x10*3/uL (2.0-8.3); Neutrophils Percent Auto 43.6 % (45-73); Platelet Count 228 X10*3/uL (160-400); Red Cell Distribution Width 14.4 % (11.0-16.0); Reticulocyte Percent 0.8 % (0.5-1.8); White Blood Count 6.2 X10*3/uL (4.8-10.8)
[2025-01-14 07:25] LABS: Estimated Average Glucose 128 mg/dL; Hemoglobin A1C 148.3348 umol/L; Hemoglobin A1c % 6.1 % (<6.0)
[2025-01-14 07:45] LABS: Alanine Aminotransferase 28 U/L (0-40); Albumin Level 4.4 g/dL (3.5-5.0); Alkaline Phosphatase 44 U/L (39-117); Anion Gap 14 (12-20); Aspartate Amino Transferase 27 U/L (5-37); Bilirubin Total 0.3 mg/dL (0.0-1.0); Blood Urea Nitrogen 16 mg/dL (9-16); Calcium 9.1 mg/dL (8.4-10.2); Carbon Dioxide 24 mmol/L (22-29); Chloride 110 mmol/L (96-108); Cholesterol 162 mg/dL (<200); Estimated Glomerular Filt Rate > 60; Glucose Random 108 mg/dL (60-115); HDL Cholesterol 57 mg/dL (>40); LDL Cholesterol Calculated 93 mg/dL (<100); Potassium 4.3 mmol/L (3.3-5.1); Sodium 144 mmol/L (135-145); Triglycerides 64 mg/dL (<150)
[2025-01-14 08:15] LABS: Folate 13.5 ng/mL (> or = 4.0); Prostate Specific Antigen Scr 0.42 ng/mL (<0.05-4.0); Vitamin B12 567 pg/mL (200-900)
[2025-01-14 08:20] LABS: HBc Num1 0.05 S/CO (0.00-0.79); HBsAGNum1 0.29 S/CO (0.00-0.99); Hepatitis B Core Antibody Nonreactive (Nonreactive); Hepatitis B Surface Antigen Negative (Negative); ~HepC Num1 0.16 S/CO (0.00-0.79); ~Hepatitis B Surface Antibody NONREACTIVE (Nonreactive); ~Hepatitis C Antibody Nonreactive (Nonreactive)
[2025-01-14 08:21] LABS: Ferritin 61 ng/mL (20-250); Free T4 (Free Thyroxine) 0.91 ng/dL (0.71-1.85); Thyroid Stimulating Hormone 1.22 uIU/mL (0.32-4.0)
== END 2025-01-14 06:11 | disposition home or self-care (01) ==
LOC: HO.LAB 06:10
PROVIDERS: PCP Internal Medicine; Visit Provider Internal Medicine
DX: R73.01 Impaired fasting glucose (principal); R79.89 Other specified abnormal findings of blood chemistry; E78.00 Pure hypercholesterolemia, unspecified
CPT/HCPCS: 36415; 80053; 80061; 82607; 82728; 82746; 83036; 84153; 84439; 84443; 85025; 85045; 86704; 86706; 86803; 87340

== ENCOUNTER 2025-06-18 11:28 | Outpatient (AMB) | payer OTHER, SELFPAY ==
--- OUTSIDE RECORDS SUMMARY | 2024-01-30 06:20 | XMS_ITS ---
Author Organization [facility] Address [address] [place] [phone] Care Team Providers Care Rn Acute Dialysis Name Role Phone Arash Gerard MD Primary Care Provider Ze Martinez [phone] REASON FOR VISIT Patient presents today for a COLON SCREENING Encounters Encounter Location Date Provider Diagnosis [facility] [address] [place] [phone] 01/30/2024 Ze Powers Plan Of Treatment Next Appt Details Provider Name:Ze Powers , 07/07/2025 08:40:00 AM, [address] [place] [address] , [place], [place], [phone], Progress Notes * JULIO C TEE JrDOB :1965 (60 yo M)Acc No.[id number]:01/30/2024 Progress Notes Patient: JULIO C BONE Jr Provider: Mike Powers MD :1965 A ge:58 Y S ex:Male Date:01/30/2024 Address:[address] [id number] Pcp:Arash Gerard MD Subjective: * Chief Complaints: [...] 01/30/2024 Generated for Gaye patiño/Catalina/Hannah on: 1 01:09 PM EDT
--- OUTSIDE RECORDS SUMMARY | 2024-06-03 10:40 | XMS_ITS ---
Author Organization [facility] Address [address] [place] [id number] Care Team Providers Care Animal Treatment Investigator Name Role Phone Arash Gerard MD Primary Care Provider Ze Martinez [phone] REASON FOR VISIT Patient presents today for a COLON SCREENING Encounters Encounter Location Date Provider Diagnosis [facility] [address] [place] [phone] 06/03/2024 Ze Powers Plan Of Treatment Next Appt Details Provider Name:Ze Powers , 07/07/2025 08:40:00 AM, [address] [place] [address] , [place], [place], [phone], Progress Notes * JULIO C TEE JrDOB :1965 (60 yo M)Acc No.[id number]:06/03/2024 Progress Notes Patient: JULIO C BONE Jr Provider: Mike Powers MD :1965 A ge:59 Y S ex:Male Date:06/03/2024 Address:[address] [id number] Pcp:Arash Gerard MD Subjective: * Chief Complaints: [...] Date: 1 Generated for Gaye patiño/Catalina/Hannah on: 01:08 PM EDT
--- OUTSIDE RECORDS SUMMARY | 2024-10-22 06:00 | XMS_ITS ---
Author Organization [facility] Address [address] [place] [phone] Care Team Providers Care Cook Cashier Food Prep Name Role Phone Arash Gerard MD Primary Care Provider Ze Martinez [phone] REASON FOR VISIT Patient presents today for a COLON SCREENING Encounters Encounter Location Date Provider Diagnosis [facility] [address] [facility] [address] [place] [phone] 10/22/2024 Ze Powers Plan Of Treatment Next Appt Details Provider Name:Ze Powers , 07/07/2025 08:40:00 AM, [address] [place] [address] , [place], [place], [phone], Progress Notes * JULIO C TEE JrDOB :1965 (60 yo M)Acc No.[id number]:10/22/2024 Progress Notes Patient: JULIO C BONE Jr Provider: Mike Powers MD :1965 A ge:59 Y S ex:Male Date:10/22/2024 Address:[address] [id number] Pcp:Arash Gerard MD Subjective: * Chief Complaints: [...] 10/22/2024 Generated for Gaye patiño/Catalina/Hannah on: 1 01:09 PM EDT
[2025-06-18 11:40] VITALS: BP 128/66; PULSE 67; O2SAT 98; BMI 34.2
--- NOTE | 2025-06-18 11:40 | MHC.PC.OV ---
Vital Signs 06/18/25 11:40 Height 5 ft 7 in Weight 218 lb 8 oz BMI 34.2 BP 128/66 Blood Pressure Location Lt brachial Position Sitting Pulse 67 Pulse Source Pulse Oximeter Pulse Oximetry (%) 98 Oxygen Delivery Method Room Air Intake Visit Reasons: Annual P[employer] Supervisor Required: No Accompanied by: Self / Same As Patient Allergies lisinopril Adverse Reaction (Intermediate, Verified 06/18/25 11:40) dryness of throat Medication List - Last Reconciled 06/18/25 by Arash Gerard MD albuterol sulfate 90 mcg/actuation (Ventolin HFA) 2 puffs inhalation Q6H PRN blood pressure monitor (Blood Pressure Kit) As directed budesonide-formoterol 80-4.5 mcg/actuation (Symbicort) 2 puffs inhalation BID 30 days omalizumab (Xolair) 75 mg subcut Q4W oxycodone-acetaminophen 5-325 mg 1 tab PO Q6H PRN 28 days Tobacco use date assessed: 06/18/25 Dental Screening Dental Screen Date: 06/18/25 Did you have a dental visit in the last 12 months?: Yes Did you have a dental problem in the last 6 months where you did not have access to dental care?: No Was dental information given to patient?: Patient has dentist HPI Annual P.E HPI Details [facility] Allergy 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 Luna, Orthopedics in [facility] [place]. L ear decrease hearing- tested already [facility] Medical History (Updated 06/18/25 @ 12:03 by Arash Gerard MD) Blood pressure elevated without history of HTN Carpal tunnel syndrome of right wrist Tubular adenoma of colon Ulnar nerve entrapment Obesity (BMI 30-39.9) Asthma Cervicalgia Surgical History H/O shoulder surgery H/O hand surgery Hx of colonoscopy History of neck surgery Family History (Updated 06/18/25 @ 11:57 by Arash Gerard MD) Father Cancer Diabetes Hypertension Mother Hypertension CVD (cardiovascular disease) Sister Breast cancer Social History Housing: Apartment Are you a primary personal care home administrator to a significant other at home: No Do you presently have visiting nurse or other home services: No Alcohol intake: never Patient Tobacco Use Status: Former Tobacco user Tobacco use type: Cigarette Years Smoked: 1994 e-Cigarette/Vaping Use: Never Used Second Hand Smoke Exposure: No service: No Current occupational status: disabled Cognitive needs: No Hearing needs: No Vision needs: No Questionnaire Thrive Questionnaire Date Thrive assessed: 12/11/24 I am a: Patient What is your living situation today?: I have a steady place to live Within the past 12 months, did the food you bought not last and you didn't have the money to get more?: I choose not to answer this question Within the past 12 months, did you worry whether your food would run out before you got money to buy more?: I choose not to answer this question Do you have trouble paying for medicines?: No Do you have trouble getting transportation to medical appointments?: No Do you have trouble paying your heating and electricity bill?: No Do you have trouble taking care of your child, family member or friend?: No Do you have trouble with day-to-day activities such as bathing, preparing meals, shopping, managing finances, etc.?: Yes Are you currently unemployed and looking for a job?: I choose not to answer this question Are you interested in more education?: No Please select the resources that you would like help with: None Currently or been in a relationship where the following occur: I choose not to answer THRIVE Score: 0 AUDIT C Alcohol Use Questionnaire (AUDIT-C) 1. How often do you have a drink containing alcohol?: Never 3. How often do you have six or more drinks on one occasion?: Never Total Score: 0 JAREN-7 AMB Questionnaire JAREN-7 Date JAREN - 7 assessed: 12/11/24 Source: Developed by Drs. Ze Lopez, Catrina Locke, Abel Fields and colleagues, with an educational reji from [email or web address]. Review of Systems Const Denies poor appetite and Denies weakness Eyes Denies no additional complaints ENT Reports Normal hearing present, Denies dizziness, Denies nasal congestion, Denies tinnitus and Denies sore throat Card Denies chest pain, Denies syncope, Denies rapid heart rate and Denies dyspnea Resp Denies cough and Denies dyspnea GI Denies change in stool character, Reports constipation, Denies diarrhea, Denies nausea and Denies vomiting Denies dysuria and Denies urinary frequency Neuro Reports Normal hearing present, Denies confusion, Denies dizziness, Denies syncope and Denies weakness Psych Denies confusion Physical exam (Primary Care) Vital Signs: Last Vital Signs Pulse 67 06/18/25 11:40 BP 128/66 06/18/25 11:40 Pulse Ox 98 06/18/25 11:40 Oxygen Delivery Method Room Air 06/18/25 11:40 BMI result Body Mass Index 34.2 Tobacco/Smoking Status: Tobacco use Status Tobacco use date assessed 06/18/25 06/18/25 11:41 Patient Tobacco Use Status Former Tobacco user 06/18/25 11:41 Tobacco use type Cigarette 06/18/25 11:41 e-Cigarette/Vaping Use Never Used 06/18/25 11:41 Thrive Assessment: Date of Thrive Assessment Date Thrive assessed 12/11/24 06/18/25 11:41 Currently or been in a relationship where the following occur: I choose not to answer Const General: alert and awake; No confusion Orientation/consciousness: No confusion HENMT Head: Yes normocephalic Ears: external ears normal and TM's normal bilaterally Face and sinus: Yes normal facial exam Mouth: moist mucous membranes Throat: Yes tonsils normal Eyes Conjunctivae: conjunctivae normal Pupils: Equal, round and reactive pupils present and Pupil accommodation reflex normal Direct Ophthalmoscopy: normal light reflex Neck Neck: No lymphadenopathy Thyroid: Thyroid normal Chest Chest palpation & inspection: normal inspection of the chest Resp Effort & Inspection: normal respiratory effort and no audible wheezes Auscultation: clear to auscultation bilaterally, no crackles, no wheezes and lung sounds not diminished Cardio Rate: regular rate Rhythm: regular rhythm Peripheral pulses: radial pulses present and dorsalis pedis present GI Other: colon test 06/2025 Palpation (GI): no masses Auscultation: normal bowel sounds and normoactive bowel sounds Rectal Exam - Male: Yes deferred Male General Exam: Yes normal external exam Skin General skin exam: no rashes or lesions noted Rashes: no rashes Neuro General: deep tendon reflexes 2+ bilaterally and No confusion Cranial nerves: Yes Equal, round and reactive pupils present, Yes Midline tongue present, Yes Normal hearing present and Yes Ability to bilaterally elevate shoulders present Cognition (Neuro): normal cognition Gait exam (Neuro): Normal gait present Motor exam (neuro): 5/5 motor strength present throughout Deep tendon reflexes (DTR's): Right brachioradialis reflex intensity grade: 2+, Left brachioradialis reflex intensity grade: 2+, Right patellar reflex intensity grade: 2+ and Left patellar reflex intensity grade: 2+ Extrem General: No edema Coding Level of Care Code Est Pt Prev Care 40-64y(87448) Diagnoses Annual physical exam Z00.00 Hypertension I10 Impaired fasting blood sugar R73.01 Obesity (BMI 30-39.9) E66.9 Fatty liver K76.0 Tubular adenoma of colon D12.6 Anemia of chronic disease D63.8 Spondylosis of cervical region without myelopathy or radiculopathy M47.812 Idiopathic urticaria L50.1 Shoulder pain, right M25.511 Assessment & Plan Assessment & Plan (1) Annual physical exam: Code(s): Z00.00 - Encounter for general adult medical examination without abnormal findings Category: Medical Plan: Patient is advised to eat healthy, keep well hydrated, keep active and have adequate sleep. (2) Hypertension: Comment: Good BP at home. Code(s): I10 - Essential (primary) hypertension Category: Medical Plan: Blood pressure has been good at home (3) Impaired fasting blood sugar: Code(s): R73.01 - Impaired fasting glucose Category: Medical Plan: Decrease the amount of carbohydrate intake, pasta, bread, rice and potatoes are all sugar and that is aside from all the sweet stuff, remember that fruits are good but they are Sweet also. (4) Obesity (BMI 30-39.9): Code(s): E66.9 - Obesity, unspecified Category: Medical Plan: Diet and exercise (5) Fatty liver: Code(s): K76.0 - Fatty (change of) liver, not elsewhere classified Category: Medical Plan: Low-fat diet and exercise (6) Tubular adenoma of colon: Comment: June 2019 Code(s): D12.6 - Benign neoplasm of colon, unspecified Category: Medical Plan: Patient has a scheduled colonoscopy June 2025 (7) Anemia of chronic disease: Code(s): D63.8 - Anemia in other chronic diseases classified elsewhere Category: Medical Plan: Continue to monitor (8) Spondylosis of cervical region without myelopathy or radiculopathy: Code(s): M47.812 - Spondylosis without myelopathy or radiculopathy, cervical region Category: Medical Plan: Narcotic pain meds: Is being prescribed with the understanding that these medications are potentially addictive and should be used only when absolutely necessary and must always be secured. Any remaining pills should be safely disposed off appropriately. Patient is advised that narcotics can impaired judgment and one should not drive or operate heavy machinery while taking these medications. Never share these medications with anybody and do not leave them unattended. They will not be replaced under any circumstances. (9) Idiopathic urticaria: Code(s): L50.1 - Idiopathic urticaria Category: Medical Plan: Patient has been given Xolair seeing Allergy and immunology and is on Symbicort (10) Shoulder pain, right: Code(s): M25.511 - Pain in right shoulder Category: Medical Plan History of Present Illness The patient is a 60-year-old obese male presenting for a follow-up visit for management of multiple chronic conditions and a wellness check. He has a history of tubular adenoma of the colon with his last colonoscopy performed in 2018; his next colonoscopy is scheduled for June 2025. He reports occasional heartburn after eating certain foods. The patient has a history of cervicalgia and cervical postlaminectomy syndrome, for which he is on narcotic pain medication and follows with pain management. His history includes chronic asthma, for which he uses Symbicort regularly and rinses his mouth afterward. He also has idiopathic urticaria, managed by an cte teacher, and receives monthly 75 mg Xolair injections, which effectively control his symptoms. He has a known allergy to lisinopril, which caused a dry throat and cough. Cardiovascular and metabolic history are significant for hypertension, with good home blood pressure readings, and stable anemia of chronic disease. Recent labs show prediabetes with a hemoglobin A1c of 6.1% and a fasting blood sugar of 108 mg/dL, and well-controlled cholesterol with an LDL of 93 mg/dL. The patient has gained approximately 10 pounds since June of last year. Other medical history includes hepatic stenosis, for which he sees a gastroenterology specialist, and hearing loss which is worse in one ear, for which a hearing aid was not recommended. He uses glasses for reading. Family history is notable for a father with an unknown type of cancer and a sister with breast cancer. His mother had heart problems, but there is no other family history of heart attack or stroke. The patient does not drink alcohol, has quit smoking, and denies any recreational drug use. Health Maintenance - Colonoscopy: Last performed in 2018, with the next one scheduled for June 2025. - Vaccinations: Tetanus is up to date. - Vaccination counseling: Discussed annual influenza vaccine, completing the two-dose shingles vaccine series, and the availability of the COVID-19 vaccine. - Diet and exercise: Counseled on adopting a low-fat diet, increasing physical activity, and reducing intake of carbohydrates (pasta, bread, rice, potatoes) due to prediabetes. - Weight management: Patient was advised against further weight gain, having gained 10 lbs since the previous year. - Screening labs: Recent labs show stable mild anemia, prediabetes (A1c 6.1%), well-controlled cholesterol (LDL 93), and normal kidney function, liver enzymes, PSA, B12, folic acid, and thyroid levels. - Vision: Patient uses reading glasses; last eye exam was 2-3 years ago. - Hearing: Previously had a hearing test which showed asymmetry, but no hearing aids were recommended. Social History - Alcohol use: Denies drinking alcohol. - Tobacco use: Reports he no longer smokes. - Illicit drug use: Denies use of recreational drugs, including marijuana. - Diet: Advised to follow a low-fat diet and reduce intake of carbohydrates such as pasta, bread, and rice. - Exercise: Advised to be more physically active. Review of Systems - Constitutional: Reports a 10-pound weight gain since last year. - HEENT: Vision: Reports needing glasses for reading and was told he needs them for dry eyes. - HEENT: Hearing: Reports hearing better in one ear than the other. - Cardiovascular: Denies chest pain or waking up short of breath. - Respiratory: Denies shortness of breath on exertion, including when climbing stairs. - Gastrointestinal: Reports occasional heartburn depending on diet. - Genitourinary: Reports nocturia once per night. - Musculoskeletal: Reports new right shoulder pain for one week, which is worse with lifting the arm. - All other systems reviewed and are negative. Physical Exam General: Cooperative, healthy appearing, comfortable, no acute distress, well developed, but noted to be obese. Orientation: Patient oriented x3 Limitations: No limitations Head: Normal to inspection Ears: Hearing test indicated hearing more through one ear than the other, but no recommendation for hearing aids. Nose: Normal external nose present Face and sinus: Normal facial exam Eyes: Appearance normal, both eyes and all related structures; uses glasses for reading. Neck: Normal visual inspection and Yes full ROM Respiratory: Normal respiratory effort and able to speak in complete sentences. Clear to auscultation bilaterally Cardiovascular: Regular rate and rhythm. Normal S1 and S2 GI: Normal to inspection. Soft to palpation and nontender Skin: No rashes or lesions noted Neuro: Patient oriented x3 Extremities: Normal to inspection; request for right shoulder x-ray due to pain when lifting. Results - Labs (from January 14): - CBC: Hemoglobin 13 g/dL and Hematocrit 40.4%, consistent with mild anemia. - Comprehensive Metabolic Panel: Electrolytes, renal function, and liver numbers are within normal limits. - Glucose: 108 mg/dL (fasting). - Hemoglobin A1c: 6.1%. - Lipid Panel: LDL cholesterol is 93 mg/dL. - PSA, Vitamin B12, Folic Acid, Thyroid function: All within normal limits. Plan Patient was informed and verbally consented to the use of an ambient scribe for clinic note documentation during this visit. 1. Right Shoulder Pain The patient reports a one-week history of right shoulder pain that worsens with arm lifting, with no known trauma. Examination reveals no redness or swelling, and the likely cause is tendinitis. A referral for a right shoulder X-ray will be placed to further evaluate. 2. Prediabetes Recent lab results show a hemoglobin A1c of 6.1% and a fasting blood sugar of 108 mg/dL, indicating prediabetes. The condition does not currently require medication. The patient was counseled on the importance of diet and exercise, specifically advising a reduction in carbohydrates such as pasta, bread, rice, and potatoes. We will continue to monitor his blood sugar levels. 3. Idiopathic Urticaria The patient's idiopathic urticaria is well-controlled with monthly 75 mg Xolair injections. He will continue his current treatment and follow up with Allergy and Immunology as needed. 4. Asthma The patient will continue to use his Symbicort inhaler regularly for his chronic asthma and was reminded to rinse his mouth after each use. 5. Anemia Of Chronic Disease His anemia is chronic and has been stable for multiple years. Recent labs confirm mild, stable anemia, and we will continue to monitor. 6. Wellness And Health Maintenance The patient's colonoscopy is scheduled for June 2025. We discussed vaccinations, and he was advised to get an annual flu shot and to complete the two-part shingles vaccine series if he has not already done so. He is up to date on his tetanus shot. I provided counseling on the importance of a healthy diet, hydration, physical activity, and managing his recent weight gain. Discussion Notes I reviewed the patient's recent lab results with him, explaining that his blood sugar and A1c levels place him in the prediabetic range. I emphasized the importance of diet and exercise to manage this, specifically advising him to reduce his intake of carbohydrates like pasta, bread, and rice. I addressed his 10-pound weight gain and cautioned him that excess weight could contribute to back and knee pain. Regarding his new right shoulder pain, I explained that it is likely due to an inflamed tendon and that I would order an X-ray to investigate further. We discussed his vaccination status, and I recommended an annual flu shot. I also advised him to check his pharmacy records to see if he completed the two-part shingles vaccine series and to get the second shot if needed, explaining that it helps prevent shingles. I reminded him that COVID-19 is still a risk, especially as the weather gets colder, and that a vaccine is available. Finally, I provided general health guidance, including staying active and hydrated, and instructed him to contact the office if any problems arise before his next appointment. Patient Instructions - We have ordered an X-ray for your right shoulder to look into the cause of your pain. - It is important to manage your diet to help with your blood sugar. - Try to eat less pasta, bread, rice, and potatoes. - Regular exercise and weight management are important, as extra weight can cause back and knee pain. - Continue to take your Symbicort inhaler for asthma as prescribed, and remember to rinse your mouth out after using it. - Keep your appointment for a colonoscopy in June 2025. - It is recommended that you get a flu shot every year. - Please check with your pharmacy to see if you have received both doses of the shingles vaccine. - Be careful, as COVID-19 is still spreading. - Please let us know if you have any new problems or if your symptoms get worse. Orders: Orders XR shoulder RT min 2V Today M25.968 - Pain in right shoulder
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
== END 2025-06-18 12:14 | disposition home or self-care (01) ==
LOC: HO.HMCH 11:29
PROVIDERS: PCP Internal Medicine; Visit Provider Internal Medicine
DX: Z00.00 Encounter for general adult medical examination without abnormal findings (principal); I10 Essential (primary) hypertension; E66.9 Obesity, unspecified; Z68.34 Body mass index [BMI] 34.0-34.9, adult; R73.01 Impaired fasting glucose; K76.0 Fatty (change of) liver, not elsewhere classified; D12.6 Benign neoplasm of colon, unspecified; D63.8 Anemia in other chronic diseases classified elsewhere; M47.812 Spondylosis without myelopathy or radiculopathy, cervical region; L50.1 Idiopathic urticaria; M25.511 Pain in right shoulder

== ENCOUNTER → 2025-06-18 11:28 | Outpatient (BNVA) | payer OTHER, SELFPAY | PROVIDERS: PCP Internal Medicine; Visit Provider Internal Medicine | DX: Z00.00 Encounter for general adult medical examination without abnormal findings (principal); I10 Essential (primary) hypertension; R73.01 Impaired fasting glucose; E66.9 Obesity, unspecified; K76.0 Fatty (change of) liver, not elsewhere classified; D12.6 Benign neoplasm of colon, unspecified; D63.8 Anemia in other chronic diseases classified elsewhere; M47.812 Spondylosis without myelopathy or radiculopathy, cervical region; L50.1 Idiopathic urticaria; M25.511 Pain in right shoulder; R73.03 Prediabetes; J45.909 Unspecified asthma, uncomplicated | CPT/HCPCS: 99396 ==

== ENCOUNTER 2025-06-24 06:28 | Outpatient (REF) | payer OTHER, SELFPAY ==
--- OUTSIDE RECORDS SUMMARY | 2024-01-30 05:20 | XMS_ITS ---
Author Organization [facility] Address [address] [place] [phone] Care Team Providers Care Press Operator [employer] Name Role Phone Arash Gerard MD Primary Care Provider eZ Martinez [phone] REASON FOR VISIT Patient presents today for a COLON SCREENING Encounters Encounter Location Date Provider Diagnosis [facility] [address] [place] [phone] 01/30/2024 Ze Powers Plan Of Treatment Next Appt Details Provider Name:Ze Powers , 07/07/2025 08:40:00 AM, [address] [place] [address] , [place], [place], [phone], Progress Notes * JULIO C TEE JrDOB :1965 (60 yo M)Acc No.[id number]:01/30/2024 Progress Notes Patient: JULIO C BONE Jr Provider: Mike Powers MD :1965 A ge:58 Y S ex:Male Date:01/30/2024 Address:[address] [id number] Pcp:Arash Gerard MD Subjective: * Chief Complaints: * 1 . Patient presents today for a COLON SCREENING. * Medical History: Objective: * Vitals: Assessment: Plan: * Treatment: * * The named appointment provid er may or may not be the originator of this progress note, and it is not deemed complete until electronically signed by the appointment provider. Sign off status: Pending * Provider: Mike Powers MD Date: 0 01/30/2024 Generated for Gaye patiño/Catalina/Hannah on: 1 08/24/2024 06:30 AM EST
--- OUTSIDE RECORDS SUMMARY | 2024-06-03 09:40 | XMS_ITS ---
Author Organization [facility] Address [address] [place] [id number] Care Team Providers Care Direct Support Professional Home Health Name Role Phone Arash Gerard MD Primary Care Provider Ze Martinze [phone] REASON FOR VISIT Patient presents today for a COLON SCREENING Encounters Encounter Location Date Provider Diagnosis [facility] [address] [place] [phone] 06/03/2024 Ze Powers Plan Of Treatment Next Appt Details Provider Name:Ze Powers , 07/07/2025 08:40:00 AM, [address] [place] [address] , [place], [place], [phone], Progress Notes * JULIO C TEE JrDOB :1965 (60 yo M)Acc No.[id number]:06/03/2024 Progress Notes Patient: JULIO C BONE Jr Provider: Mike Powers MD :1965 A ge:59 Y S ex:Male Date:06/03/2024 Address[place] [id number] Pcp:Arash Gerard MD Subjective: * Chief Complaints: [...] Pending * Provider: Mike Powers MD Date: 1 Generated for Gaye patiño/Catalina/Hannah on: 08/24/2024 06:30 AM EST
--- OUTSIDE RECORDS SUMMARY | 2024-10-22 05:00 | XMS_ITS ---
Author Organization [facility] Address [address] [place] [phone] Care Team Providers Care Band Instrument Repairer Name Role Phone Arash Gerard MD Primary Care Provider Ze Martinez [phone] REASON FOR VISIT Patient presents today for a COLON SCREENING Encounters Encounter Location Date Provider Diagnosis [facility] [address] [facility] [address] [place] [phone] 10/22/2024 Ze Powers Plan Of Treatment Next Appt Details Provider Name:Ze Powers , 07/07/2025 08:40:00 AM, [address] [place] [address] , [place], [place], [phone], Progress Notes * JULIO C TEE JrDOB :1965 (60 yo M)Acc No.[id number]:10/22/2024 Progress Notes Patient: JULIO C BONE Jr Provider: Mike Powers MD :1965 A ge:59 Y S ex:Male Date:10/22/2024 Address:[address] [id number] Pcp:Arash Gerard MD Subjective: * Chief Complaints: [...] * Provider: Mike Powers MD Date: 0 10/22/2024 Generated for Gaye patiño/Catalina/Hannah on: 1 08/24/2024 06:31 AM EST
--- NOTE | ~2025-06-24 | XR_ITS ---
EXAMINATION: XR SHOULDER 2 OR MORE VIEWS RIGHT HISTORY: M25.511 - Pain in right shoulder COMPARISON: Comparison is made with the prior examination dated 08/15/2017. FINDINGS: Four views of the right shoulder are submitted. Osseous mineralization is normal. There is no fracture or dislocation. The glenohumeral joint is maintained. A tiny osteophyte is again seen off the inferior glenoid. There is mild degenerative change of the AC joint. The soft tissues are unremarkable. XR/XR shoulder RT min 2V IMPRESSION: Degenerative changes of the right shoulder as described. Electronically signed by: Ze Martinez MD 06/24/2025 07:06 AM RIGO
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
== END 2025-06-24 06:29 | disposition home or self-care (01) ==
LOC: HO.XRAY 06:28
PROVIDERS: PCP Internal Medicine; Visit Provider Internal Medicine
DX: M25.511 Pain in right shoulder (principal)
CPT/HCPCS: 73030

== ENCOUNTER → 2025-06-24 06:32 | Outpatient (BNV) | payer OTHER, SELFPAY | PROVIDERS: PCP Internal Medicine; Visit Provider Radiology Diagnostic Radiology | DX: M19.011 Primary osteoarthritis, right shoulder (principal) | CPT/HCPCS: 73030 ==

== ENCOUNTER 2025-07-07 07:37 | Day surgery (SDC) | payer OTHER, SELFPAY ==
--- NOTE | 2025-07-05 10:16 | HO.ANESPROP2 ---
Documented by User: Gilda Rose NP 07/05/25 10:17 HPI - Anesthesia Eval Consult details Narrative: 60 yr old male for colonoscopy Chronic asthma dIiopathic urticaria: on xolair injections PMFSH Active Problems Active Problems: All Active Problems Shoulder pain, right (Acute) Idiopathic urticaria (Acute) Asymmetrical hearing loss (Acute) Hearing difficulty (Acute) Fatty liver (Acute) Liver nodule (Acute) LFT elevation (Acute) Spondylosis of cervical region without myelopathy or radiculopathy (Acute) Degeneration, intervertebral disc, cervical (Acute) Postlaminectomy syndrome, cervical (Acute) Vision changes (Acute) Impacted cerumen of left ear (Acute) Anemia of chronic disease (Acute) Hypertension (Acute) Chronic urticaria (Acute) Eczema (Acute) Allergic reaction (Acute) Epididymitis (Acute) Internal derangement of left shoulder (Acute) Rotator cuff tear, left (Acute) Annual physical exam (Acute) Impaired fasting blood sugar (Acute) Ulnar nerve entrapment (Acute) Tubular adenoma of colon (Acute) Obesity (BMI 30-39.9) (Acute) Asthma (Acute) Cervicalgia (Acute) Past Medical History Medical History Pre-diabetes Fatty liver Carpal tunnel syndrome of right wrist Tubular adenoma of colon Ulnar nerve entrapment Obesity (BMI 30-39.9) Asthma Cervicalgia Family History Family History Father Cancer Diabetes Hypertension Mother Hypertension CVD (cardiovascular disease) Sister Breast cancer Family history of problems with anesthesia: No Surgical History Surgical History H/O shoulder surgery H/O hand surgery Hx of colonoscopy History of neck surgery History of Problems with Anesthesia: No Social History Social History Housing: Apartment Are you a primary childcare teacher to a significant other at home: No Do you presently have visiting nurse or other home services: No Alcohol intake: never Patient Tobacco Use Status: Former Tobacco user Tobacco use type: Cigarette Years Smoked: 1994 e-Cigarette/Vaping Use: Never Used Second Hand Smoke Exposure: No Have you been hit, kicked, punched, or otherwise hurt by someone within the past year? If so, by whom?: No Are you DNR?: No Advance Directives: No Advance Directives Information Provided: Yes service: No Current occupational status: disabled Cognitive needs: No Hearing needs: No Vision needs: No Meds Allergies Allergy/AdvReac Type Severity Reaction Status Date / Time lisinopril AdvReac Intermediate dryness of Verified 06/18/25 11:40 throat Home Medications ?Medication ?Instructions ?Recorded ?Confirmed ?Last Taken ?Type albuterol sulfate 90 mcg/actuation 2 puff inhalation Q6H PRN 10/11/22 07/05/25 Unknown History aerosol inhaler (Ventolin HFA) Shortness Of Breath Or Wheezing omalizumab 75 mg/0.5 mL 75 mg subcut Q4W 06/18/25 07/05/25 Unknown History subcutaneous auto-injector (Xolair) Assessment and Plan Final Anesthetic Review Family History of Problems with Anesthesia: No History of Problems with Anesthesia: No Documented by User: Ulysses Hodge MD 07/07/25 08:26 [facility] Past Medical History Medical History Pre-diabetes Fatty liver Carpal tunnel syndrome of right wrist Tubular adenoma of colon Ulnar nerve entrapment Obesity (BMI 30-39.9) Asthma Cervicalgia Functional capacity: independent ambulation Family History Family History Father Cancer Diabetes Hypertension Mother Hypertension CVD (cardiovascular disease) Sister Breast cancer Surgical History Surgical History H/O shoulder surgery H/O hand surgery Hx of colonoscopy History of neck surgery Social History Social History Housing: Apartment Are you a primary childcare teacher to a significant other at home: No Do you presently have visiting nurse or other home services: No Alcohol intake: never Patient Tobacco Use Status: Former Tobacco user Tobacco use type: Cigarette Years Smoked: 1994 e-Cigarette/Vaping Use: Never Used Second Hand Smoke Exposure: No Have you been hit, kicked, punched, or otherwise hurt by someone within the past year? If so, by whom?: No Are you DNR?: No Advance Directives: No Advance Directives Information Provided: Yes service: No Current occupational status: disabled Cognitive needs: No Hearing needs: No Vision needs: No Meds Allergies Allergy/AdvReac Type Severity Reaction Status Date / Time lisinopril AdvReac Intermediate dryness of Verified 06/18/25 11:40 throat Home Medications ?Medication ?Instructions ?Recorded ?Confirmed ?Last Taken ?Type albuterol sulfate 90 mcg/actuation 2 puff inhalation Q6H PRN 10/11/22 07/05/25 Unknown History aerosol inhaler (Ventolin HFA) Shortness Of Breath Or Wheezing omalizumab 75 mg/0.5 mL 75 mg subcut Q4W 06/18/25 07/05/25 Unknown History subcutaneous auto-injector (Xolair) Exam Exam Date and Time: 07/07/26 Airway Mallampati Class: II TM Dist: >3cm Neck ROM: Limited Partial: Lower Loose/Missing/Broken Teeth: No (many missing teeth) Heart: rr Lungs: clear Other: normal Assessment and Plan Assessment Anesthesia Assessment: Anesthesia Plan Discussed Final Anesthetic Review NPO: Yes ASA Class: II Final Preanesthetic Review: No Changes in Pt Med Stat, Meds/Allgs Chart Reviewed, Consent Obtained/Reviewed and Anes Risks/Benef Reviewed Patient Risk: Low Procedure Risk: Low Anesthetic Plan Anesthetic Plan: MAC: Disposition: Standard PACU
[2025-07-05 14:12] VITALS: BMI 33.2
[2025-07-07 07:41] VITALS: BP 135/84; PULSE 64; RESP 20; TEMP 36.4; O2SAT 97; BMI 32.9
[2025-07-07] MEDS: Lactated Ringers 1,000 ML 100 ML IVCONT (08:03)
[2025-07-07 09:38] VITALS: BP 111/65; PULSE 70; RESP 15; TEMP 36.6; O2SAT 96
--- NOTE | 2025-07-07 09:41 | PM.OP ---
Brief Operative Note Date of Service: 07/07/25 Pre-op diagnosis: Screening Post-op diagnosis: other (Diverticulosis, Limited prep) Procedure: Colonoscopy to the cecum Surgeon: Ze Powers MD Anesthesia: MAC Was an Leadership Program Associate used for this Procedure?: No Estimated blood loss (mL): 0 Pathology: none sent Condition: stable Disposition: PACU
[2025-07-07 09:53] VITALS: BP 121/64; PULSE 68; RESP 15; O2SAT 98
[2025-07-07 10:07] VITALS: BP 142/83; PULSE 70; RESP 16; TEMP 36.7; O2SAT 98
--- NOTE | 2025-07-07 10:15 | OP_ITS ---
DATE OF SERVICE: 07/07/2025 SURGEON: Ze Powers MD INDICATIONS: The patient presents for evaluation of personal history of tubular adenoma of the colon and need for colorectal cancer screening. Full consent has been obtained from him for this, including risks of bleeding and perforation. PREOPERATIVE DIAGNOSIS: POSTOPERATIVE DIAGNOSIS: PROCEDURE PERFORMED: Colonoscopy to the cecum. ESTIMATED BLOOD LOSS: COMPLICATIONS: ANESTHESIA: Medication used, monitored anesthesia care. ASSISTANTS: SPECIMENS: PREOPERATIVE DIAGNOSES: Colorectal cancer screening and personal history of tubular adenoma of the colon. POSTOPERATIVE DIAGNOSES: Colorectal cancer screening and personal history of tubular adenoma of the colon, diverticulosis, internal hemorrhoids, limited colon prep. DESCRIPTION OF PROCEDURE: The patient was placed in the left lateral decubitus position. The digital rectal exam revealed no abnormalities. The Olympus video pediatric colonoscope was entered into the rectum and advanced easily to the cecum. Once in the cecum, I did identify cecal pouch, but visualization was partially limited due to some retained partially digested food matter. The majority of the cecum including the appendiceal orifice was visualized and appeared normal. The ileocecal valve appeared normal. Portions of the cecum could not be cleared completely. The scope was then slowly withdrawn assessing all mucosal surfaces carefully. Preparation throughout the colon was also somewhat limited due to similar retained partially digested food. I did not visualize any sign of polyps, colitis, nor angiodysplasia. I could not completely clear the areas of poor prep. There was some sigmoid diverticulosis noted. In the rectum, scope was retroflexed visualizing some internal hemorrhoids, but no other pathology. Portions of the rectal mucosa that I was able to visualize appeared normal. The scope was straightened and withdrawn from the patient. He tolerated the procedure well and was returned to recovery area in stable condition. IMPRESSION: 1. Diverticulosis. 2. Internal hemorrhoids. 3. Limited prep. PLAN: Rather than waiting 5 years, I would recommend a repeat colonoscopy with a better prep within 3 years. I think that interval is adequate given that his 2 previous colonoscopies were negative other than a small tubular adenoma and he has no family history of colon cancer, nor any ongoing worrisome GI symptoms. MD HENRIETTA Myers/SVETAL / [id number]
== END 2025-07-07 10:43 | disposition home or self-care (01) ==
PROVIDERS: PCP Internal Medicine; Visit Provider Internal Medicine
PROC: 0DJD8ZZ Inspection of Lower Intestinal Tract, Via Natural or Artificial Opening Endoscopic (ICD-10-PCS; CPT 45378; principal; 2025-07-07 08:40)
DX: Z12.11 Encounter for screening for malignant neoplasm of colon (principal); Z86.0101 Personal history of adenomatous and serrated colon polyps; K57.30 Diverticulosis of large intestine without perforation or abscess without bleeding; K64.8 Other hemorrhoids; J45.909 Unspecified asthma, uncomplicated; G89.29 Other chronic pain; M54.2 Cervicalgia; I10 Essential (primary) hypertension; L50.9 Urticaria, unspecified; Z79.51 Long term (current) use of inhaled steroids; Z79.899 Other long term (current) drug therapy; Z98.890 Other specified postprocedural states
CPT/HCPCS: 45378; J2003; J2704; J3010